=== PATIENT | male | born 1955 | race Hispanic/Latino ===

== ENCOUNTER 2020-08-14 19:02 | Inpatient (IN) | payer OTHER ==
[~2020-08-14] VITALS: Ht 177.8 cm; Wt 81.6 kg
[2020-08-14] MEDS ORDERED: CEFEPIME 1GM/NS 0.9% 50 ML 50 ML IV SCH (19:19)
[2020-08-14] MEDS ORDERED: VANCOMYCIN 1GM/NS 250 ML 250 ML IV STA (19:19)
[2020-08-14 19:58] LABS: BASOPHILS % 0.4 % (0.0-1.0); EOSINOPHILS # (AUTO) 0.3 (0.0-0.4); EOSINOPHILS % 3.7 % (0.0-6.0); HEMATOCRIT 32.1 % (38.2-49.6); HEMOGLOBIN 10.5 g/dL (14.0-18.0); LYMPHOCYTES # (AUTO) 2.1 (1.0-3.2); LYMPHOCYTES % 27.9 % (18.0-39.1); MEAN CORPUSCULAR HEMOGLOBIN 25.7 pg (28-32); MEAN CORPUSCULAR HGB CONC 32.7 g/dL (31-35); MEAN CORPUSCULAR VOLUME 78.7 fL (81-99); MONOCYTES # (AUTO) 0.5 (0.2-0.8); MONOCYTES % 6.4 % (4.4-11.3); NEUTROPHILS # (AUTO) 4.5 (2.1-6.9); NEUTROPHILS % 60.9 % (38.7-80.0); PLATELET COUNT 286 x10e3/uL (140-360); RED BLOOD COUNT 4.08 x10e6/uL (4.3-5.7); RED CELL DISTRIBUTION WIDTH 13.2 % (11.7-14.4)
[2020-08-14 20:12] LABS: ALANINE AMINOTRANSFERASE 12 IU/L (0-55); ALBUMIN 3.6 g/dL (3.5-5.0); ALKALINE PHOSPHATASE 124 IU/L (40-150); ANION GAP 13.4 mmol/L (8-16); BLOOD UREA NITROGEN 21 mg/dL (7-26); BUN/CREATININE RATIO 19 (6-25); CALCIUM 9.5 mg/dL (8.4-10.2); CARBON DIOXIDE 27 mmol/L (22-29); CHLORIDE 105 mmol/L (98-107); CREATINE KINASE 53 IU/L (30-200); EST GLOMERULAR FILTRATION RATE > 60 ML/MIN (60-); GLUCOSE 326 mg/dL (74-118); POTASSIUM 4.4 mmol/L (3.5-5.1); SODIUM 141 mmol/L (136-145)
--- OUTSIDE RECORDS SUMMARY | 2020-08-14 20:53 | XMS REPORT | Clinical Summary ---
Author Author [employer] Address Unknown Phone Unavailable Care Team Providers Care Phlebotomy Support Tech Name Role Phone Ronald Seay MD PCP Allergies No Known Active Allergies Medications End Date Status Medication Sig Dispensed Refills Start Date Active tamsulosin (FLOMAX) 0.4 Take 0.4 mg 0 mg capsule by mouth every morning. Active hydroCHLOROthiazide Take 25 mg by 0 (HYDRODIURIL) 25 MG mouth every tablet morning. Active insulin 70/30 NPH and Inject 30 0 regular human (HumuLIN Units under 70/30) 100 unit/mL the skin 2 (70-30) injection (two) times a day. Breakfast and at night Active lisinopriL (PRINIVIL) 40 Take 1 tablet 30 tablet 0 mg tablet (40 mg total) 0 by mouth daily. 04/27/2020 Discontinued (Stop Taking at Discharge) lisinopriL (PRINIVIL) 10 Take 10 mg by 0 mg tablet mouth every morning. Active Problems Problem Noted Date Prostatocystitis 04/19/2020 Encounters Care Team Description Date Type Specialty Herman Dobbs MD CYSTOSCOPY W/ SALINE BIPOLAR TRANSURETHR AL RESECTION OF PROSTATE, TRANSURETHRAL DRAINAGE OF PROSTATIC ABCESS, URINE AND PROSTATE ABCESS CULTURES 04/24/2020 Surgery Urology Niranjan, DO Skyler Fonseca Amybeth, APRN 04/24/2020 Anesthesia Urology Event Farshad Escalante MD Arriaga, Michael, MD Nguyen, Thuyen T., MD Lock, Coni Bui MD Prostatocystitis (Primary Dx); Hypotension, unspecified hypotension type; Tachycardia; Lactic acidosis; Shortness of breath; Hyperkalemia; Hyponatremia; Benign prostatic hyperplasia with lower urinary tract symptoms 04/19/2020 [facility] General Surgery - Encounter 04/27/2020 Herman Dobbs MD Preoperative testing (Primary Dx); Preop testing 04/19/2020 Pre-Admit Pre-Admission Testi ng Testing Appointment 04/19/2020 Travel 04/16/2020 Travel after 08/14/2019 Surgical History Surgery Date Site/Laterality Comments CYSTO, SALINE TURP 04/24/2020 N/A Procedure: CYSTOSCOPY W/ SALINE BIPOLAR (BIPOLAR) TRANSURETHRAL RESECTION OF PROSTATE, TRANSURETHRAL DRAINAGE OF PROSTATIC ABCESS, URINE AND PROSTATE ABCESS CULTURES; Surgeon: Marilyn Dobbs MD; Location: [facility]; Service: Urolog y; Laterality: N/A; Medical History Medical History Date Comments Hypertension 2015 Benign prostatic hyperplasia BPH (benign prostatic hyperplasia) Diabetes mellitus type I (HCC) 1999 ABS 120 -280 SOB (shortness of breath) on exertion Social History Date Tobacco Use Types Packs/Day Years Used Never Smoker 0 0 Smokeless Tobacco: Never Used Drinks/Week oz/Week Comments Alcohol Use 0 Glasses of wine 0 Cans of beer 0 Shots of liquor 0 Standard drinks or equivalent 0.0 Not Currently Sex Assigned at Date Recorded Not on file Last Filed Vital Signs Reading Time Taken Comments Vital Sign 180/89 04/27/2020 11:22 AM CDT Blood Pressure 76 04/27/2020 11:22 AM CDT Pulse 36.8 C (98.2 F) 04/27/2020 11:22 AM CDT Temperature 18 04/27/2020 11:22 AM CDT Respiratory Rate 95% 04/27/2020 11:22 AM CDT Oxygen Saturation - - Inhaled Oxygen Concentration 77.6 kg (171 lb) 04/25/2020 8:23 AM CDT Weight 177.8 cm (5' 10") 04/24/2020 6:46 AM CDT Height 24.54 04/24/2020 6:46 AM CDT Body Mass Index Plan of Treatment Health Maintenance Due Date Last Done Comments COLONOSCOPY SCREENING 2007 SHINGLES VACCINES (#1) 2007 INFLUENZA VACCINE 05/04/2020 Procedures Comments Procedure Name Priority Date/Time Associated Diag nosis POC GLUCOSE Routine 04/27/2020 11:22 AM CDT POC GLUCOSE Routine 04/27/2020 7:40 AM CDT HC COMPLETE BLD COUNT Routine 04/27/2020 W/AUTO DIFF 4:36 AM CDT ESTIMATED GFR Routine 04/27/2020 4:00 AM CDT BASIC METABOLIC PANEL Routine 04/27/2020 4:00 AM CDT POC GLUCOSE Routine 04/26/2020 8:59 PM CDT POC GLUCOSE Routine 04/26/2020 5:09 PM CDT POC GLUCOSE Routine 04/26/2020 11:05 AM CDT POC GLUCOSE Routine 04/26/2020 7:23 AM CDT ESTIMATED GFR Routine 04/26/2020 3:20 AM CDT HC COMPLETE BLD COUNT Routine 04/26/2020 W/AUTO DIFF 3:20 AM CDT BASIC METABOLIC PANEL Routine 04/26/2020 3:20 AM CDT POC GLUCOSE Routine 04/25/2020 9:26 PM CDT VANCOMYCIN LEVEL, TROUGH Timed 04/25/2020 5:30 PM CDT POC GLUCOSE Routine 04/25/2020 4:23 PM CDT POC GLUCOSE Routine 04/25/2020 11:20 AM CDT POC GLUCOSE Routine 04/25/2020 7:33 AM CDT POC GLUCOSE Routine 04/25/2020 5:40 AM CDT ESTIMATED GFR Routine 04/25/2020 4:35 AM CDT BASIC METABOLIC PANEL Routine 04/25/2020 4:35 AM CDT CBC WITH PLATELET AND Routine 04/25/2020 DIFFERENTIAL 4:15 AM CDT POC GLUCOSE Routine 04/25/2020 2:09 AM CDT POC GLUCOSE Routine 04/24/2020 9:04 PM CDT POC GLUCOSE Routine 04/24/2020 4:16 PM CDT POC GLUCOSE Routine 04/24/2020 11:14 AM CDT URINE CULTURE Timed 04/24/2020 11:05 AM CDT POC GLUCOSE Routine 04/24/2020 9:48 AM CDT AFB STAIN Timed 04/24/2020 9:13 AM CDT GRAM STAIN Timed 04/24/2020 9:13 AM CDT FUNGUS SMEAR Timed 04/24/2020 9:13 AM CDT AFB CULTURE Timed 04/24/2020 Benign prostati c 9:13 AM CDT hyperplasia with lower urinary tract symptoms AEROBIC CULTURE Timed 04/24/2020 Benign prostat ic 9:13 AM CDT hyperplasia with lower urinary tract symptoms FUNGUS CULTURE Timed 04/24/2020 Benign prostati c 9:13 AM CDT hyperplasia with lower urinary tract symptoms ANAEROBIC CULTURE Timed 04/24/2020 Benign prost atic 9:13 AM CDT hyperplasia with lower urinary tract symptoms ANAEROBIC CULTURE Timed 04/24/2020 Benign prost atic 9:00 AM CDT hyperplasia with lower urinary tract symptoms ANESTHESIA INTUBATION Routine 04/24/2020 8:16 AM CDT CYSTO, SALINE TURP 04/24/2020 Benign prostatic (BIPOLAR) 7:57 AM CDT hyperplasia with lo wer urinary tract symptoms Case Notes EST 75 MIN, POSSIBLE EXTENDED STAY Special Needs EST 75 MIN, POSSIBLE EXTENDED STAY ESTIMATED GFR Routine 04/24/2020 3:55 AM CDT HC COMPLETE BLD COUNT Routine 04/24/2020 W/AUTO DIFF 3:55 AM CDT BASIC METABOLIC PANEL Routine 04/24/2020 3:55 AM CDT POC GLUCOSE Routine 04/23/2020 9:01 PM CDT POC GLUCOSE Routine 04/23/2020 5:13 PM CDT POC GLUCOSE Routine 04/23/2020 12:17 PM CDT POC GLUCOSE Routine 04/23/2020 8:07 AM CDT ESTIMATED GFR Routine 04/23/2020 4:00 AM CDT BASIC METABOLIC PANEL Routine 04/23/2020 4:00 AM CDT HC COMPLETE BLD COUNT Routine 04/23/2020 W/AUTO DIFF 3:30 AM CDT POC GLUCOSE Routine 04/22/2020 9:29 PM CDT POC GLUCOSE Routine 04/22/2020 5:20 PM CDT POC GLUCOSE Routine 04/22/2020 12:49 PM CDT POC GLUCOSE Routine 04/22/2020 8:42 AM CDT ESTIMATED GFR Routine 04/22/2020 4:30 AM CDT VANCOMYCIN LEVEL, TROUGH Routine 04/22/2020 4:30 AM CDT HC COMPLETE BLD COUNT Routine 04/22/2020 W/AUTO DIFF 4:30 AM CDT BASIC METABOLIC PANEL Routine 04/22/2020 4:30 AM CDT POC GLUCOSE Routine 04/21/2020 8:56 PM CDT POC GLUCOSE Routine 04/21/2020 5:29 PM CDT POC GLUCOSE Routine 04/21/2020 12:36 PM CDT POC GLUCOSE Routine 04/21/2020 7:11 AM CDT ESTIMATED GFR Routine 04/21/2020 4:00 AM CDT HC COMPLETE BLD COUNT Routine 04/21/2020 W/AUTO DIFF 4:00 AM CDT BASIC METABOLIC PANEL Routine 04/21/2020 4:00 AM CDT POC GLUCOSE Routine 04/20/2020 8:56 PM CDT POC GLUCOSE Routine 04/20/2020 5:27 PM CDT POC GLUCOSE Routine 04/20/2020 12:55 PM CDT US RENAL Routine 04/20/2020 9:40 AM CDT POC GLUCOSE Routine 04/20/2020 7:45 AM CDT ESTIMATED GFR Routine 04/20/2020 5:15 AM CDT HIV AG/AB COMBINATION Routine 04/20/2020 5:15 AM CDT LACTIC ACID LEVEL Routine 04/20/2020 5:15 AM CDT MAGNESIUM LEVEL Routine 04/20/2020 5:15 AM CDT BASIC METABOLIC PANEL Routine 04/20/2020 5:15 AM CDT HC COMPLETE BLD COUNT Routine 04/20/2020 W/AUTO DIFF 5:15 AM CDT OSMOLALITY, URINE Routine 04/20/2020 5:15 AM CDT CREATININE LEVEL, URINE, Routine 04/20/2020 RANDOM 5:15 AM CDT SODIUM LEVEL, URINE, Routine 04/20/2020 RANDOM 5:15 AM CDT POC GLUCOSE Routine 04/20/2020 5:12 AM CDT LACTIC ACID LEVEL, SEPSIS Timed 04/19/2020 - NOW AND REPEAT 2X EVERY 11:40 PM CDT 3 HOURS TROPONIN Timed 04/19/2020 11:40 PM CDT COVID-19 QUALITATIVE PCR STAT 04/19/2020 9:35 PM CDT LACTIC ACID LEVEL, SEPSIS Timed 04/19/2020 - NOW AND REPEAT 2X EVERY 9:26 PM CDT 3 HOURS TROPONIN Timed 04/19/2020 9:26 PM CDT URINE CULTURE Routine 04/19/2020 7:34 PM CDT URINALYSIS SCREEN AND Routine 04/19/2020 MICROSCOPY, WITH REFLEX 7:[address] ANGIOGRAM PE CHEST STAT 04/19/2020 7:[address] ABDOMEN PELVIS W STAT 04/19/2020 CONTRAST 7:16 PM CDT VENOUS BLOOD GAS Routine 04/19/2020 6:35 PM CDT BETA HYDROXYBUTYRATE STAT 04/19/2020 6:30 PM CDT LACTIC ACID LEVEL STAT 04/19/2020 5:30 PM CDT ESTIMATED GFR STAT 04/19/2020 5:30 PM CDT B NATRIURETIC PEPTIDE STAT 04/19/2020 5:30 PM CDT TROPONIN STAT 04/19/2020 5:30 PM CDT CREATINE KINASE, TOTAL STAT 04/19/2020 (CPK) 5:30 PM CDT COMPREHENSIVE METABOLIC STAT 04/19/2020 PANEL 5:30 PM CDT PARTIAL THROMBOPLASTIN STAT 04/19/2020 TIME (PTT) 5:30 PM CDT PROTHROMBIN TIME WITH INR STAT 04/19/2020 5:30 PM CDT HC COMPLETE BLD COUNT STAT 04/19/2020 W/AUTO DIFF 5:30 PM CDT BLOOD CULTURE, AEROBIC & Routine 04/19/2020 ANAEROBIC 5:30 PM CDT BLOOD CULTURE, AEROBIC & Routine 04/19/2020 ANAEROBIC 5:25 PM CDT ECG ED PRELIMINARY Routine 04/19/2020 INTERPRETATION 5:13 PM CDT HI CRITICAL CARE, E/M Routine 04/19/2020 30-74 MINUTES 5:13 PM CDT ECG 12-LEAD STAT 04/19/2020 5:07 PM CDT COVID-19 QUALITATIVE PCR Routine 04/19/2020 Preop erative testing 4:31 PM CDT ECG PRE/POST OP Routine 04/19/2020 Preop testing 4:17 PM CDT ESTIMATED GFR Routine 04/19/2020 3:18 PM CDT HC COMPLETE BLD COUNT Routine 04/19/2020 Preop te sting W/AUTO DIFF 3:18 PM CDT COMPREHENSIVE METABOLIC Routine 04/19/2020 Preop testing PANEL 3:18 PM CDT HEMOGLOBIN A1C Routine 04/19/2020 Preop testing 3:18 PM CDT after 08/14/2019 Results * POC glucose (04/27/2020 11:22 AM CDT) Only the most recent of 33 results within the time period is included. POC glucose 204 (H) 65 - 99 mg/dL [facility] Comment: CONFUCIANISM Paper Deliverer Name: [facility] Device ID: [id number] Chartable: PENDING SALE TO [facility] Notified RN Specimen Blood Performing Organization Address City/State/ZIP Code P kelly Number [facility] DEPARTMENT OF [address] [place] [address] PATHOLOGY AND GENOMIC MEDICINE [place] [facility] [address] [place] [address] * CBC with platelet and differential (04/27/2020 4:36 AM CDT) Only the most recent of 10 results within the time period is included. [facility] WBC 9.93 4.50 - 11.00 k/uL [facility] RBC 3.43 (L) 4.40 - 6.00 m/uL [facility] HGB 8.4 (L) 14.0 - 18.0 g/dL [facility] HCT 27.4 (L) 41.0 - 51.0 % [facility] MCV 79.9 (L) 82.0 - 100.0 fL [facility] MCH 24.5 (L) 27.0 - 34.0 pg [facility] MCHC 30.7 (L) 31.0 - 37.0 g/dL [facility] RDW - SD 39.2 37.0 - 55.0 fL [facility] MPV 8.9 8.8 - 13.2 fL [facility] Platelet count 238 150 - 400 k/uL [facility] Nucleated RBC 0.00 /100 WBC [facility] Neutrophils 65.5 39.0 - 69.0 % [facility] Lymphocytes 19.4 (L) 25.0 - 45.0 % [facility] Monocytes 10.1 (H) 0.0 - 10.0 % [facility] Eosinophils 3.1 0.0 - 5.0 % [facility] Basophils 0.4 0.0 - 1.0 % [facility] Immature 1.5 (H)Comment: "Immature 0.0 - 1.0 % [facility] granulocytes granulocytes" (promyelocytes, METHOD IST myelocytes, metamyelocytes) HOSPITAL Specimen Blood Performing Organization Address City/State/ZIP Code P kelly Number [facility] DEPARTMENT OF [address] [place] [address] PATHOLOGY AND GENOMIC MEDICINE [address] * Estimated GFR (04/27/2020 4:00 AM CDT) Only the most recent of 10 results within the time period is included. [facility] Estimated GFR 69 mL/min/1.73 m2 [place] Comment: [facility] Interpretation G1 >=90 Normal or high G2 60-89 Mildly decreased G3a 45-59 Mildly to moderately decreased G3b 30-44 Moderately to severely decreased G4 15-29 Severely decreased G5 <15 Kidney failure The eGFR was calculated using the Chronic Kidney Disease Epidemiology Collaboration (CKD-EPI) equation. Interpretation is based on recommendations of the National Kidney Foundation-Kidney Disease Outcomes Quality Initiative (NKF-KDOQI) published in 2014. Specimen Performing Organization Address City/[facility] P kelly Number [facility] DEPARTMENT OF [address] [place] [address] PATHOLOGY AND GENOMIC MEDICINE [address] * Basic metabolic panel (04/27/2020 4:00 AM CDT) Only the most recent of 8 results within the time period is included. Pathologist [facility] Sodium 145 135 - 148 mEq/L [facility] Potassium 3.6 3.5 - 5.0 mEq/L [facility] Chloride 107 98 - 112 mEq/L [facility] CO2 27 24 - 31 mEq/L [facility] Anion gap 11@ANIO 7 - 15 mEq/L [facility] BUN 12 8 - 23 mg/dL [facility] Creatinine 1.13 0.70 - 1.20 mg/dL [facility] Glucose 117 (H) 65 - 99 mg/dL [facility] Calcium 9.1 8.8 - 10.2 mg/dL [facility] Specimen Blood Performing Organization Address City/[facility] P kelly Number [facility] [place] [address] PATHOLOGY AND [facility] [address] * Vancomycin level, trough (04/25/2020 5:30 PM CDT) Only the most recent of 2 results within the time period is included. Pathologist [facility] Vancomycin, 14.1 10.0 - 20.0 ug/mL [facility] trough Comment: CONFUCIANISM Therapeutic Ranges: HOSPITAL Peak 30.0 - 40.0 ug/mL Trough 10.0 - 20.0 ug/mL Specimen Serum Performing Organization Address City/[facility] P kelly Number [facility] [place] [address] PATHOLOGY AND GENOMIC MEDICINE [address] * Urine culture (04/24/2020 11:05 AM CDT) Only the most recent of 2 results within the time period is included. Pathologist [facility] Urine culture Staphylococcus aureus [facility] isolate 10-5 cfu/ml CONFUCIANISM susceptibility to [facility] This organism is Methicillin Resistant. (A) Comment: Specimen Information Specimen Source: Urine Specimen Site: Urinary bladder:Urine for culture/ Specimen Urine Antibiotic Method Susceptibility Organism Ampicillin MARIVEL mcg/mL: Resistant Staphylococcus aureus Cefazolin MARIVEL mcg/mL: Resistant Staphylococcus aureus Clindamycin MARIVEL <=0.5 mcg/mL: Susceptible Staphylococcus aureus Doxycycline MARIVEL <=0.5 mcg/mL: Susceptible Staphylococcus aureus Erythromycin MARIVEL >4 mcg/mL: Resistant Staphylococcus aureus Linezolid MARIVEL 2 mcg/mL: Susceptible Staphylococcus aureus Nitrofurantoin MARIVEL <=16 mcg/mL: Susceptible Staphylococcus aureus Oxacillin MARIVEL >4 mcg/mL: Resistant Staphylococcus aureus Penicillin G MARIVEL >1 mcg/mL: Resistant Staphylococcus aureus Rifampin MARIVEL <=0.25 mcg/mL: Susceptible Staphylococcus aureus Tetracycline MARIVEL <=0.5 mcg/mL: Susceptible Staphylococcus aureus Trimethoprim/Sulfamethoxazole MARIVEL <=0.5/9.5 mcg/mL: Susceptible Staphylococcus aureus Vancomycin MARIVEL 1 mcg/mL: Susceptible Staphylococcus aureus Performing Organization Address City/[facility]/ZIP Code P kelly Number [facility] [place] [address] PATHOLOGY AND [facility] [address] * Fungus smear (04/24/2020 9:13 AM CDT) Fungus smear No fungi observed. [facility] Comment: CONFUCIANISM Specimen Information HOSPITAL Specimen Source: Abscess Specimen Site: Prostate: drainage Specimen Abscess Performing Organization Address City/[facility] P kelly Number [facility] [place] [address] PATHOLOGY AND [facility] [address] * AFB culture (04/24/2020 9:13 AM CDT) AFB culture No growth after 6 weeks of [facility] isolate incubation. CONFUCIANISM Comment: HOSPITAL Specimen Information Specimen Source: Abscess Specimen Site: Prostate: drainage Specimen Drainage - Prostate Performing Organization Address City/[facility]/ZIP Code P kelly Number [facility] [place] [address] PATHOLOGY AND [facility] [address] * Aerobic culture (04/24/2020 9:13 AM CDT) Aerobic culture Staphylococcus aureus NADINE isolate Occasional CONFUCIANISM susceptibility to follow HOSPITAL This organism is Methicillin Resistant. (A) Comment: Specimen Information Specimen Source: Abscess Specimen Site: Prostate: drainage Specimen Drainage - Prostate Antibiotic Method Susceptibility Organism Ampicillin MARIVEL mcg/mL: Resistant Staphylococcus aureus Cefazolin MARIVEL mcg/mL: Resistant Staphylococcus aureus Chloramphenicol MARIVEL mcg/mL: Susceptible Staphylococcus aureus Clindamycin MARIVEL <=0.5 mcg/mL: Susceptible Staphylococcus aureus Doxycycline MARIVEL <=0.5 mcg/mL: Susceptible Staphylococcus aureus Erythromycin MARIVEL >4 mcg/mL: Resistant Staphylococcus aureus Linezolid MARIVEL 2 mcg/mL: Susceptible Staphylococcus aureus Minocycline MARIVEL <=1 mcg/mL: Susceptible Staphylococcus aureus Oxacillin MARIVEL >4 mcg/mL: Resistant Staphylococcus aureus Penicillin G MARIVEL >1 mcg/mL: Resistant Staphylococcus aureus Rifampin MARIVEL <=0.25 mcg/mL: Susceptible Staphylococcus aureus Tetracycline MARIVEL <=0.5 mcg/mL: Susceptible Staphylococcus aureus Trimethoprim/Sulfamethoxazole MARIVEL <=0.5/9.5 mcg/mL: Susceptible Staphylococcus aureus Vancomycin MARIVEL 1 mcg/mL: Susceptible Staphylococcus aureus Performing Organization Address [facility]/ZIP Code P kelly Number [facility] [place] [address] PATHOLOGY AND GENOMIC MEDICINE [place] CONFUCIANISM [address] [place] [address] * Gram stain (04/24/2020 9:13 AM CDT) Gram stain Occasional WBC's MCCOY isolate Moderate Gram positive cocci [facility] T in [facility] HOSPITAL Moderate Gram positive cocci in clusters Comment: Specimen Information Specimen Source: Abscess Specimen Site: Prostate: drainage Specimen Abscess Performing Organization Address [facility] P kelly Number [facility] [place] [address] PATHOLOGY AND GENOMIC MEDICINE [place] [facility]CIANISM [address] [place] [address] * AFB stain (04/24/2020 9:13 AM CDT) AFB stain No acid fast bacilli (AFB) MCCOY seen. CONFUCIANISM Comment: HOSPITAL Specimen Information Specimen Source: Abscess Specimen Site: Prostate: drainage Specimen Abscess Performing Organization Address City/[facility]/ZIP [facility] P kelly Number [facility] [place] [address] PATHOLOGY AND GENOMIC MEDICINE [place] CONFUCIANISM [address] [place] [address] * Fungus culture (04/24/2020 9:13 AM CDT) Fungus culture No growth after 4 weeks of MCCOY isolate incubation. CONFUCIANISM Comment: HOSPITAL Specimen Information Specimen Source: Abscess Specimen Site: Prostate: drainage Specimen Drainage - Prostate Performing Organization Address City/[facility]/ZIP Code P kelly Number [facility] DEPARTMENT OF [address] [place] [address] PATHOLOGY AND GENOMIC MEDICINE [place] CONFUCIANISM [address] [place] [address] * Anaerobic culture (04/24/2020 9:13 AM CDT) Only the most recent of 2 results within the time period is included. Anaerobic No anaerobic organisms [facility] culture isolate isolated. CONFUCIANISM Comment: HOSPITAL Specimen Information Specimen Source: Abscess Specimen Site: Prostate: drainage Specimen Drainage - Prostate Performing Organization Address City/[facility] Code P kelly Number [facility] [place] [address] PATHOLOGY AND GENOMIC MEDICINE [place] CONFUCIANISM [address] [place] [address] * Airway (04/24/2020 8:16 AM CDT) Narrative Performed At Macy Dejesus CRNA 0 8:17 AM Airway Performed by: Macy Dejesus CRNA Authorized by: Raymundo Ureña DO Location: OR Resident/CRANE HOIST OR LIFT OPERATOR/AA: Macy Dejesus CRNA Preoxygenated with 100% O2: Yes C-spine Precautions Maintained Througho ut: Yes Mask Ventilation: Not attempted Final Airway Type: Endotracheal airwa y Final Endotracheal Airway: ETT Technique Used: Direct laryngoscopy Blade Type: [place] Laryngoscope Blade/Videolaryngoscope Bl jhnony Size: 2 ETT Size (mm): 8.0 Measured from: Lips ETT to Lips (cm): 23 Placement Verified by: CO2 detection, d irect visualization and equal breath sounds Laryngoscopic view: Grade I - full vi ew of glottis Number of Attempts at Approach: 1 ANterior- EZ OETT, no problems, teeth a nd mouth protected and unchanged. * US Renal (04/20/2020 9:40 AM CDT) Specimen Narrative Performed At EXAMINATION: US RENAL RADIANT CLINICAL HISTORY: acute renal failure COMPARISON: CT abdomen and pelvis perfo rmed April 19, 2020. IMPRESSION: 1.No hydronephrosis. 2.Normal renal size and echogenicity. 3.Diffuse bladder wall thickening may b e due detrussor muscle hypertrophy from chronic outlet obstruction or secondary to inflammatory or infectious cystitis. FINDINGS: RIGHT KIDNEY: *Position and Orientation: Normal. *Renal Cortical Echogenicity: Normal. *Size: 10.5 x 6.2 x 4.7 cm. *Cyst: 3.6 cm cyst of the anterior lowe r pole. *Mass: None. *Calculus: None. *Hydronephrosis: None. LEFT KIDNEY: *Position and Orientation: Normal. *Renal Cortical Echogenicity: Normal. *Size: 10.2 x 6.8 x 5.8 cm. *Cyst: None. *Mass: None. *Calculus: None. *Hydronephrosis: None. BLADDER: Urinary bladder wall is diffus marie thickened, and the lumen is decompressed by a Plummer. [id number] Procedure Note Hm Interface, Radiology Results Incoming - 04/20/2020 11:34 AM CDT EXAMINATION: US RENAL CLINICAL HISTORY: acute renal failure COMPARISON: CT abdomen and pelvis performed April 19, 2020. IMPRESSION: 1.No hydronephrosis. 2.Normal renal size and echogenicity. 3.Diffuse bladder wall thickening may be due detrussor muscle hypertrophy from chronic outlet obstruction or secondary to inflammatory or infectious cystitis. FINDINGS: RIGHT KIDNEY: *Position and Orientation: Normal. *Renal Cortical Echogenicity: Normal. *Size: 10.5 x 6.2 x 4.7 cm. *Cyst: 3.6 cm cyst of the anterior lower pole. *Mass: None. *Calculus: None. *Hydronephrosis: None. LEFT KIDNEY: *Position and Orientation: Normal. *Renal Cortical Echogenicity: Normal. *Size: 10.2 x 6.8 x 5.8 cm. *Cyst: None. *Mass: None. *Calculus: None. *Hydronephrosis: None. BLADDER: Urinary bladder wall is diffusely thickened, and the lumen is decompressed by a Plummer. [id number] Performing Organization Address City/State/ZIP Code P kelly Number [facility] [address] [place] [address] * HIV Ag/Ab combination (04/20/2020 5:15 AM CDT) HIV Ag/Ab Non-reactive Non-reactive [facility] Specimen Blood Performing Organization Address City/State/ZIP Code P kelly Number [facility] DEPARTMENT OF [address] [place] [address] PATHOLOGY AND GENOMIC MEDICINE [address] * Sodium level, urine, random (04/20/2020 5:15 AM CDT) Sodium, urine, 99 mEq/L [facility] random [facility] Specimen Urine Performing Organization Address City/[facility]/ZIP Code P kelly Number [facility] [place] [address] PATHOLOGY AND GENOMIC MEDICINE [address] * Osmolality, urine (04/20/2020 5:15 AM CDT) Osmolality, 408 50 - 1,400 mOsm/kg [facility] urine [facility] Specimen Urine Performing Organization Address City/[facility] P kelly Number [facility] [place] [address] PATHOLOGY AND [facility] [address] * Creatinine level, urine, random (04/20/2020 5:15 AM CDT) Creatinine, 52 mg/dL [place] urine, random [facility] Specimen Urine Performing Organization Address City/[facility] [facility] [facility] [place]elly Number [facility] [place] [address] PATHOLOGY AND GENOMIC MEDICINE [address] * Magnesium level (04/20/2020 5:15 AM CDT) Magnesium 1.9 1.6 - 2.4 mg/dL [facility] Specimen Blood Performing Organization Address City/[facility]/ZIP Code P kelly Number [facility] OF [address] [place] [address] PATHOLOGY AND GENOMIC MEDICINE [address] * Lactic acid level (04/20/2020 5:15 AM CDT) Only the most recent of 2 results within the time period is included. Lactic acid 1.6 0.5 - 2.2 mmol/L [facility] Specimen Blood Performing Organization Address City/[facility]/ZIP Code P kelly Number [facility] [address] [place] [address] PATHOLOGY AND GENOMIC MEDICINE [address] * Lactic acid level, SEPSIS - Now and repeat 2x every 3 hours (04/19/2020 11:40 PM CDT) Only the most recent of 2 results within the time period is included. Lactic acid 1.6 0.5 - 2.2 mmol/L [facility] Specimen Blood Performing Organization Address [facility] P kelly Number [facility] [place] [address] PATHOLOGY AND GENOMIC MEDICINE [address] * Troponin (04/19/2020 11:40 PM CDT) Only the most recent of 3 results within the time period is included. Troponin <0.006 0.000 - 0.040 ng/mL [facility] Comment: CONFUCIANISM In patients suspected of HOSPITAL having a myocardial infarction, along with all other appropriate clinical measures and actions including ECG and other diagnostics as appropriate, measure Ultra TnI at 0 hrs and at 3 hrs. Myocardial infarction VERY LIKELY The 0 hr TnI level is > 0.10 ng/mL Myocardial infarction LIKELY The 0 hr TnI level is > 0.04 ng/mL and 3 hr level is increased or decreased by at least 0.020 ng/mL Myocardial infarction VERY UNLIKELY Both the 0 hr and 3 hr TnI levels <= 0.04 ng/mL(within normal limits) OR 0 hr is > 0.04 ng/mL and 3 hr is increased OR decreased by less than 0.020 ng/mL Specimen Blood Performing Organization Address City/[facility]/ZIP Code P kelly Number [place] [id number] PATHOLOGY AND GENOMIC MEDICINE [place] [id number] [facility]ITAL * COVID-19 qualitative PCR (04/19/2020 9:35 PM CDT) Only the most recent of 2 results within the time period is included. Interpretation Negative results do not MCC[place] preclude 2019-nCoV infection CONFUCIANISM and should not be used as the HOSPITAL sole basis for treatment or other patient management decisions. Negative results must be combined with clinical observations, patient history, and epidemiological information. COVID-19 Not-Detected Not-Detected [facility] qualitative PCR CONFUCIANISM result HOSPITAL COVID-19 See link below for PDF Lab [facility] qualitative PCR ReportComment: Case Number: CONFUCIANISM [id number] HOSPITAL Specimen Nasopharyngeal swab Performing Organization Address [facility] P kelly Number [facility] [place] [address] PATHOLOGY AND GENOMIC MEDICINE [address] * Urinalysis screen and microscopy, with reflex to culture (04/19/2020 7:20 PM CDT) Specimen site Clean catch [facility] Color, UA Yellow [facility] Appearance, UA Hazy [facility] Specific 1.026 1.001 - 1.035 [facility] pH, UA 6.0 5.0 - 8.5 [facility] Protein, UA 2+ (A) Negative [facility] Glucose, UA 3+ (A) Negative [facility] Ketones, UA Negative Negative [facility] Bilirubin, UA Negative Negative [facility] Blood, UA Negative Negative [facility] Nitrite, UA Negative Negative [facility] Urobilinogen, <2.0 <2.0 [facility] Leukocyte Trace (A) Negative [facility] WBC, UA 9 (H) 0 - 1 /HPF [facility] RBC, UA 3 0 - 5 /HPF [facility] Bacteria, UA Few None seen [facility] WBC clumps, UA Few (A) [facility] Yeast, UA None seen [facility] Yeast with None seen [facility] Hyaline casts, 11 /LPF [facility] Specimen Urine Performing Organization Address [facility] P kelly Number [facility] [place] [address] PATHOLOGY AND GENOMIC MEDICINE [facility] CONFUCIANISM [address] [place] [address] H[address]ITAL * CT Angiogram Pe Chest (04/19/2020 7:16 PM CDT) Specimen Narrative Performed At EXAMINATION: CT ANGIOGRAM PE CHEST [facility] CLINICAL HISTORY: 64 years Male sob h ypotenstion tachycardia TECHNIQUE: Contrast enhanced multidet soumya-row chest computed tomography protocol. Computed tomographic angiogra phic images of the chest and upper abdomen were obtained during the uncomp licated intravenous administration of iodinated contrast utilizing a bolus-tracking technique centered on the main pulmonary artery and iterative reconstruction techniques and/or automa liu exposure control to reduce radiation dose. Computerized reformatted images a nd 3-D Coronal MIP images were created by a dedicated wood technologist at the scanner and archive d in PACS. COMPARISON: None available. FINDINGS: Study Quality: The examination for the diagnosis of pulmonary embolism is adequate. Pulmonary arteries: *Normal without acute pulmonary embolis m. *Normal main pulmonary trunk. Pulmonary Parenchyma and airways: *Patent central airways. *Faint tree-in-bud opacities with mild bronchial thickening is noted within the right upper lung, nonspecific. *No suspicious pulmonary nodule. Pleural spaces: No pleural effusion or pneumothorax. Cardiovascular: *The cardiac chambers are normal in siz e. *No pericardial abnormality is present. *Multifocal mild atherosclerotic diseas e. Mediastinum and Mary: No mediastinal ma ss or enlarged lymph node. Osseous structures and Chest Wall: No a cute or pathologic osseous or soft-tissue process is present. Lower Neck: No actionable thyroid nodul e. Upper Abdomen: Please refer to the conc urrently obtained but separately dictated CT of the abdomen and pelvis for furthe r evaluation of the upper abdominal structures. Additional Findings: None. IMPRESSION: 1.No acute pulmonary embolism. 2.Nonspecific findings within the right upper lung which could represent mild chronic bronchitis/small vessel disease , clinical correlation recommended. No lobar consolidation. 3.Please refer to the concurrently obta ined but separately dictated CT the abdomen and pelvis for further evaluati on. [facility]-[id number] Procedure Note Interface, Radiology Results Incoming - 04/19/2020 7:25 PM CDT EXAMINATION: CT ANGIOGRAM PE CHEST CLINICAL HISTORY: 64 years Male sob hypotenstion tachycardia TECHNIQUE: Contrast enhanced multidetector-row chest computed tomography protocol. Computed tomographic angiographic images of the chest and upper abdomen were obtained during the uncomplicated intravenous administration of iodinated contrast utilizing a bolus-tracking technique centered on the main pulmonary artery and iterative reconstruction techniques and/or automated exposure control to reduce radiation dose. Computerized reformatted images and 3-D Coronal MIP images were created by a dedicated wood technologist at the scanner and archived in PACS. COMPARISON: None available. FINDINGS: Study Quality: The examination for the diagnosis of pulmonary embolism is adequate. Pulmonary arteries: *Normal without acute pulmonary embolism. *Normal main pulmonary trunk. Pulmonary Parenchyma and airways: *Patent central airways. *Faint tree-in-bud opacities with mild bronchial thickening is noted within the right upper lung, nonspecific. *No suspicious pulmonary nodule. Pleural spaces: No pleural effusion or pneumothorax. Cardiovascular: *The cardiac chambers are normal in size. *No pericardial abnormality is present. *Multifocal mild atherosclerotic disease. Mediastinum and Mary: No mediastinal mass or enlarged lymph node. Osseous structures and Chest Wall: No acute or pathologic osseous or soft-tissue process is present. Lower Neck: No actionable thyroid nodule. Upper Abdomen: Please refer to the concurrently obtained but separately dictated CT of the abdomen and pelvis for further evaluation of the upper abdominal structures. Additional Findings: None. IMPRESSION: 1.No acute pulmonary embolism. 2.Nonspecific findings within the right upper lung which could represent mild chronic bronchitis/small vessel disease, clinical correlation recommended. No lobar consolidation. 3.Please refer to the concurrently obtai teddy but separately dictated CT the abdomen and pelvis for further evaluation. [facility]-[id number] Performing Organization Address City/State/ZIP Code P kelly Number [facility] [address] [place] [address] * CT Abdomen Pelvis W Contrast (04/19/2020 7:16 PM CDT) Specimen Narrative Performed At EXAMINATION: CT ABDOMEN PELVIS W CONTRAST SHANICE NT CLINICAL HISTORY: lower abd pain TECHNIQUE: Multiple axial images of the abdomen and pelvis were obtained following intravenous administration of iodinated contrast. Sagittal and coronal computerized reformatted images were al so obtained.. All CT images were acquired using radiation dose lowering technique with automated exposure control and / or iterative reconstruction. COMPARISON: No IMPRESSION: ABDOMEN: 1. Volume loss and scarring in the late ral segment of the middle lobe. Minimal bibasilar scarring elsewhere. Lung base s otherwise clear. 2.The appendix is thickened, measuring 10 mm transverse, though there is no adjacent inflammation to indicate acute appendicitis. No discrete appendiceal mass is identified. A six-month follow- up is advised to exclude the possibility of an early appendiceal neoplasm. 3.Bowel loops show no evidence of obstr uction or acute inflammation, otherwise grossly unremarkable without enteric co ntrast. 4.Phrygian cap or tiny focus of adenomy omatosis at the gallbladder fundus which otherwise unremarkable. 5.Liver, bile ducts, pancreas unremarka ble. Spleen is borderline enlarged without focal lesion. 6.Adrenals, abdominal aorta and left ki dney unremarkable. An exophytic 3 cm cyst in the lower pole right kidney. No hydr onephrosis PELVIS: 1. Trace presacral stranding and free f luid. Upper normal external iliac lymph nodes and common iliac lymph nodes are likely reactive. 2.The prostate is nearly entirely repla oanh by multifocal rim-enhancing fluid collections, measuring up to 4.1 x 2.1 cm. The fluid collections extend caudally with broad abutment of the right levato r ani, and infra-levator extension, to involve the anterior margin of the external anal sp hincter, and the right obturator internus 3.The urinary bladder collapsed Plummer c atheter demonstrates wall thickening and stranding, indicative of cystitis. Semi nal vesicles are edematous. SUMMARY: Cystoprostatitis, with multifocal absce ss collections replacing the prostate diffusely, as well as involvement of th e pelvic floor on the right, and infra-levator extension on the right, w ith abutment of the right obturator internus. Thickened appendix without evidence of acute appendicitis or discrete mass. A six-month follow-up is advised to ensur e stability. Other incidental findings as above [id number] Procedure Note Hm Interface, Radiology Results Incoming - 04/19/2020 7:32 PM CDT EXAMINATION: CT ABDOMEN PELVIS W CONTRAST CLINICAL HISTORY: lower abd pain TECHNIQUE: Multiple axial images of the abdomen and pelvis were obtained following intravenous administration of iodinated contrast. Sagittal and coronal computerized reformatted images were also obtained.. All CT images were acquired using radiation dose lowering technique with automated exposure control and / or iterative reconstruction. COMPARISON: No IMPRESSION: ABDOMEN: 1. Volume loss and scarring in the later al segment of the middle lobe. Minimal bibasilar scarring elsewhere. Lung bases otherwise clear. 2.The appendix is thickened, measuring 1 0 mm transverse, though there is no adjacent inflammation to indicate acute appendicitis. No discrete appendiceal mass is identified. A six-month follow-up is advised to exclude the possibility of an early appendiceal neoplasm. 3.Bowel loops show no evidence of obstru ction or acute inflammation, otherwise grossly unremarkable without enteric contrast. 4.Phrygian cap or tiny focus of adenomyo matosis at the gallbladder fundus which otherwise unremarkable. 5.Liver, bile ducts, pancreas unremarkab le. Spleen is borderline enlarged without focal lesion. 6.Adrenals, abdominal aorta and left kid mildred unremarkable. An exophytic 3 cm cyst in the lower pole right kidney. No hydronephrosis PELVIS: 1. Trace presacral stranding and free fl uid. Upper normal external iliac lymph nodes and common iliac lymph nodes are likely reactive. 2.The prostate is nearly entirely replac ed by multifocal rim-enhancing fluid collections, measuring up to 4.1 x 2.1 cm. The fluid collections extend caudally with broad abutment of the right levator ani, and infra-levator extension, to involve the anterior margin of the external anal sphincter, and the right obturator internus 3.The urinary bladder collapsed Plummer ca theter demonstrates wall thickening and stranding, indicative of cystitis. Seminal vesicles are edematous. SUMMARY: Cystoprostatitis, with multifocal abscess collections replacing the prostate diffusely, as well as involvement of the pelvic floor on the right, and infra- levator extension on the right, with abutment of the right obturator internus. Thickened appendix without evidence of acute appendicitis or discrete mass. A six-month follow-up is advised to ensure stability. Other incidental findings as above [id number] Performing Organization Address City/State/ZIP Code P kelly Number [facility] [address] [place] [address] * Venous blood gas (04/19/2020 6:35 PM CDT) pH, venous 7.35 7.32 - 7.42 [facility] pCO2, venous 48 45 - 51 mmHg [facility] pO2, venous 28 25 - 40 mmHg [facility] Base excess, 1 -2 - 2 meq/L [facility] O2 saturation, 54 40 - 70 % [facility] Bicarbonate, 26.0 21.0 - 28.0 mmol/L [facility] Specimen Blood Performing Organization Address City/[facility] P kelly Number [facility] [place] [address] [address] * Beta hydroxybutyrate (04/19/2020 6:30 PM CDT) [facility] Beta 0.07 0.02 - 0.27 mmol/L [facility] hydroxybutyrate [facility] Specimen Serum Performing Organization Address [facility] P kelly Number [facility] [place] [address] * Blood culture, aerobic & anaerobic (04/19/2020 5:30 PM CDT) Only the most recent of 2 results within the time period is included. [facility] Blood culture No growth after 5 days of [facility] isolate incubation. CONFUCIANISM Comment: HOSPITAL Specimen Information Specimen Source: Blood Specimen Site: Forearm, right Specimen Blood - Forearm, right Performing Organization Address [facility] P kelly Number [facility] [address] * Partial thromboplastin time, activated (04/19/2020 5:30 PM CDT) [facility] PTT 42.3 (H) 23.0 - 36.0 sec [facility] Comment: CONFUCIANISM PTT therapeutic range for HOSPITAL unfractionated heparin is 61.0-112.0 seconds which corresponds to Anti-Xa 0.3-0.7 U/ml. Specimen Blood Performing Organization Address [facility] P kelly Number [facility] [place] [address] * Prothrombin time with INR (04/19/2020 5:30 PM CDT) [facility] Prothrombin 14.9 (H) 11.5 - 14.5 sec [facility] time [facility] INR 1.2 [facility] Comment: CONFUCIANISM The International Normalized HOSPITAL Ratio (INR) is a therapeutic monitoring tool for patients who are stable on oral anticoagulant therapy. An INR of 2.0-3.0 is suggested for deep vein thrombosis/pulmonary embolism. Specimen Blood Performing Organization Address [facility]/State/ZIP Code P kelly Number [facility] OF [address] [place] [address] PATHOLOGY AND GENOMIC MEDICINE [address] * B natriuretic peptide (04/19/2020 5:30 PM CDT) BNP 11 0 - 100 pg/mL [facility] Specimen Blood Performing Organization Address City/State[place] [facility] [place] Number [facility] [address] [place] [address] PATHOLOGY AND GENOMIC MEDICINE [address] * Creatine kinase, total (CPK) (04/19/2020 5:30 PM CDT) Creatine kinase 25 (L) 39 - 308 U/L [facility] Specimen Blood Performing Organization Address City/[facility] P kelly Number [facility] [address] [place] [address] PATHOLOGY AND GENOMIC MEDICINE [address] * Comprehensive metabolic panel (04/19/2020 5:30 PM CDT) Only the most recent of 2 results within the time period is included. Sodium 130 (L) 135 - 148 mEq/L [facility] Potassium 5.1 (H) 3.5 - 5.0 mEq/L [facility] Chloride 90 (L) 98 - 112 mEq/L [facility] CO2 23 (L) 24 - 31 mEq/L [facility] Anion gap 17@ANIO (H) 7 - 15 mEq/L [facility] BUN 26 (H) 8 - 23 mg/dL [facility] Creatinine 1.41 (H) 0.70 - 1.20 mg/dL [facility] Glucose 380 (H) 65 - 99 mg/dL [facility] Calcium 10.5 (H) 8.8 - 10.2 mg/dL [facility] Protein 8.6 (H) 6.3 - 8.3 g/dL [facility] Comment: [facility] 4.6-7.0 g/dL 1 week 4.4-7.6 g/dL 7 months-1year 5.1-7.3 g/dL 1-2 years 5.6-7.5 g/dL >3 years 6.0-8.0 g/dL 18-150 6.3-8.3 g/dL Albumin 3.4 (L) 3.5 - 5.0 g/dL [facility] A/G ratio 0.7 0.7 - 3.8 [facility] Alkaline 225 (H) 40 - 129 U/L [facility] phosphatase [facility] AST 18 10 - 50 U/L [facility] ALT 14 5 - 50 U/L [facility] Total bilirubin 0.4 0.0 - 1.2 mg/dL [facility] Specimen Blood Performing Organization Address City/State/ZIP Code P kelly Number [facility] [address] [place] [address] PATHOLOGY AND GENOMIC MEDICINE [address] * ECG ED Preliminary Interpretation - Not an Order (04/19/2020 5:13 PM CDT) Narrative Performed At Farshad Escalante MD 0 9:18 AM ECG ED Preliminary Interpretation - Not an Order Performed by: Farshad Escalante MD Authorized by: Farshad Escalante MD ECG reviewed by ED Physician in the abs ence of a telecommunications professional: yes Interpretation: Interpretation: abnormal Rate: ECG rate: 104 ECG rate assessment: tachycardic Rhythm: Rhythm: sinus tachycardia Ectopy: Ectopy: none QRS: QRS axis: Normal QRS intervals: Normal Conduction: Conduction: abnormal Abnormal conduction: LAFB ST segments: ST segments: Normal T waves: T waves: normal * CRITICAL CARE (04/19/2020 5:13 PM CDT) Narrative Performed At Farshad Escalante MD 0 9:18 AM Critical Care Performed by: Ofe Lemus P A Authorized by: Farshad Escalante MD Critical care provider statement: Critical care time (minutes): 35 Critical care time was exclusive of: Separately billable procedures and treating other patients Critical care was necessary to treat or prevent imminent or life-threatening deterioration of the f ollowing conditions: Sepsis Critical care was time spent personal ly by me on the following activities: Blood draw for specimens, development of treatment plan with patient or surrogate, discussions with primary provider, evaluation of patient's response to treatment, discus sions with consultants, examination of patient, review of old charts, pulse oximetry, re-evaluation of patient's condition, ordering and revie w of laboratory studies, ordering and review of radiographic studies and ordering and performing treatments and interventions Gurvinder 'yes' if you are taking over cri tical care for this patient from another provider.: no * ECG 12 lead (04/19/2020 5:07 PM CDT) Ventricular 104 [facility] rate Atrial rate 104 [facility] HI interval 166 [facility] QRSD interval 106 [facility] QT interval 334 [facility] QTC interval 439 [facility] P axis 1 47 [facility] QRS axis 1 -62 [facility] T wave axis 65 [facility] EKG impression Sinus tachycardia-Left [facility] anterior fascicular block-Abnormal ECG-In automated comparison with ECG of 19-APR-2020 16:17,-Left anterior fascicular block is now present- Specimen Narrative Performed At This result has an attachment that is n ot available. Performing Organization Address City/State/ZIP Code P kelly Number [facility] [address] [place] [address] * ECG Pre/Post Op (04/19/2020 4:17 PM CDT) Ventricular 93 [facility] rate Atrial rate 93 [facility] HI interval 164 [facility] QRSD interval 108 [facility] QT interval 350 [facility] QTC interval 435 [facility] P axis 1 66 [facility] QRS axis 1 -6 [facility] T wave axis 62 [facility] EKG impression Normal sinus rhythm-Incomplete [facility] MU SE left bundle branch block-Borderline ECG-No previous ECGs available- Specimen Narrative Performed At This result has an attachment that is n ot available. Performing Organization Address City/State/ZIP Code P kelly Number [facility] [address] [place] [address] * Hemoglobin A1c (04/19/2020 3:18 PM CDT) Hemoglobin A1C 11.1 (H) 4.0 - 5.6 % [facility] Comment: CONFUCIANISM HbA1c cutoffs for diagnosing HOSPITAL diabetes: 4.0% - 5.6% = normal 5.7% - 6.4% = increased risk for diabetes (prediabetes)9 >=6.5% = diabetes9 Goals for glycemic control (ADA 2016) < 7.0% Target for non adults with diabetes. More or less stringent targets may be appropriate for individual patients. <7.5% Target for Children and adolescents with type 1 diabetes. Specimen Blood Performing Organization Address City/State/ZIP Code P kelly Number [facility] [address] [place] [address] PATHOLOGY AND GENOMIC MEDICINE [facility] CONFUCIANISM [address] [place] [address] HOSPITAL after 08/14/2019 Insurance Type Payer Benefit Subscriber ID Effective Phone Address Plan / Dates Group HMO/PPO [facility] [id number] 2019-P THCARE resent CHOICE/CHO ICE + Advance Directives For more information, please contact: [phone] Patient Dye Weigher Explanation Type Date Recorded VERBAL Advance Directives, 04/19/2020 8:57 PM Living Will and Medical Power of Chef French
--- OUTSIDE RECORDS SUMMARY | 2020-08-14 20:53 | XMS REPORT | Continuity of Care Document ---
Author Author [facility] t Organization Formerly [facility] Address [address] [place] [address] Phone Unavailable Care Team Providers Care Relish Maker Name Role Phone Dawood EDMONDSON, Fabio Cardenas PCP [phone] Ava EDMONDSON, [facility] Attphys Catrachita EDMONDSON, Edgardo Attphys Ava EDMONDSON, Sveta Cain Attphys Austin EDMONDSON, [facility] Att[facility] Raymundo Ureña DO Attphys Vinnie Holland APRN Attphys Dilia EDMONDSON, oJi Sutton Attphys EDGARDO MORALES Admphys Unavailable Payers Payer Name Policy Type Policy Number Effective Date Expiration Date S kaiden [facility] CHOICE/CHOICE [id number] 2018-PresentHMO/ PPO [id number] 2019 00:00:00 Pk Cain Problems Condition Name Condition Details Condition Category Status Onset Date Resolution Date Last Treatment Date Treating Clinician Comments Source Prostatocystitis Prostatocystitis Disease Active 2020-04-19 00:00:00 Pk Cain Allergies, Adverse Reactions, Alerts Allergy Name Allergy Type Status Severity Reaction(s) Onset Date Inacti ve Date Treating Clinician Comments Source No Known Allergies DA Active U 2019-09-11 00:00:00 [facility] Social History Social Habit Start Date Stop Date Quantity Comments Source Sex Assigned At Sujatha shaikh Islam Tobacco use and exposure 2020-04-26 00:00:00 2020-04-26 00:00:00 Ida appiah used Pk Cain Alcohol intake 2020-04-26 00:00:00 2020-04-26 00:00:00 Ex-drinker (fi nding) Pk Cain Smoking Status Start Date Stop Date Source Never smoker Pk Vinson t Medications Ordered Medication Name Filled Medication Name Start Date Stop Da te Current Medication? Ordering Clinician Indication Dosage Frequency Signature (SIG) Comments Components Source lisinopriL (PRINIVIL) 40 mg tablet 2020-04-28 00:00:00 Yes 40mg QD Take 1 tablet (40 mg total) by mouth daily. Gabriela Cain lisinopriL (PRINIVIL) 10 mg tablet 2020-04-27 13:31:23 202 00:00:00 No 10mg QD Take 10 mg by mouth every morning. Pk Cain tamsulosin (FLOMAX) 0.4 mg capsule 2020-04-27 13:31:18 Yes .4mg QD Take 0.4 mg by mouth every morning. Pk Nice ethodi hydroCHLOROthiazide (HYDRODIURIL) 25 MG tablet 2020-04-27 13:31: 18 Yes 25mg QD Take 25 mg by mouth every morning. Pk Cain insulin 70/30 NPH and regular human (Hum uLIN 70/30) 100 unit/mL (70-30) injection 2020-04-27 13:31:18 Yes 30U Q. 5D Inject 30 Units under the skin 2 (two) times a day. Breakfast and at night Pk Cain Vital Signs Vital Name Observation Time Observation Value Comments Source Systolic blood pressure 2020-04-27 11:22:06 180 mm[Hg] Pk Cain Diastolic blood pressure 2020-04-27 11:22:06 89 mm[Hg] Pk Cain Heart rate 2020-04-27 11:22:06 76 /min Pk Cain Body temperature 2020-04-27 11:22:06 36.78 Becka Hous ton Islam Respiratory rate 2020-04-27 11:22:06 18 /min Mili murphy Islam Oxygen saturation in Arterial blood by Pulse oximetry 04-27 11:22:06 95 /min Pk Islam Body weight 2020-04-25 08:23:00 77.565 kg Pk Cain BMI 2020-04-25 08:23:00 24.54 kg/m2 Pk Cain Body height 2020-04-24 06:46:00 177.8 cm Pk Cain Procedures Procedure Date / Time Performed Performing Clinician Sourc e POC GLUCOSE 2020-04-27 11:22:00 Coni Avilaist POC GLUCOSE 2020-04-27 07:40:00 Coni Avila HC COMPLETE BLD COUNT W/AUTO DIFF 2020-04-27 04:36:00 Franchesca Escalante BASIC METABOLIC PANEL 2020-04-27 04:00:00 Su Escalante Islam ESTIMATED GFR 2020-04-27 04:00:00 Su Escalante Meth odist POC GLUCOSE 2020-04-26 20:59:00 Coni Avilaist POC GLUCOSE 2020-04-26 17:09:00 Coni Avila Islam POC GLUCOSE 2020-04-26 11:05:00 Coni Avila Islam POC GLUCOSE 2020-04-26 07:23:00 Coni Avila Islam BASIC METABOLIC PANEL 2020-04-26 03:20:00 Coni Avila Islam HC COMPLETE BLD COUNT W/AUTO DIFF 2020-04-26 03:20:00 Zehra Avila ESTIMATED GFR 2020-04-26 03:20:00 Coni Avila POC GLUCOSE 2020-04-25 21:26:00 Coni Avila VANCOMYCIN LEVEL, TROUGH 2020-04-25 17:30:00 Herb Roldan Islam POC GLUCOSE 2020-04-25 16:23:00 Coni Avila POC GLUCOSE 2020-04-25 11:20:00 Lock, Coni Cain POC GLUCOSE 2020-04-25 07:33:00 Lock, Coni HuRenataChetan Pk Cain POC GLUCOSE 2020-04-25 05:40:00 Lock, Coni HuRenataChetan Pk Cain BASIC METABOLIC PANEL 2020-04-25 04:35:00 Lock, Coni montemayor Islam ESTIMATED GFR 2020-04-25 04:35:00 Lock, Coni SparkleChetan Pk Cain CBC WITH PLATELET AND DIFFERENTIAL 2020-04-25 04:15:00 Lock, Lazaro fish Ramya Cain POC GLUCOSE 2020-04-25 02:09:00 Lock, Coni Ramya Cain POC GLUCOSE 2020-04-24 21:04:00 Lock, Coni SparkleChetan Pk Cain POC GLUCOSE 2020-04-24 16:16:00 Lock, Coni HuRenataChetan Pk Cain POC GLUCOSE 2020-04-24 11:14:00 Coni Avila URINE CULTURE 2020-04-24 11:05:00 Herman Cortez Mi thodist POC GLUCOSE 2020-04-24 09:48:00 Coni Avila ANAEROBIC CULTURE 2020-04-24 09:13:00 Herman Cortez FUNGUS CULTURE 2020-04-24 09:13:00 Herman Cortez Mi thodist AEROBIC CULTURE 2020-04-24 09:13:00 Herman Cortez Mi thodist AFB CULTURE 2020-04-24 09:13:00 Herman Cortez Me thodist GRAM STAIN 2020-04-24 09:13:00 Herman Cortez Me thodist AFB STAIN 2020-04-24 09:13:00 Herman Cortez Mi thodist ANAEROBIC CULTURE 2020-04-24 09:00:00 Herman Cortez ANESTHESIA INTUBATION 2020-04-24 08:16:47 Macy Dejesus CYSTO, SALINE TURP (BIPOLAR) 2020-04-24 07:57:00 Herman Cortez BASIC METABOLIC PANEL 2020-04-24 03:55:00 LockConi sim Islam HC COMPLETE BLD COUNT W/AUTO DIFF 2020-04-24 03:55:00 Zehra Avila Islam ESTIMATED GFR 2020-04-24 03:55:00 LockConi [place] Islam POC GLUCOSE 2020-04-23 21:01:00 LockConi [place] Islam POC GLUCOSE 2020-04-23 17:13:00 LockConi [place] Islam POC GLUCOSE 2020-04-23 12:17:00 LockConi [place] Islam POC GLUCOSE 2020-04-23 08:07:00 LockConi Islam BASIC METABOLIC PANEL 2020-04-23 04:00:00 LockConi sim Islam ESTIMATED GFR 2020-04-23 04:00:00 AustinConi Pk Gonzalezist HC COMPLETE BLD COUNT W/AUTO DIFF 2020-04-23 03:30:00 Zehra Avila Islam POC GLUCOSE 2020-04-22 21:29:00 LockConi [place] Islam POC GLUCOSE 2020-04-22 17:20:00 LockConi [place] Islam POC GLUCOSE 2020-04-22 12:49:00 LockConi [place] Islam POC GLUCOSE 2020-04-22 08:42:00 LockConi Pk Cain BASIC METABOLIC PANEL 2020-04-22 04:30:00 LockConi sim Islam HC COMPLETE BLD COUNT W/AUTO DIFF 2020-04-22 04:30:00 LockZehra [place] Islam VANCOMYCIN LEVEL, TROUGH 2020-04-22 04:30:00 Edgardo Morales Islam ESTIMATED GFR 2020-04-22 04:30:00 Edgardo Moralesist POC GLUCOSE 2020-04-21 20:56:00 Lock Coni VillagranChetan Pk Islam POC GLUCOSE 2020-04-21 17:29:00 Lock, Coni [place] Islam POC GLUCOSE 2020-04-21 12:36:00 Coni Avila Islam POC GLUCOSE 2020-04-21 07:11:00 Coni Avila Islam BASIC METABOLIC PANEL 2020-04-21 04:00:00 Coni Avila Islam HC COMPLETE BLD COUNT W/AUTO DIFF 2020-04-21 04:00:00 AustinZehra Islam ESTIMATED GFR 2020-04-21 04:00:00 Coni Avila Islam POC GLUCOSE 2020-04-20 20:56:00 LockConi Islam POC GLUCOSE 2020-04-20 17:27:00 Coni Avila Islam POC GLUCOSE 2020-04-20 12:55:00 Coni Avila Islam US RENAL 2020-04-20 09:40:00 Erasmo Gutiérrez [facility] Islam POC GLUCOSE 2020-04-20 07:45:00 Coni Avila Islam SODIUM LEVEL, URINE, RANDOM 2020-04-20 05:15:00 Erasmo Gutiérrez Islam CREATININE LEVEL, URINE, RANDOM 2020-04-20 05:15:00 Magnus Gutiérrez Islam OSMOLALITY, URINE 2020-04-20 05:15:00 Erasmo Gutiérrez Islam HC COMPLETE BLD COUNT W/AUTO DIFF 2020-04-20 05:15:00 Tex Morales Islam BASIC METABOLIC PANEL 2020-04-20 05:15:00 Edgardo Morales Islam MAGNESIUM LEVEL 2020-04-20 05:15:00 Edgardo Morales Met hodist LACTIC ACID LEVEL 2020-04-20 05:15:00 Edgardo Morales ethodist HIV AG/AB COMBINATION 2020-04-20 05:15:00 Edgardo Morales Islam ESTIMATED GFR 2020-04-20 05:15:00 Edgardo Morales Met hodist POC GLUCOSE 2020-04-20 05:12:00 Edgardo Morales hodist TROPONIN 2020-04-19 23:40:00 Ofe Lemus on Islam LACTIC ACID LEVEL, SEPSIS - NOW AND REPEAT 2X EVERY 3 HOURS 2020-04-19 23:40:00 Ofe Lemus COVID-19 QUALITATIVE PCR 2020-04-19 21:35:00 Ofe Lemus TROPONIN 2020-04-19 21:26:00 Ofe Lemus on Islam LACTIC ACID LEVEL, SEPSIS - NOW AND REPEAT 2X EVERY 3 HOURS 2020-04-19 21:26:00 Ofe Lemus URINE CULTURE 2020-04-19 19:34:00 Ofe Lemus on Islam URINALYSIS SCREEN AND MICROSCOPY, WITH REFLEX TO CULTURE 202 19:20:[address] ANGIOGRAM PE CHEST 2020-04-19 19:16:[address] ABDOMEN PELVIS W CONTRAST 2020-04-19 19:16:07 Ofe Lemus VENOUS BLOOD GAS 2020-04-19 18:35:00 Ofe Lemus Islam BETA HYDROXYBUTYRATE 2020-04-19 18:30:00 Ofe Lemus BLOOD CULTURE, AEROBIC & ANAEROBIC 2020-04-19 17:30:00 Jonathan Lemus HC COMPLETE BLD COUNT W/AUTO DIFF 2020-04-19 17:30:00 Eren Lemus PROTHROMBIN TIME WITH INR 2020-04-19 17:30:00 Ofe Lemus PARTIAL THROMBOPLASTIN TIME (PTT) 2020-04-19 17:30:00 Eren Lemus COMPREHENSIVE METABOLIC PANEL 2020-04-19 17:30:00 Desmond Lemus CREATINE KINASE, TOTAL (CPK) 2020-04-19 17:30:00 Ofe Lemusist TROPONIN 2020-04-19 17:30:00 Ofe Lemus on Islam B NATRIURETIC PEPTIDE 2020-04-19 17:30:00 Ofe Lemusist ESTIMATED GFR 2020-04-19 17:30:00 Ofe Lemus on Islam LACTIC ACID LEVEL 2020-04-19 17:30:00 Ofe Lemus stotiffany Islam BLOOD CULTURE, AEROBIC & ANAEROBIC 2020-04-19 17:25:00 Jonathan Lemus Islam [place] CRITICAL CARE, E/M 30-74 MINUTES 2020-04-19 17:13:36 Ofe Lemus ECG ED PRELIMINARY INTERPRETATION 2020-04-19 17:13:36 Christopher Escalante oc-Svetlana Svetlana Pk Islam ECG 12-LEAD 2020-04-19 17:07:37 Ofe Lemus on Islam COVID-19 QUALITATIVE PCR 2020-04-19 16:31:00 Herman Cortez Islam ECG PRE/POST OP 2020-04-19 16:17:37 Vinnie Holland Met hodangelia HEMOGLOBIN A1C 2020-04-19 15:18:00 Vinnie Holland Met hodist COMPREHENSIVE METABOLIC PANEL 2020-04-19 15:18:00 Roxy Holland HC COMPLETE BLD COUNT W/AUTO DIFF 2020-04-19 15:18:00 Vero Hollandist ESTIMATED GFR 2020-04-19 15:18:00 Vinnie Holland Met hodangelia Plan of Care Planned Activity Planned Date Details Comments Source Future Scheduled Test 2020-05-04 00:00:00 INFLUENZA VACCINE [code = INFLUENZA VACCINE] Pk Cain Future Scheduled Test 2007 00:00:00 COLONOSCOPY SCREEN ING [code = COLONOSCOPY SCREENING] Pk Cain Future Scheduled Test 2007 00:00:00 SHINGLES VACCINES (#1) [code = SHINGLES VACCINES (#1)] Pk Cain Encounters Start Date/Time End Date/Time Encounter Type Admission Type [facility] Care Department Encounter ID Source 2020-04-19 00:00:00 2020-04-27 00:00:00 Inpatient CONI AVILA [facility] [id number] Pk Cain 2020-04-19 00:00:00 2020-04-19 00:00:00 Outpatient HARSHAD CORTEZ [facility] [id number] Pk Cain Results Test Description Test Time Test Comments Results Result Comments Source AFB culture 2020-06-05 12:13:10 Test Item AFB culture isolate (test code = 543-9) No growth after 6 we eks of incubation. Specimen InformationSpecimen Source: AbscessSpecimen Site: Prostate: drainage Pk GonzalezistFungus [id number] 12:15:08* Test Item Value Reference Range Interpretation Comments Fungus culture isolate (test code = 1441) No growth af ter 4 weeks of incubation. Specimen Information Specimen Source: AbscessSpecimen Site: Prostate: drainage [place] MethodistAnaerobic [id number] 07:51:29* Test Item Value Reference Range Interpretation Comments Anaerobic culture isolate (test code = 552) No anaerobic organis ms isolated. Specimen InformationSpecimen Source: Abs cessSpecimen Site: Prostate: drainage [place] [facility] [id number] 11:23:25* Test Item Value Reference Range Interpretation Comments POC glucose (test code = 20172-4) 204 mg/dL 65-99 H Operations Superintendent Name: Morteza May ID: [id number]: [facility] Notified lead engineer Interpretation (test code = 31074-0) Abnormal [place] [facility] [id number] 05:21:38* Test Item Value Reference Range Interpretation Comments Sodium (test code = 2951-2) 145 135- 148 mEq/L Potassium (test code = 2823-3) 3.6 3.5- 5.0 mEq/L Chloride (test code = 2075-0) 107 98- 112 mEq/L CO2 (test code = 8-9) 27 24- 31 mEq/L Anion gap (test code = 84700-3) 11@ANIO 7- 15 mEq/L BUN (test code = 3094-0) 12 mg/dL 8-23 Creatinine (test code = 2160-0) 1.13 mg/dL 0.7-1.2 Glucose (test code = 2345-7) 117 mg/dL 65-99 H Calcium (test code = 91053-3) 9.1 mg/dL 8.8-10.2 Lab Interpretation (test code = 77580-8) Abnormal [place] MethodistEstimated [id number] 05:21:38* Test Item Value Reference Range Interpretation Comments Estimated GFR (test code = 5488) 69 mL/min/1.73 m2 Catergory Units InterpretationG1 >=90 Normal or highG2 60-89 Mildly kblghrhzsU5s 45-59 Mildly to moderately lywknfwkmR9a 30-44 Moderately to severely decreasedG4 15-29 Severely decreasedG5 <15 Kidney failureThe eGFR was calculated using the Chronic Kidney Disease Epidemiology Collaboration (CKD-EPI) equation. Interpretation is based on recommendations of the National Kidney Foundation-Kidney Disease Outcomes Quality Initiative (NKF-KDOQI) published in 2014. [place] MethodistCBC with platelet and [id number] 04:52:25* Test Item Value Reference Range Interpretation Comments WBC (test code = 81164-5) 9.93 4.50- 11.00 k/uL RBC (test code = 06172-4) 3.43 m/uL 4.4-6 L HGB (test code = 718-7) 8.4 g/dL 14-18 L HCT (test code = 4544-3) 27.4 % 41-51 L MCV (test code = 787-2) 79.9 fL 82-100 L MCH (test code = 785-6) 24.5 pg 27-34 L MCHC (test code = 786-4) 30.7 g/dL 31-37 L RDW - SD (test code = 34894-5) 39.2 fL 37-55 MPV (test code = 02282-8) 8.9 fL 8.8-13.2 Platelet count (test code = 26976-3) 238 150- 400 k/uL Nucleated RBC (test code = 35759-6) 0.00 /100 WBC Neutrophils (test code = 60917-4) 65.5 % 39-69 Lymphocytes (test code = 12739-9) 19.4 % 25-45 L Monocytes (test code = 60791-7) 10.1 % 0-10 H Eosinophils (test code = 81759-1) 3.1 % 0-5 Basophils (test code = 56347-0) 0.4 % 0-1 Immature granulocytes (test code = 71564-4) 1.5 % 0-1 H "Immature granulocytes" (promyelocytes, myelocytes, metamyelocytes) Lab Interpretation (test code = 72734-2) Abnormal [place] MethodistAFB [id number] 12:13:32* Test Item Value Reference Range Interpretation Comments AFB stain (test code = 676-7) No acid fast bacilli (AFB) seen. Specimen InformationSpecimen Source: AbscessSpecimen Site: Prostate: drainage [place] MethodistFungus [id number] 12:13:32* Test Item Value Reference Range Interpretation Comments Fungus smear (test code = 1443) No fungi observed. Specimen InformationSpecimen Source: AbscessSpecimen Site: Prostate: drainage [place] MethodistGram [id number] 12:13:32Gram stain isolateOccasional WBC'sModerate Gram positive cocci in pairsModerate Gram positive cocci in clusters Comment: Specimen InformationSpecimen Source: AbscessSpecimen Site: Prostate: [facility] MethodistVancomycin level, [id number] 19:05:29* Test Item Value Reference Range Interpretation Comments Vancomycin, trough (test code = 14733-1) 14.1 ug/mL 10-20 Therapeutic Ranges: Peak 30.0 - 40.0 ug/mL Trough 10.0 - 20.0 ug/mL [facility], aerobic & [id number] 20:33:05* Test Item Value Reference Range Interpretation Comments Blood culture isolate (test code = 600-7) No growth after 5 days of incubation. Specimen InformationSpecimen Source: BloodSpecimen Site: Forearm, right [place] [id number] 08:16:47Macy Dejesus CRNA 04/24/2020 8:17 AMAirwayPerformed by: Macy Dejesus CRNAAuthorized by: Raymundo Ureña, Location: ORResident/ROSHNI/AA: Macy Dejesus CRNAPreoxygenated with 100% O2: Yes C-spine Precautions Maintained Throughout: Yes Mask Ventilation: Not attemptedFinal Airway Type: Endotracheal airwayFinal Endotracheal Airway: ETTTechnique Used: Direct laryngoscopyBlade Type: MillerLaryngoscope Blade/Videolaryngoscope Blade Size: 2ETT Size (mm): 8.0Measured from: LipsETT to Lips (cm): 23Placement Verified by: CO2 detection, direct visualization and equal breath sounds Laryngoscopic view: Grade I - full view of glottisNumber of Attempts at Approach: 1 ANterior- EZ OETT, no problems, teeth and mouth protected and unchanged.Pk Norman 12 [id number] 17:46:30* Test Item Value Reference Range Interpretation Comments Ventricular rate (test code = 253) 104 Atrial rate (test code = 255) 104 TX interval (test code = 266) 166 QRSD interval (test code = 260) 106 QT interval (test code = 264) 334 QTC interval (test code = 265) 439 P axis 1 (test code = 267) 47 QRS axis 1 (test code = 268) -62 T wave axis (test code = 270) 65 EKG impression (test code = 273) Sinus tachycardia-Lef t anterior fascicular block-Abnormal ECG-In automated comparison with ECG of 19-APR-2020 16:17,-Left anterior fascicular block is now present- Pk Norman Pre/Post [id number] 17:45:54* Test Item Value Reference Range Interpretation Comments Ventricular rate (test code = 253) 93 Atrial rate (test code = 255) 93 TX interval (test code = 266) 164 QRSD interval (test code = 260) 108 QT interval (test code = 264) 350 QTC interval (test code = 265) 435 P axis 1 (test code = 267) 66 QRS axis 1 (test code = 268) -6 T wave axis (test code = 270) 62 EKG impression (test code = 273) Normal sinus rhythm-I ncomplete left bundle branch block-Borderline ECG-No previous ECGs available- Pk Olson [id number] 11:31:38 Interface, Radiology Results 04/20/2020 11:34 AM CDTEXAMINATION: US RENALCLINICAL HISTORY: acute renal failureCOMPARISON: CT abdomen and pelvis performed April 19, 2020.IMPRESSION:1.No hydronephrosis.2.Normal renal size and e chogenicity.3.Diffuse bladder wall thickening may be due detrussor muscle hypert rophy from chronic outlet obstruction or secondary to inflammatory or infectious cystitis.FINDINGS:RIGHT KIDNEY:*Position and Orientation: Normal.*Renal Cortical Echogenicity: Normal.*Size: 10.5 x 6.2 x 4.7 cm.*Cyst: 3.6 cm cyst of the ant erior lower pole.*Mass: None.*Calculus: None.*Hydronephrosis: None.LEFT KIDNEY:* Position and Orientation: Normal.*Renal Cortical Echogenicity: Normal.*Size: 10 .2 x 6.8 x 5.8 cm.*Cyst: None.*Mass: None.*Calculus: None.*Hydronephrosis: None. BLADDER: Urinary bladder wall is diffusely thickened, and the lumen is decompres sed by a Plummer.[id number] MethodistCOVID-19 qualitative [id number] 11:27:08* Test Item Value Reference Range Interpretation Comments Interpretation (test code = 7469326) Negative results do not preclude 2019-nCoV infection and should not be used as the sole basis for treatment or other patient management decisions. Negative results must be combined with clinical observations, patient history, and epidemiological information. COVID-19 qualitative PCR result (test code = 18709-9) Not-Detect ed Not-Detected COVID-19 qualitative PCR (test code = 7070) See link below for P DF Lab Report [place] MethodistOsmolality, [id number] 10:17:36* Test Item Value Reference Range Interpretation Comments Osmolality, urine (test code = 2695-5) 408 50- 1,400 mOsm/ kg [place] MethodistCreatinine level, urine, [id number] 10:04:56* Test Item Value Reference Range Interpretation Comments Creatinine, urine, random (test code = 96569-0) 52 mg/dL [place] MethodistSodium level, urine, [id number] 10:04:56* Test Item Value Reference Range Interpretation Comments Sodium, urine, random (test code = 88182-5) 99 mEq/L [place] MethodistHIV Ag/Ab [id number] 07:41:46* Test Item Value Reference Range Interpretation Comments HIV Ag/Ab combination (test code = 5299) Non-reactive Non-reactive [place] MethodistMagnesium [id number] 07:08:33* Test Item Value Reference Range Interpretation Comments Magnesium (test code = 10573-2) 1.9 mg/dL 1.6-2.4 [place] MethodistLactic acid [id number] 06:49:00* Test Item Value Reference Range Interpretation Comments Lactic acid (test code = 15497-4) 1.6 mmol/L 0.5-2.2 [place] MethodistUrinalysis screen and microscopy, with reflex to culture 2020-04-20 04:19:41* Test Item Value Reference Range Interpretation Comments Specimen site (test code = 8857919) Clean catch Color, UA (test code = 5778-6) Yellow Appearance, UA (test code = 5767-9) Hazy Specific gravity, UA (test code = 5811-5) 1.026 1.001-1.035 pH, UA (test code = 5803-2) 6.0 5.0-8.5 Protein, UA (test code = 88143-0) 2+ Negative A Glucose, UA (test code = 32043-9) 3+ Negative A Ketones, UA (test code = 2514-8) Negative Negative Bilirubin, UA (test code = 5770-3) Negative Negative Blood, UA (test code = 5794-3) Negative Negative Nitrite, UA (test code = 5802-4) Negative Negative Urobilinogen, UA (test code = 02811-5) <2.0 <2.0 Leukocyte esterase, UA (test code = 5799-2) Trace Negative A WBC, UA (test code = 5821-4) 9 0- 1 /HPF H RBC, UA (test code = 58378-8) 3 0- 5 /HPF Bacteria, UA (test code = 66390-9) Few None seen WBC clumps, UA (test code = 22029-2) Few A Yeast, UA (test code = 49425-0) None seen Yeast with pseudohyphae, UA (test code = 22210-2) None seen Hyaline casts, UA (test code = 5796-8) /[facility] Lab Interpretation (test code = 06832-3) Abnormal [place] [id number] 00:42:04* Test Item Value Reference Range Interpretation Comments Troponin (test code = 44099-7) <0.006 0-0.04 In patients suspected of having a myocardial infarction, along with all other appropriate clinical measures and actions including ECG and other diagnostics as appropriate, measure Ultra TnI at 0 hrs and at 3 hrs.Myocardial infarction VERY LIKELYThe 0 hr TnI level is > 0.10 ng/mL Parag cardial infarction LIKELYThe 0 hr TnI level is > 0.04 ng/mL and 3 hr level is increased or decreased by at least 0.020 ng/mL Myocardi al infarction VERY UNLIKELYBoth the 0 hr and 3 hr TnI levels <= 0.04 ng/mL(within normal limits) OR 0 hr is > 0.04 ng/mL and 3 hr is increased OR decreased by less than 0.020 ng/mL [place] MethodistLactic acid level, SEPSIS - Now and repeat 2x every 3 hours 2020-04-20 00:28:15* Test Item Value Reference Range Interpretation Comments Lactic acid (test code = 37553-4) 1.6 mmol/L 0.5-2.2 [place] MethodistHemoglobin [id number] 20:23:36* Test Item Value Reference Range Interpretation Comments Hemoglobin A1C (test code = 63777-3) 11.1 % 4-5.6 H HbA1c cutoffs for diagnosing diabetes:4.0% - 5.6% = normal5.7% - 6.4% = increased risk for diabetes (prediabetes)9>=6.5% = [id number] for glycemic control (ADA 2016)< 7.0% Target for non adults with diabetes. More or less stringent targets may be appropriate for individual patients. <7.5% Target for Children and adolescents with type 1 diabetes. Lab Interpretation (test code = 11840-9) Abnormal [place] MethodistCT Abdomen Pelvis W [id number] 19:29:36Hm Interface, Radiology Results 04/19/2020 7:32 PM CDTEXAMINATION: CT ABDOMEN PELVIS W CONTRASTCLINICAL HISTORY: lower abd painTECHNIQUE: Multiple axial images of the abdomen and pelvis were obtained following intravenous admi nistration of iodinated contrast. Sagittal and coronal computerized reformatted images were also obtained.. All CT images were acquired using radiation dose lo wering technique with automated exposure control and / or iterative reconstructi on.COMPARISON: NoIMPRESSION:ABDOMEN:1. Volume loss and scarring in the lateral segment of the middle lobe. Minimal bibasilar scarring elsewhere. Lung bases oth erwise clear.2.The appendix is thickened, measuring 10 mm transverse, though the re is no adjacent inflammation to indicate acute appendicitis. No discrete appen diceal mass is identified. A six-month follow-up is advised to exclude the possi bility of an early appendiceal neoplasm.3.Bowel loops show no evidence of obstru ction or acute inflammation, otherwise grossly unremarkable without enteric cont rast.4.Phrygian cap or tiny focus of adenomyomatosis at the gallbladder fundus w hich otherwise unremarkable.5.Liver, bile ducts, pancreas unremarkable. Spleen i s borderline enlarged without focal lesion.6.Adrenals, abdominal aorta and left kidney unremarkable. An exophytic 3 cm cyst in the lower pole right kidney. No h ydronephrosisPELVIS:1. Trace presacral stranding and free fluid. Upper normal ex ternal iliac lymph nodes and common iliac lymph nodes are likely reactive.2.The prostate is nearly entirely replaced by multifocal rim-enhancing fluid collectio ns, measuring up to 4.1 x 2.1 cm. The fluid collections extend caudally with bro ad abutment of the right levator ani, and infra-levator extension, to involve t he anterior margin of the external anal sphincter, and the right obturator inter nus3.The urinary bladder collapsed Plummer catheter demonstrates wall thickening a nd stranding, indicative of cystitis. Seminal vesicles are edematous.SUMMARY:Cys toprostatitis, with multifocal abscess collections replacing the prostate diffus marie, as well as involvement of the pelvic floor on the right, and infra-levator extension on the right, with abutment of the right obturator internus.Thickened appendix without evidence of acute appendicitis or discrete mass. A six-month fo llow-up is advised to ensure stability.Other incidental findings as [id number] _PS01[facility] Angiogram Pe [id number] 19:22:32Hm Interface, Radiology Results 04/19/2020 7:25 PM CDTEXAMINATION: CT ANGIOGRAM PE CHESTCLINICAL HISTORY: 64 years Male sob hypotenstion tachycardiaTECHNIQUE: Contrast enhanced multidetector-row chest computed tomography protocol. Computed tomographic angiographic images of the chest and upper abdomen were obtained during the uncomplicated intravenous administration of iodinated contrast utilizing a bolus-tracking technique centered on the main pulmonary artery and iterative reconstruction techniques and/or automated exposure control to reduce radiation dose. Computerized reformatted images and 3-D Coronal MIP images were created by a dedicated generation engineering technologist at the scanner and archived in PACS. COMPARISON: None available.FINDINGS:Study Quality: The examination for the d iagnosis of pulmonary embolism is adequate. Pulmonary arteries: *Normal without acute pulmonary embolism. *Normal main pulmonary trunk. Pulmonary Parenchyma and airways: *Patent central airways.*Faint tree-in-bud opacities with mild bronchi al thickening is noted within the right upper lung, nonspecific.*No suspicious p ulmonary nodule. Pleural spaces: No pleural effusion or pneumothorax.Cardiovascu lar: *The cardiac chambers are normal in size. *No pericardial abnormality is pr esent. *Multifocal mild atherosclerotic disease.Mediastinum and Mary: No mediast inal mass or enlarged lymph node. Osseous structures and Chest Wall: No acute or pathologic osseous or soft-tissue process is present. Lower Neck: No actionable thyroid nodule. Upper Abdomen: Please refer to the concurrently obtained but se parately dictated CT of the abdomen and pelvis for further evaluation of the upp er abdominal structures. Additional Findings: None.IMPRESSION:1.No acute pulmona ry embolism. 2.Nonspecific findings within the right upper lung which could repr esent mild chronic bronchitis/small vessel disease, clinical correlation recomme nded. No lobar consolidation.3.Please refer to the concurrently obtained but sep arately dictated CT the abdomen and pelvis for further evaluation.[id number] [facility] MethodistBeta [id number] 19:17:00* Test Item Value Reference Range Interpretation Comments Beta hydroxybutyrate (test code = 6873-4) 0.07 mmol/L 0.02-0.27 [facility] MethodistVenous blood [id number] 18:48:44* Test Item Value Reference Range Interpretation Comments pH, venous (test code = 2746-6) 7.35 7.32-7.42 pCO2, venous (test code = 2020-4) 48 45- 51 mmHg pO2, venous (test code = 2705-2) 28 25- 40 mmHg Base excess, venous (test code = 1927-3) 1 meq/L -2-2 O2 saturation, venous (test code = 2711-0) 54 % 40-70 Bicarbonate, venous (test code = 50108-1) 26.0 mmol/L 21-28 [facility] natriuretic [id number] 18:12:49* Test Item Value Reference Range Interpretation Comments BNP (test code = 37991-5) 11 pg/mL 0-100 [facility]Comprehensive metabolic [id number] 18:09:40* Test Item Value Reference Range Interpretation Comments Sodium (test code = 2951-2) 130 135- 148 mEq/L L Potassium (test code = 2823-3) 5.1 3.5- 5.0 mEq/L H Chloride (test code = 2075-0) 90 98- 112 mEq/L L CO2 (test code = 8-9) 23 24- 31 mEq/L L Anion gap (test code = 52324-1) 17@ANIO 7- 15 mEq/L H BUN (test code = 3094-0) 26 mg/dL 8-23 H Creatinine (test code = 2160-0) 1.41 mg/dL 0.7-1.2 H Glucose (test code = 2345-7) 380 mg/dL 65-99 H Calcium (test code = 51029-2) 10.5 mg/dL 8.8-10.2 H Protein (test code = 2885-2) 8.6 g/dL 6.3-8.3 H -Tensed 4.6- 7.0 g/dL1 week 4.4-7.6 g/dL7 months-1year 5.1-7.3 g/dL1-2 years 5.6-7.5 g/dL>3 years 6.0-8.0 g/rC86-238 6.3-8.3 g/dL Albumin (test code = 1751-7) 3.4 g/dL 3.5-5 L A/G ratio (test code = 1759-0) 0.7 0.7-3.8 Alkaline phosphatase (test code = 6768-6) 225 U/L 40-129 H AST (test code = 1920-8) 18 U/L 10-50 ALT (test code = 1742-6) 14 U/L 5-50 Total bilirubin (test code = 1975-2) 0.4 mg/dL 0-1.2 Lab Interpretation (test code = 74853-5) Abnormal [facility]Creatine kinase, total (CPK)2020-04-19 18:09:39* Test Item Value Reference Range Interpretation Comments Creatine kinase (test code = 2157-6) 25 U/L 39-308 L Lab Interpretation (test code = 58613-9) Abnormal [facility] MethodistPartial thromboplastin time, [id number] 17:55:45* Test Item Value Reference Range Interpretation Comments PTT (test code = 02760-7) 42.3 23.0- 36.0 sec H PTT therapeutic range for unfractionated heparin is61.0-112.0 seconds which corresponds to Anti-Xa0.3-0.7 U/ml. Lab Interpretation (test code = 42727-7) Abnormal [facility] MethodistProthrombin time with [id number] 17:54:54* Test Item Value Reference Range Interpretation Comments Prothrombin time (test code = 5902-2) 14.9 11.5- 14.5 sec H INR (test code = 71380-8) 1.2 Th e International Normalized Ratio (INR) is a therapeutic monitoring tool for patients who are stable on oral anticoagulant therapy. An INR of 2.0-3.0 is suggested for deep vein thrombosis/pulmonary embolism. Lab Interpretation (test code = 47302-4) Abnormal [facility] ED Preliminary Interpretation - Not an [id number] 17:13:36* Test Item Value Reference Range Interpretation Comments RIMA (test code = RIMA) Farshad Escalante MD 04/30/2020 9:18 [facility] [place] [facility] Interpretation - Not an OrderPerformed by: Farshad Escalante MDAuthorized by: Farshad Escalante MD ECG reviewed by ED Physician in the absence of a relief worker: yes Interpretation: Interpretation: abnormal Rate: ECG rate: 104 ECG rate assessment: tachycardic Rhythm: Rhythm: sinus tachycardia Ectopy: Ectopy: none QRS: QRS axis: Normal QRS intervals: NormalConduction: Conduction: abnormal Abnormal conduction: LAFB ST segments: ST segments: NormalT waves: T waves: normal Lab Interpretation (test code = 84776-6) Abnormal [facility] [id number] 17:13:36Farshad Escalante MD 04/30/2020 9:18 AMCritical CarePerformed by: Ofe Lemus PAAuthorized by: Farshad Escalante MD Critical care provider statement: Critical care time (minutes): 35 Critical care time was exclusive of: Separately billable procedures and treating other patients Critical care was necessary to treat or prevent imminent or life-threatening deterioration of the following conditions: Sepsis Critical care was time spent personally by me on the following activities: Blood draw for specimens, development of treatment plan with patient or surrogate, discussions with primary provider, evaluation of patient's response to treatment, discussions with consultants, examination of patient, review of old charts, pulse oximetry, re-evaluation of patient's c ondition, ordering and review of laboratory studies, ordering and review of radi ographic studies and ordering and performing treatments and interventions Gurvinder 'yes' if you are taking over critical care for this patient from another provide r.: no [place] MethodistURINALYSIS [id number] 02:00:00* Test Item Value Reference Range Interpretation Comments UA COLOR (test code = COLU) YELLOW YEL/STRAW UA APPEARANCE (test code = APPU) SL CLOUDY CLEAR UA GLUCOSE DIPSTICK (test code = DGLUU) 3+ NEGATIVE A UA BILIRUBIN DIPSTICK (test code = BILU) NEGATIVE NEGATIVE UA KETONE DIPSTICK (test code = KETU) TRACE NEGATIVE A UA SPECIFIC GRAVITY (test code = SGU) 1.022 1.005-1.030 N UA BLOOD DIPSTICK (test code = BRIANA) NEGATIVE NEGATIVE UA PH DIPSTICK (test code = WILLIAN) 6.0 5.0-7.0 N UA PROTEIN DIPSTICK (test code = PROU) NEGATIVE NEGATIVE UA UROBILINIOGEN DIPSTICK (test code = URO) 0.2 mg/dL 0.2-1.0 UA NITRITE DIPSTICK (test code = HUGH) NEGATIVE NEGATIVE UA LEUKOCYTE ESTERASE DIPSTICK (test code = LEUU) NEGATIVE NEGA TIVE UA RBC (test code = RBCU) 0-3 RBC/HPF 0-3 UA WBC NO REFLEX (test code = WBCUCL) 0-3 WBC/HPF 0-3 UA BACTERIA (test code = BACU) NONE SEEN /HPF NONE SEEN UA SQUAMOUS CELLS (test code = SQU) NONE SEEN /HPF NONE SEEN CBC W/AUTO [id number] 08:49:00* Test Item Value Reference Range Interpretation Comments WHITE BLOOD CELL (test code = WBC) 8.23 x10 3/uL 4.5-11.0 N RED BLOOD CELL (test code = RBC) 4.33 x10 6/uL 4.00-5.60 N HEMOGLOBIN (test code = HGB) 11.5 g/dL 12.5-16.9 L HEMATOCRIT (test code = HCT) 33.9 % 37.5-50.7 L MEAN CELL VOLUME (test code = MCV) 78.3 fL 81.0-99.0 L MEAN CELL HGB (test code = MCH) 26.6 pg 27.0-33.0 L MEAN CELL HGB CONCETRATION (test code = MCHC) 33.9 g/dL 33.0-37. 0 N RED CELL DISTRIBUTION WIDTH CV (test code = RDW) 12.9 % 11.5- 14.5 N RED CELL DISTRIBUTION WIDTH SD (test code = RDW-SD) 36.7 fL 37 .0-54.0 L PLATELET COUNT (test code = PLT) 220 x10 3/uL 150-400 N MEAN PLATELET VOLUME (test code = MPV) 10.5 fL 7.0-9.0 H NEUTROPHIL % (test code = NT%) 64.7 % 56.0-77.0 N IMMATURE GRANULOCYTE % (test code = IG%) 0.7 % 0.0-2.0 N LYMPHOCYTE % (test code = LY%) 19.2 % 14.0-32.0 N MONOCYTE % (test code = MO%) 10.4 % 4.8-9.0 H EOSINOPHIL % (test code = EO%) 4.3 % 0.3-3.7 H BASOPHIL % (test code = BA%) 0.7 % 0.0-2.0 N NUCLEATED RBC % (test code = NRBC%) 0.0 % 0-0 N NEUTROPHIL # (test code = NT#) 5.32 x10 3/uL 2.0-7.6 N IMMATURE GRANULOCYTE # (test code = IG#) 0.06 x10 3/uL 0.00-0.03 H LYMPHOCYTE # (test code = LY#) 1.58 x10 3/uL 1.0-3.8 N MONOCYTE # (test code = MO#) 0.86 x10 3/uL 0.1-0.8 H EOSINOPHIL # (test code = EO#) 0.35 x10 3/uL 0.0-0.2 H BASOPHIL # (test code = BA#) 0.06 x10 3/uL 0.0-0.2 N NUCLEATED RBC # (test code = NRBC#) 0.00 x10 3/uL 0.0-0.1 N MANUAL DIFF REQUIRED (test code = MDIFF) NO BASIC METABOLIC [id number] 08:04:00* Test Item Value Reference Range Interpretation Comments SODIUM (test code = NA) 137 mEq/L 134-147 N POTASSIUM (test code = K) 4.3 mEq/L 3.4-5.0 N CHLORIDE (test code = CL) 106 mEq/L 100-108 N CARBON DIOXIDE (test code = CO2) 23 mEq/L 21-33 N ANION GAP (test code = GAP) 12 0-20 N GLUCOSE (test code = GLU) 144 mg/dL 70-110 H BLOOD UREA NITROGEN (test code = BUN) 9 mg/dL 7-18 GLOMERULAR FILTRATION RATE (test code = GFR) 137.0 80-90 H Units of measure = ml/min/1.73 m2 CREATININE (test code = CREAT) 0.6 mg/dL 0.6-1.3 CALCIUM (test code = CA) 8.7 mg/dL 8.0-10.5 N [id number] 08:02:00* Test Item Value Reference Range Interpretation Comments GLUBED (test code = GLUBED) 142 MG/DL 70-110 H Performed by certified catalyst operator chief at [facility] [id number] 21:22:00* Test Item Value Reference Range Interpretation Comments GLUBED (test code = GLUBED) 185 MG/DL 70-110 H Performed by certified catalyst operator chief at [facility] [id number] 18:01:00* Test Item Value Reference Range Interpretation Comments GLUBED (test code = GLUBED) 160 MG/DL 70-110 H Performed by certified catalyst operator chief at [facility] - MRI UP EX W WO CONT [id number] 16:54:00 FAX: Cecil Gramajo MD [phone] [place]: St: ADM Name: SILVER DAVENPORT [facility] : [birth year] 60 Age/S: 63/M [address] [place] [address] Blvd Unit #: [id number] Loc: G.M127 [place] [address] Phys: Cecil Deleon MD Acct: [id number] Dis Date: Status: ADM IN PHONE #: [phone] Exam Date: 09/12/2019 1244 FAX #: [phone] Reason: LEFT HAND ULCER, CELLULITIIS, DM EXAMS: CPT CODE: [id number] [place] [address] MRI left hand with and without con trast. INDICATION: Left hand ulcer, cellulitis, diabetes. Sepsis. Dorsal left hand wound with pain and swelling. COMPARISON: None. TECHNIQUE: MRI of the hand is performed with triplanar T1 a nd fluid sensitive sequences. 17 mL gadolinium injected intravenously for the exam. FINDINGS: Motion artifact degrades image quality. Bones/joints: Small T1 hypointense T2 hyperintense degenerative c ysts and/or erosions in the lunate and triquetral bones is seen. Otherwis e normal T1 hyperintense marrow signal in the wrist and hand. No co ntusion, osteomyelitis, or acute fracture. No joint effusions or dislocat ions. Tendons: Small amount of tendon sheath fluid seen in the pro ximal extensor tendon sheaths appearing more prominent distally. No acute tendon tears are seen Muscles: Normal signal without edema or tears. Soft tissues: T1 hypointense T2 hyperintense heterogeneo us soft tissue changes of the subcutaneous fat are most notable in the leonel clarita hand. More focal heterogeneous soft tissue area is seen at the area o f the dorsal open wound at the proximal third metacarpal region which is n ot well-organized or demonstrate rim enhancement. No rim-enhancing drainable fluid collection is seen. Contrast: There is contrast en hancement of the dorsal hand edematous subcutaneous fatty tissues at the a latoya of the wound extending both proximally and distally from this area. IMPRESSION: 1. Dorsal hand soft tissue wound with underly ing changes of cellulitis without osteomyelitis or definite abscess. 2. Extensor tendon sheath fluid likely reactive in nature from inf ection. SL: SG-H PAGE 1 Signed Report (CONTINUED) FAX: Cecil Gramajo MD [phone] [place]: St: ADM Name: SILVER MONTOYA [facility] : 1955 Age/S: 63/M [address] [facility] Unit #: [id number] Loc: G.M127 [place] [address] Phys: Cecil Deleon MD Acct: [id number] Dis Date: Status: ADM IN PHONE #: [phone] Exam Date: 09/12/2019 1 244 FAX #: [phone] Reason: LEFT HAND ULCER, CELLULITI IS, DM EXAMS: CP T CODE: [id number] [place] [address] <Continued> at 5214 Reported and signed by: Alfredo Lindsey M.D. CC: Cecil Deleon MD Technologist: Otis Lemus, RT(R)(CT)(MR) Trnscrd Date/Time/By: 09/12/2019 (1653) : By: TawannaSG9 Orig Print D/T: S: 09/12/2019 (2926) PAGE 2 Signed Report [id number] 13:19:00* Test Item Value Reference Range Interpretation Comments GLUBED (test code = GLUBED) 160 MG/DL 70-110 H Performed by certified catalyst operator chief at [facility] [id number] 08:56:00* Test Item Value Reference Range Interpretation Comments GLUBED (test code = GLUBED) 151 MG/DL 70-110 H Performed by certified catalyst operator chief at [facility] LIPID PROFILE (CORONARY RISK)2019-09-12 08:14:00* Test Item Value Reference Range Interpretation Comments TRIGLYCERIDES (test code = TRIG) 149 mg/dL 40-150 N CHOLESTEROL (test code = CHOL) 155 mg/dL <200 CHOLESTEROL/HDL RATIO (test code = CHOLHDL) 5.00 RATIO 3.43-4.97 H RISK ASSOCIATED WITH CHOL/HDL RATIOS: RISK MALE FEMALE1/2 AVERAGE 3.43 3.27AVERAGE 4.97 4.442X AVERAGE 9.55 7.053X AVERAGE 23.39 11.04 NOTE THAT THE REFERENCE VALUE IS RELATEDTO RISK LEVELS RECOMMENDED BY THE NATL.HEART, LUNG, AND BLOOD INST. HDL CHOLESTEROL (test code = HDL) 31.0 mg/dL 32-72 L LIPOPROTEIN LDL (test code = LDL) 98 mg/dL 0-100 N <100 [id number] NEAR OPTIMAL/ABOVE [id number] HIGH>TA=337 VERY HIGH*Guidelines provided by the National Cholesterol EducationProgram Adult Treatment Panel III CBC W/AUTO [id number] 08:06:00* Test Item Value Reference Range Interpretation Comments WHITE BLOOD CELL (test code = WBC) 8.39 x10 3/uL 4.5-11.0 N RED BLOOD CELL (test code = RBC) 4.30 x10 6/uL 4.00-5.60 N HEMOGLOBIN (test code = HGB) 11.3 g/dL 12.5-16.9 L HEMATOCRIT (test code = HCT) 33.8 % 37.5-50.7 L MEAN CELL VOLUME (test code = MCV) 78.6 fL 81.0-99.0 L MEAN CELL HGB (test code = MCH) 26.3 pg 27.0-33.0 L MEAN CELL HGB CONCETRATION (test code = MCHC) 33.4 g/dL 33.0-37. 0 N RED CELL DISTRIBUTION WIDTH CV (test code = RDW) 13.1 % 11.5- 14.5 N RED CELL DISTRIBUTION WIDTH SD (test code = RDW-SD) 37.4 fL 37 .0-54.0 N PLATELET COUNT (test code = PLT) 197 x10 3/uL 150-400 N MEAN PLATELET VOLUME (test code = MPV) 10.9 fL 7.0-9.0 H NEUTROPHIL % (test code = NT%) 63.4 % 56.0-77.0 N IMMATURE GRANULOCYTE % (test code = IG%) 0.5 % 0.0-2.0 N LYMPHOCYTE % (test code = LY%) 23.1 % 14.0-32.0 N MONOCYTE % (test code = MO%) 8.6 % 4.8-9.0 N EOSINOPHIL % (test code = EO%) 3.9 % 0.3-3.7 H BASOPHIL % (test code = BA%) 0.5 % 0.0-2.0 N NUCLEATED RBC % (test code = NRBC%) 0.0 % 0-0 N NEUTROPHIL # (test code = NT#) 5.32 x10 3/uL 2.0-7.6 N IMMATURE GRANULOCYTE # (test code = IG#) 0.04 x10 3/uL 0.00-0.03 H LYMPHOCYTE # (test code = LY#) 1.94 x10 3/uL 1.0-3.8 N MONOCYTE # (test code = MO#) 0.72 x10 3/uL 0.1-0.8 N EOSINOPHIL # (test code = EO#) 0.33 x10 3/uL 0.0-0.2 H BASOPHIL # (test code = BA#) 0.04 x10 3/uL 0.0-0.2 N NUCLEATED RBC # (test code = NRBC#) 0.00 x10 3/uL 0.0-0.1 N MANUAL DIFF REQUIRED (test code = MDIFF) NO [id number] 22:22:00* Test Item Value Reference Range Interpretation Comments GLUBED (test code = GLUBED) 167 MG/DL 70-110 H Performed by certified catalyst operator chief at [facility] [id number] 17:02:00* Test Item Value Reference Range Interpretation Comments GLUBED (test code = GLUBED) 281 MG/DL 70-110 H Performed by certified catalyst operator chief at [facility] URINALYSIS [id number] 16:54:00* Test Item Value Reference Range Interpretation Comments UA COLOR (test code = COLU) YELLOW YEL/STRAW UA APPEARANCE (test code = APPU) CLEAR CLEAR UA GLUCOSE DIPSTICK (test code = DGLUU) 3+ NEGATIVE A UA BILIRUBIN DIPSTICK (test code = BILU) NEGATIVE NEGATIVE UA KETONE DIPSTICK (test code = KETU) TRACE NEGATIVE A UA SPECIFIC GRAVITY (test code = SGU) 1.031 1.005-1.030 H UA BLOOD DIPSTICK (test code = BRIANA) NEGATIVE NEGATIVE UA PH DIPSTICK (test code = WILLIAN) 5.0 5.0-7.0 N UA PROTEIN DIPSTICK (test code = PROU) NEGATIVE NEGATIVE UA UROBILINIOGEN DIPSTICK (test code = URO) 0.2 mg/dL 0.2-1.0 UA NITRITE DIPSTICK (test code = HUGH) NEGATIVE NEGATIVE UA LEUKOCYTE ESTERASE DIPSTICK (test code = LEUU) TRACE NEGA TIVE A UA RBC (test code = RBCU) 4-10 RBC/HPF 0-3 UA WBC NO REFLEX (test code = WBCUCL) 0-3 WBC/HPF 0-3 UA BACTERIA (test code = BACU) TRACE /HPF NONE SEEN UA SQUAMOUS CELLS (test code = SQU) 0-5 /HPF NONE SEEN UA SPERM (test code = SPERMU) TRACE /HPF NONE SEEN TSH REFLEX TO [id number] 15:50:00* Test Item Value Reference Range Interpretation Comments TSH REFLEX TO FT4 (test code = TSHREFLEX) 1.21 IU/mL 0.42-5.47 N HGBA1C%2019-09-11 15:47:00* Test Item Value Reference Range Interpretation Comments HGBA1C% (test code = HGBA1C%) 10.1 %A1C 4.8-6.0 H PROCALCITONIN (PCT)2019-09-11 09:47:00* Test Item Value Reference Range Interpretation Comments PROCALCITONIN (PCT) (test code = PROCAL) 0.08 ng/mL 0.00-0.05 H PROCALCITONIN (PCT) NORMAL RANGE (ADULT): <0.05 NG/ML. * a concentration <0.5 ng/mL represents a low risk of severe sepsis and/or septic shock.* a concentration >2 ng/mL represents a high risk of severe sepsis and/or septic shock.Nevertheless, concentrations <0.5 ng/mL do not exclude aninfection, on account of localized infections (withoutsystemic signs) which can be associated with such lowconcentrations, or a systemic infection in its initialstages (< 6 hours). Furthermore, increased procalcitonincan occur without infection. PCT concentrations between 0.5and 2.0 ng/mL should be interpreted taking into account thepatient's history. It is recommended to retest PCT within6-24 hours if any concentrations <2 ng/mL are obtained. LACTIC ACID [id number] 08:56:00* Test Item Value Reference Range Interpretation Comments LACTIC ACID POC (test code = LACTP) 1.1 MMOL/L 0.90-1.70 N Performed by certified catalyst operator chief at [facility] C REACTIVE [id number] 08:18:00* Test Item Value Reference Range Interpretation Comments C REACTIVE PROTEIN (test code = CRP) 151.0 MG/L 0.0-2.9 H COMPREHENSIVE METABOLIC [id number] 08:16:00* Test Item Value Reference Range Interpretation Comments SODIUM (test code = NA) mEq/L 134-147 POTASSIUM (test code = K) mEq/L 3.4-5.0 CHLORIDE (test code = CL) mEq/L 100-108 CARBON DIOXIDE (test code = CO2) mEq/L 21-33 ANION GAP (test code = GAP) 0-20 GLUCOSE (test code = GLU) mg/dL 70-110 BLOOD UREA NITROGEN (test code = BUN) mg/dL 7-18 GLOMERULAR FILTRATION RATE (test code = GFR) 80-90 CREATININE (test code = CREAT) mg/dL 0.6-1.3 TOTAL PROTEIN (test code = PROT) g/dL 6.4-8.2 ALBUMIN (test code = ALB) g/dL 3.4-5.0 CALCIUM (test code = CA) mg/dL 8.0-10.5 BILIRUBIN TOTAL (test code = BILT) MG/DL <1.5 SGOT/AST (test code = AST) IUnit/L 15-37 SGPT/ALT (test code = ALT) IUnit/L 15-65 ALKALINE PHOSPHATASE TOTAL (test code = ALKP) IUnit/L 20-125 [id number] 08:16:00* Test Item Value Reference Range Interpretation Comments TROPONIN-I (test code = TROPI) < 0.015 ng/mL 0.000-0.045 N Negative: <= 0.045 Positive: >= 0.046 Correlation with serial results, other cardiac markers andclinical findings is necessary to determine the clinicalsignificance of this result. Results using different methodologies should not be comparedto one another as quantitative results may vary by method. COMPREHENSIVE METABOLIC [id number] 08:16:00* Test Item Value Reference Range Interpretation Comments SODIUM (test code = NA) 136 mEq/L 134-147 N POTASSIUM (test code = K) 4.1 mEq/L 3.4-5.0 N CHLORIDE (test code = CL) 104 mEq/L 100-108 N CARBON DIOXIDE (test code = CO2) 27 mEq/L 21-33 N ANION GAP (test code = GAP) 9 0-20 N GLUCOSE (test code = GLU) 335 mg/dL 70-110 H BLOOD UREA NITROGEN (test code = BUN) 19 mg/dL 7-18 H GLOMERULAR FILTRATION RATE (test code = GFR) 85.8 80-90 N Units of measure = ml/min/1.73 m2 CREATININE (test code = CREAT) 0.9 mg/dL 0.6-1.3 N TOTAL PROTEIN (test code = PROT) 7.2 g/dL 6.4-8.2 N ALBUMIN (test code = ALB) 3.40 g/dL 3.4-5.0 N CALCIUM (test code = CA) 8.8 mg/dL 8.0-10.5 N BILIRUBIN TOTAL (test code = BILT) 0.6 MG/DL <1.5 N SGOT/AST (test code = AST) 7 IUnit/L 15-37 L SGPT/ALT (test code = ALT) 14 IUnit/L 15-65 L ALKALINE PHOSPHATASE TOTAL (test code = ALKP) 156 IUnit/L 20-125 H [id number] 08:16:00* Test Item Value Reference Range Interpretation Comments TROPONIN-I (test code = TROPI) < 0.015 ng/mL 0.000-0.045 N Negative: <= 0.045 Positive: >= 0.046 Correlation with serial results, other cardiac markers andclinical findings is necessary to determine the clinicalsignificance of this result. Results using different methodologies should not be comparedto one another as quantitative results may vary by method. CBC W/AUTO [id number] 08:00:00* Test Item Value Reference Range Interpretation Comments WHITE BLOOD CELL (test code = WBC) 13.43 x10 3/uL 4.5-11.0 H RED BLOOD CELL (test code = RBC) 4.48 x10 6/uL 4.00-5.60 N HEMOGLOBIN (test code = HGB) 11.9 g/dL 12.5-16.9 L HEMATOCRIT (test code = HCT) 35.4 % 37.5-50.7 L MEAN CELL VOLUME (test code = MCV) 79.0 fL 81.0-99.0 L MEAN CELL HGB (test code = MCH) 26.6 pg 27.0-33.0 L MEAN CELL HGB CONCETRATION (test code = MCHC) 33.6 g/dL 33.0-37. 0 N RED CELL DISTRIBUTION WIDTH CV (test code = RDW) 13.4 % 11.5- 14.5 N RED CELL DISTRIBUTION WIDTH SD (test code = RDW-SD) 38.3 fL 37 .0-54.0 N PLATELET COUNT (test code = PLT) 208 x10 3/uL 150-400 N MEAN PLATELET VOLUME (test code = MPV) 10.9 fL 7.0-9.0 H NEUTROPHIL % (test code = NT%) 75.8 % 56.0-77.0 N IMMATURE GRANULOCYTE % (test code = IG%) 0.4 % 0.0-2.0 N LYMPHOCYTE % (test code = LY%) 12.6 % 14.0-32.0 L MONOCYTE % (test code = MO%) 8.4 % 4.8-9.0 N EOSINOPHIL % (test code = EO%) 2.4 % 0.3-3.7 N BASOPHIL % (test code = BA%) 0.4 % 0.0-2.0 N NUCLEATED RBC % (test code = NRBC%) 0.0 % 0-0 N NEUTROPHIL # (test code = NT#) 10.17 x10 3/uL 2.0-7.6 H IMMATURE GRANULOCYTE # (test code = IG#) 0.06 x10 3/uL 0.00-0.03 H LYMPHOCYTE # (test code = LY#) 1.69 x10 3/uL 1.0-3.8 N MONOCYTE # (test code = MO#) 1.13 x10 3/uL 0.1-0.8 H EOSINOPHIL # (test code = EO#) 0.32 x10 3/uL 0.0-0.2 H BASOPHIL # (test code = BA#) 0.06 x10 3/uL 0.0-0.2 N NUCLEATED RBC # (test code = NRBC#) 0.00 x10 3/uL 0.0-0.1 N MANUAL DIFF REQUIRED (test code = MDIFF) NO
--- NOTE | 2020-08-14 20:54 | Diagnostic Imaging Report ---
FOOT RIGHT COMPLETE - 3 views HISTORY: Gangrene of foot. COMPARISON: None available. FINDINGS: Bones: No acute displaced fracture. Small plantar calcaneal enthesophyte. Deformity of the posterior malleolus may be related to prior injury. Joints: Degenerative changes of the first interphalangeal joint. Soft tissues: Diffuse soft tissue swelling of the hallux. No soft tissue gas. IMPRESSION: Diffuse soft tissue swelling of the hallux suggestive of cellulitis. Degenerative changes of the first interphalangeal joint with mild subchondral erosive changes. Concern for also bilaterally is remains, consider further evaluation with MRI without and with contrast. Signed by: Dr. Joi Kumar M.D. on 08/14/2020 8:50 PM
--- NOTE | 2020-08-14 21:21 | Emergency Department Note ---
History of Present Illnes History of Present Illness Chief Complaint: Extremity Trauma/Pain History of Present Illness This is a 64 year old male . Chief Complaint Comment 64 Y/O MALE PT AAOX3 PRESENTS TO THE ER FOR DIRECT ADMISSION BY DR. STEINER FOR OSTEOMYELITIS AND GANGRENE TO RT FOOT; PT HAS GANGRENE TO RT FOOT FOR THE PAST WEEK; PT DENIES FEVER/CHILLS; V/S/S; NAD NOTED AT THIS TIME. Historian: Patient Arrival Mode: Car Onset (how long ago): day(s) Severity: mild Duration (how long): day(s) Chronicity: new Past Medical/Family History Physician Review I have reviewed the patient's past medical and family history. Any updates have been documented here. Past Medical History Recent Fever: No Clinical Suspicion of Infectio: No New/Unexplained Change in Ment: No Past Medical History: Hypertension, Diabetes Past Surgical History: None Social History Smoking Cessation: Never Smoker Counseling Performed: No Alcohol Use: Occasional Any Illegal Drug Use: No Other Any Pre-Existing Lines (PICC,: No Review of Systems Review of Systems Constitutional: Reports no symptoms EENTM: Reports no symptoms Cardiovascular: Reports no symptoms Respiratory: Reports no symptoms Gastrointestinal: Reports no symptoms Genitourinary: Reports no symptoms Musculoskeletal: Reports as per HPI, Reports joint pain, Reports joint swelling Integumentary: Reports no symptoms Neurological: Reports no symptoms Psychological: Reports no symptoms Endocrine: Reports no symptoms Hematological/Lymphatic: Reports no symptoms Physical Exam Related Data Allergies: Coded Allergies: No Known Allergies (Unverified , 08/14/20) Triage Vital Signs Vital Signs Date Time Temp Pulse Resp B/P (MAP) Pulse Ox O2 Delivery O2 Flow Rate FiO2 08/14/20 19:12 98.4 79 20 165/87 100 Room Air Vital signs reviewed: Yes Physical Exam CONSTITUTIONAL Constitutional: Present well-developed, Present well-nourished HENT HENT: Present normocephalic, Present atraumatic, Present oropharynx clear/moist, Present nose normal HENT L/R: Present left ext ear normal, Present right ext ear normal EYES Eyes: Reports PERRL, Reports conjunctivae normal NECK Neck: Present ROM normal PULMONARY Pulmonary: Present effort normal, Present breath sounds normal CARDIOVASCULAR Cardiovascular: Present regular rhythm, Present heart sounds normal, Present capillary refill normal, Present normal rate GASTROINTESTINAL Abdominal: Present soft, Present nontender, Present bowel sounds normal GENITOURINARY Genitourinary: Present exam deferred SKIN Skin: Present warm, Present dry MUSCULOSKELETAL Musculoskeletal: Present ROM normal, Present tenderness, Present swelling NEUROLOGICAL Neurological: Present alert, Present oriented x 3, Present no gross motor or sensory deficits PSYCHOLOGICAL Psychological: Present mood/affect normal, Present judgement normal Results Laboratory Result Diagram: 08/14/20194608/14/201946 Laboratory Laboratory Tests Test 08/14/20 19:47 White Blood Count 7.34 x10e3/uL (4.8-10.8) Red Blood Count 4.08 x10e6/uL (4.3-5.7) Hemoglobin 10.5 g/dL (14.0-18.0) Hematocrit 32.1 % (38.2-49.6) Mean Corpuscular Volume 78.7 fL (81-99) Mean Corpuscular Hemoglobin 25.7 pg (28-32) Mean Corpuscular Hemoglobin Concent 32.7 g/dL (31-35) Red Cell Distribution Width 13.2 % (11.7-14.4) Platelet Count 286 x10e3/uL (140-360) Neutrophils (%) (Auto) 60.9 % (38.7-80.0) Lymphocytes (%) (Auto) 27.9 % (18.0-39.1) Monocytes (%) (Auto) 6.4 % (4.4-11.3) Eosinophils (%) (Auto) 3.7 % (0.0-6.0) Basophils (%) (Auto) 0.4 % (0.0-1.0) Neutrophils # (Auto) 4.5 (2.1-6.9) Lymphocytes # (Auto) 2.1 (1.0-3.2) Monocytes # (Auto) 0.5 (0.2-0.8) Eosinophils # (Auto) 0.3 (0.0-0.4) Basophils # (Auto) 0.0 (0.0-0.1) Absolute Immature Granulocyte (auto 0.05 x10e3/uL (0-0.1) Sodium Level 141 mmol/L (136-145) Potassium Level 4.4 mmol/L (3.5-5.1) Chloride Level 105 mmol/L (98-107) Carbon Dioxide Level 27 mmol/L (22-29) Anion Gap 13.4 mmol/L (8-16) Blood Urea Nitrogen 21 mg/dL (7-26) Creatinine 1.10 mg/dL (0.72-1.25) Estimat Glomerular Filtration Rate > 60 ML/MIN (60-) BUN/Creatinine Ratio 19 (6-25) Glucose Level 326 mg/dL (74-118) Lactic Acid Level 0.6 mmol/L (0.5-2.0) Calcium Level 9.5 mg/dL (8.4-10.2) Total Bilirubin 0.1 mg/dL (0.2-1.2) Aspartate Amino Transf (AST/SGOT) 13 IU/L (5-34) Alanine Aminotransferase (ALT/SGPT) 12 IU/L (0-55) Alkaline Phosphatase 124 IU/L (40-150) Creatine Kinase 53 IU/L (30-200) Creatine Kinase MB 1.60 ng/mL (0-5.0) Troponin I 0.007 ng/mL (0-0.300) Total Protein 7.3 g/dL (6.5-8.1) Albumin 3.6 g/dL (3.5-5.0) Globulin 3.7 g/dL (2.3-3.5) Albumin/Globulin Ratio 1.0 (0.8-2.0) Imaging Imaging results reviewed: Yes Impressions IMPRESSION: Diffuse soft tissue swelling of the hallux suggestive of cellulitis. Degenerative changes of the first interphalangeal joint with mild subchondral erosive changes. Concern for also bilaterally is remains, consider further evaluation with MRI without and with contrast. Signed by: Dr. Joi Kumar M.D. on 08/14/2020 8:50 PM Assessment & Plan Medical Decision Making MDM 64-year-old male arrives to the ED with complaints of right foot pain and concerns osteo-myelitis. Patient's x-ray findings consistent with osteotomy was admitted for IV antibiotics, podiatry evaluation and possible amputation. Concerns of possible impending sepsis noted 1930 and patient was empirically covered with antibiotics, lactic acid and blood cultures obtained. Initial lactic acid unremarkable, no indications for repeat. Assessment & Plan Final Impression: (1) Foot osteomyelitis, right Depart Disposition: ADMITTED Last Vital Signs Date Time Temp Pulse Resp B/P (MAP) Pulse Ox O2 Delivery O2 Flow Rate FiO2 11/11/20 19:12 98.4 79 20 165/87 100 Room Air Home Meds Reported Medications Tamsulosin Hcl* (FLOMAX*) 0.4 Mg Cap, 1 CAP PO DAILY 08/14/20 Lisinopril (LISINOPRIL) 10 Mg Tablet, 10 MG PO DAILY 08/14/20 Levofloxacin (LEVOFLOXACIN) 500 Mg Tablet, 1 TAB PO DAILY for 10 Days 08/14/20 Insulin Glargine (LANTUS 3ML PEN) 100 Units/1 Ml Inj, 24 UNITS SC HS 08/14/20 Medications in the ED Vancomycin HCl 250 ml @ 166.667 mls/hr NOW STAT IV ; Start 08/14/20 at 19:19; Stop 08/14/20 at 20:48; Status DC Cefepime HCl 50 ml @ 100 mls/hr Q24H IV ; Start 08/14/20 at 19:19; Stop 08/21/20 at 19:18 SOLOMON AGRAWAL DO Aug 14, 2020 21:21
--- OUTSIDE RECORDS SUMMARY | 2020-08-14 21:38 | XMS REPORT | Continuity of Care Document ---
Author Author [facility] t Organization [facility] Address [address] [place] [address] Phone Unavailable Care Team Providers Care Investigations Chief Name Role Phone Fabio Seay MD PCP [phone] Bill AGRAWAL Attphys Unavailable Ava EDMONDSON, [facility] Attphys Edgardo Morales MD Attphys Ava EDMONDSON, Sveta Cain Attphys Austin EDMONDSON, [facility] Sariah Attphys Raymundo Ureña DO Attphys Vinnie oHlland APRN Attphys Dilia EDMONDSON, Joi Sutton Attphys SUKHDEEP STEINER Admphys Unavailable EDGARDO MORALES Admphys Unavailable Payers Payer Name Policy Type Policy Number Effective Date Expiration Date Bill richey [facility]CHOICE [id number] 2018-PresentHMO/ PPO [id number] 2019 00:00:00 [place] [facility] Problems Condition Name Condition Details Condition Category Status Onset Date Resolution Date Last Treatment Date Treating Clinician Comments Source Prostatocystitis Prostatocystitis Disease Active 2020-04-19 00:00:00 Pk Cain Allergies, Adverse Reactions, Alerts Allergy Name Allergy Type Status Severity Reaction(s) Onset Date Inacti ve Date Treating Clinician Comments Source No Known Allergies DA Active U 2019-09-11 00:00:00 [facility] Social History Social Habit Start Date Stop Date Quantity Comments Source Sex Assigned At Sujatha shaikh Rastafari Tobacco use and exposure 2020-04-26 00:00:00 2020-04-26 00:00:00 Ida appiah used Pk Cain Alcohol intake 2020-04-26 00:00:00 2020-04-26 00:00:00 Ex-drinker (fi nding) Pk Cain Smoking Status Start Date Stop Date Source Never smoker Pk najera Medications Ordered Medication Name Filled Medication Name [...] mg by mouth every morning. Pk Nice ethodist hydroCHLOROthiazide (HYDRODIURIL) 25 MG tablet 2020-04-27 13:31: [...] Cain Body temperature 2020-04-27 11:22:06 36.78 Becka Mili murphy Rastafari Respiratory rate 2020-04-27 11:22:06 18 /min Mili murphy Rastafari Oxygen saturation in Arterial blood by Pulse oximetry 04-27 11:22:06 95 /min Pk Rastafari Body weight 2020-04-25 08:23:00 77.565 kg Pk Cain BMI 2020-04-25 08:23:00 24.54 kg/m2 Pk Cain Body height 2020-04-24 06:46:00 177.8 cm Pk Cain Procedures Procedure Date / Time Performed Performing Clinician Sourc e POC GLUCOSE 2020-04-27 11:22:00 Sariah Avila POC GLUCOSE 2020-04-27 07:40:00 Sariah Avila HC COMPLETE BLD COUNT W/AUTO DIFF 2020-04-27 04:36:00 Franchesca Escalante Rastafari BASIC METABOLIC PANEL 2020-04-27 04:00:00 Su Escalante Rastafari ESTIMATED GFR 2020-04-27 04:00:00 Su Escalante odangelia POC GLUCOSE 2020-04-26 20:59:00 Sariah Avila Rastafari POC GLUCOSE 2020-04-26 17:09:00 Sariah Avila POC GLUCOSE 2020-04-26 11:05:00 Sariah Avila Rastafari POC GLUCOSE 2020-04-26 07:23:00 Sariah Avila Rastaf[facility] BASIC METABOLIC PANEL 2020-04-26 03:20:00 Sariah Avila HC COMPLETE BLD COUNT W/AUTO DIFF 2020-04-26 03:20:00 Zehra Avila ESTIMATED GFR 2020-04-26 03:20:00 Sariah Avila POC GLUCOSE 2020-04-25 21:26:00 Sariah Avila VANCOMYCIN LEVEL, TROUGH 2020-04-25 17:30:00 Herb Roldan Rastafari POC GLUCOSE 2020-04-25 16:23:00 Sariah Avilaist POC GLUCOSE 2020-04-25 11:20:00 Lock, Sariah [place] [facility] POC GLUCOSE 2020-04-25 07:33:00 Lock, Sariah [place] [facility] POC GLUCOSE 2020-04-25 05:40:00 Lock, Sariah [place] [facility] BASIC METABOLIC PANEL 2020-04-25 04:35:00 Lock, Sariah [facility] ESTIMATED GFR 2020-04-25 04:35:00 Lock, Sariah [place] [facility] CBC WITH PLATELET AND DIFFERENTIAL 2020-04-25 04:15:00 Lock, Lazaro [place] [facility] POC GLUCOSE 2020-04-25 02:09:00 Lock, Sariah [place] [facility] POC GLUCOSE 2020-04-24 21:04:00 Lock, Sariah [place] [facility] POC GLUCOSE 2020-04-24 16:16:00 Lock, Sariah [place] [facility] POC GLUCOSE 2020-04-24 11:14:00 Lock, Sariah [place] [facility] URINE CULTURE 2020-04-24 11:05:00 Herman Cortez Me thodist POC GLUCOSE 2020-04-24 09:48:00 Austin, Sariah [place] [facility] ANAEROBIC CULTURE 2020-04-24 09:13:00 Herman Cortez FUNGUS CULTURE 2020-04-24 09:13:00 Herman Cortez Ak thodist AEROBIC CULTURE 2020-04-24 09:13:00 Herman Cortez Me thodist AFB CULTURE 2020-04-24 09:13:00 Herman Cortez Me thodist GRAM STAIN 2020-04-24 09:13:00 Herman Cortez Me thodist AFB STAIN 2020-04-24 09:13:00 Herman Cortez Me thodist ANAEROBIC CULTURE 2020-04-24 09:00:00 Herman Cortez ANESTHESIA INTUBATION 2020-04-24 08:16:47 Macy Dejesus Rastafari CYSTO, SALINE TURP (BIPOLAR) 2020-04-24 07:57:00 Herman Cortez BASIC METABOLIC PANEL 2020-04-24 03:55:00 LockSariah HC COMPLETE BLD COUNT W/AUTO DIFF 2020-04-24 03:55:00 Zehra Avila Pk Cain ESTIMATED GFR 2020-04-24 03:55:00 LockPedroy Ramya Cain POC GLUCOSE 2020-04-23 21:01:00 LockPedroy Ramya Cain POC GLUCOSE 2020-04-23 17:13:00 LockPedroy Ramya [place] [facility] POC GLUCOSE 2020-04-23 12:17:00 LockPedroy Ramya Cain POC GLUCOSE 2020-04-23 08:07:00 LockPedroy Ramya Cain BASIC METABOLIC PANEL 2020-04-23 04:00:00 Sariah Avila ESTIMATED GFR 2020-04-23 04:00:00 Sariah Avila HC COMPLETE BLD COUNT W/AUTO DIFF 2020-04-23 03:30:00 AustinZehra Ellah Pk Cain POC GLUCOSE 2020-04-22 21:29:00 LockPedroy Ramya Cain POC GLUCOSE 2020-04-22 17:20:00 LockPedroy Ramya Cain POC GLUCOSE 2020-04-22 12:49:00 LockPedroy Ramya Cain POC GLUCOSE 2020-04-22 08:42:00 LockPedroy Ramya Cain BASIC METABOLIC PANEL 2020-04-22 04:30:00 LockSariah HC COMPLETE BLD COUNT W/AUTO DIFF 2020-04-22 04:30:00 AustinZehra Ellah Pk Rastafari VANCOMYCIN LEVEL, TROUGH 2020-04-22 04:30:00 Edgardo Morales Rastafari ESTIMATED GFR 2020-04-22 04:30:00 Edgardo Morales POC GLUCOSE 2020-04-21 20:56:00 Sariah Avila Rastafari POC GLUCOSE 2020-04-21 17:29:00 Lock, Sariah [place] [facility] POC GLUCOSE 2020-04-21 12:36:00 Lock, Sariah [place] [facility] POC GLUCOSE 2020-04-21 07:11:00 Lock, Sariah [place] [facility] BASIC METABOLIC PANEL 2020-04-21 04:00:00 Lock, Sariah Ochoa sim Rastafari HC COMPLETE BLD COUNT W/AUTO DIFF 2020-04-21 04:00:00 Austin, Zehra [place] [facility] ESTIMATED GFR 2020-04-21 04:00:00 Lock, Sariah [place] [facility] POC GLUCOSE 2020-04-20 20:56:00 Lock, Sariah [place] [facility] POC GLUCOSE 2020-04-20 17:27:00 Lock, Sariah [place] POC GLUCOSE 2020-04-20 12:55:00 Lock, Sariah [place] [facility] US RENAL 2020-04-20 09:40:00 Erasmo Gutiérreztbrittaney [facility] Rastafari POC GLUCOSE 2020-04-20 07:45:00 Lock, Sariah [place] Rastaf[facility] SODIUM LEVEL, URINE, RANDOM 2020-04-20 05:15:00 Erasmo Gutiérrez Rastafari CREATININE LEVEL, URINE, RANDOM 2020-04-20 05:15:00 Magnus Gutiérrez Rastafari OSMOLALITY, URINE 2020-04-20 05:15:00 Erasmo Gutiérrez [place] [facility] HC COMPLETE BLD COUNT W/AUTO DIFF 2020-04-20 05:15:00 Tex Morales Rastafari BASIC METABOLIC PANEL 2020-04-20 05:15:00 Edgardo Morales Rastafari MAGNESIUM LEVEL 2020-04-20 05:15:00 Edgardo Morales Met hodist LACTIC ACID LEVEL 2020-04-20 05:15:00 Edgardo Morales ethodist HIV AG/AB COMBINATION 2020-04-20 05:15:00 Edgardo Morales Rastafari ESTIMATED GFR 2020-04-20 05:15:00 Edgardo Morales Met hodangelia POC GLUCOSE 2020-04-20 05:12:00 Edgardo Morales Met hodist TROPONIN 2020-04-19 23:40:00 Ofe Lemus on Rastafari LACTIC ACID LEVEL, SEPSIS - NOW AND REPEAT 2X EVERY 3 HOURS 2020-04-19 23:40:00 Ofe Lemus COVID-19 QUALITATIVE PCR 2020-04-19 21:35:00 Ofe Lemus TROPONIN 2020-04-19 21:26:00 Ofe Lemus on Rast[place] LACTIC ACID LEVEL, SEPSIS - NOW AND REPEAT 2X EVERY 3 HOURS 2020-04-19 21:26:00 Ofe Lemus URINE CULTURE 2020-04-19 19:34:00 Ofe Lemus on Rastafari URINALYSIS SCREEN AND MICROSCOPY, WITH REFLEX TO CULTURE 202 19:20:[address] ANGIOGRAM PE CHEST 2020-04-19 19:16:[address] ABDOMEN PELVIS W CONTRAST 2020-04-19 19:16:07 Ofe Lemus VENOUS BLOOD GAS 2020-04-19 18:35:00 Ofe Lemus Rastafari BETA HYDROXYBUTYRATE 2020-04-19 18:30:00 Ofe Lemus BLOOD CULTURE, AEROBIC & ANAEROBIC 2020-04-19 17:30:00 Jonathan Lemus HC COMPLETE BLD COUNT W/AUTO DIFF 2020-04-19 17:30:00 Eren Lemus PROTHROMBIN TIME WITH INR 2020-04-19 17:30:00 Ofe Lemus PARTIAL THROMBOPLASTIN TIME (PTT) 2020-04-19 17:30:00 Eren Lemus COMPREHENSIVE METABOLIC PANEL 2020-04-19 17:30:00 Desmond Lemus CREATINE KINASE, TOTAL (CPK) 2020-04-19 17:30:00 Ofe Lemus TROPONIN 2020-04-19 17:30:00 Ofe Lemus on Rastafari B NATRIURETIC PEPTIDE 2020-04-19 17:30:00 Ofe Lemus ESTIMATED GFR 2020-04-19 17:30:00 Ofe Lemus on Rastafari LACTIC ACID LEVEL 2020-04-19 17:30:00 Ofe Lemus Rastafari BLOOD CULTURE, AEROBIC & ANAEROBIC 2020-04-19 17:25:00 Jonathan Lemus DE CRITICAL CARE, E/M 30-74 MINUTES 2020-04-19 17:13:36 Ofe Lemus ECG ED PRELIMINARY INTERPRETATION 2020-04-19 17:13:36 [facility] [place] [facility] ECG 12-LEAD 2020-04-19 17:07:37 Ofe Lemus on Rastafari COVID-19 QUALITATIVE PCR 2020-04-19 16:31:00 Herman Cortez Rastafari ECG PRE/POST OP 2020-04-19 16:17:37 Vinnie Holland Met hodist HEMOGLOBIN A1C 2020-04-19 15:18:00 Vinnie Holland Met hodist COMPREHENSIVE METABOLIC PANEL 2020-04-19 15:18:00 Roxy Hollandist HC COMPLETE BLD COUNT W/AUTO DIFF 2020-04-19 15:18:00 Vero Holland ESTIMATED GFR 2020-04-19 15:18:00 Vinnie Holland Met hodist Plan of Care Planned Activity Planned Date Details Comments Source Future Scheduled Test 2020-05-04 00:00:00 INFLUENZA VACCINE [code = INFLUENZA VACCINE] Pk Cain Future Scheduled Test 2007 00:00:00 COLONOSCOPY SCREEN ING [code = COLONOSCOPY SCREENING] [place] [facility] Future Scheduled Test 2007 00:00:00 SHINGLES VACCINES (#1) [code = SHINGLES VACCINES (#1)] [place] [facility] Encounters Start Date/Time End Date/Time Encounter Type Admission Type Attendi [facility] Care Department Encounter ID Source 2020-04-19 00:00:00 2020-04-27 00:00:00 Inpatient SARIAH AVILA [facility] [id number] [place] [facility] 2020-04-19 00:00:00 2020-04-19 00:00:00 Outpatient HARSHAD CORTEZ [facility] [id number] [place] [facility] Results Test Description Test Time Test Comments Results Result Comments Source FOOT RIGHT COMPLETE 2020-08-14 20:45:[address] [facility] [facility] : 1955 Sex: M [place] [address] Patient Name: JOSE MONTOYA I MR #: [id number] : 1955 Age/Sex: 64/M Req #: [id number] Adm Physician: Ordered by: SOLOMON AGRAWAL DO Report #: [id number] Location: ER Room/Bed: Procedure: [id number] DX/FOOT RIGHT COMPLETE Exam Date: 08/14/20 Exam Time: 1954 REPORT STATUS: Signed FOOT RIGHT COMPLETE - 3 views HIST ORY: Gangrene of foot. COMPARISON: None available. FINDINGS: Bones: No acute displaced fracture. Small plantar calcaneal enthesophyte. Deformity of the posterior malleolus may be related to prior injury. Joints: Degenerative changes of the first interphalangeal joint. Soft tissues: Diffuse soft tissue swelling of the hallux. No soft tissue gas. IMPRESSION: Diffuse soft tissue swelling of the hallux suggestive of cellulitis. Degenerative changes of the first interphalangeal joint with mild subchondral erosive changes. Concern for also bilaterally is remains, consider further evaluation with MRI without and with contrast. Signed by: Dr. Joi Dudley M.D. on 08/14/2020 8:50 PM Dictated By: MIKE DUDLEY MD, MD 49 Transcribed By: SHYAM on 08/14/202049 COPY TO: SOLOMON AGRAWAL, DO AFB culture 2020-06-05 12:13:10 Test Item AFB culture isolate (test code = 543-9) No growth after 6 we eks of incubation. Specimen InformationSpecimen Source: AbscessSpecimen Site: Prostate: drainage [place] MethodistFungus [id number] 12:15:08* Test Item Value Reference Range Interpretation Comments Fungus culture isolate (test code = 1441) No growth af ter 4 weeks of incubation. Specimen Information Specimen Source: AbscessSpecimen Site: Prostate: drainage [place] MethodistAnaerobic hadjkjf5937-76-93 07:51:29* Test Item Value Reference Range Interpretation Comments Anaerobic culture isolate (test code = 552) No anaerobic organis ms isolated. Specimen InformationSpecimen Source: Abs cessSpecimen Site: Prostate: drainage [facility]istPOC [id number] 11:23:25* Test Item Value Reference Range Interpretation Comments POC glucose (test code = 42021-8) 204 mg/dL 65-99 H Web Site Specialist Name: Morteza RevelesLandy ID: [id number]: [facility] Notified lab support tech Interpretation (test code = 68184-7) Abnormal [facility] metabolic [id number] 05:21:38* Test Item Value Reference Range Interpretation Comments Sodium (test code = 2951-2) 145 135- 148 mEq/L Potassium (test code = 2823-3) 3.6 3.5- 5.0 mEq/L Chloride (test code = 2075-0) 107 98- 112 mEq/L CO2 (test code = 8-9) 27 24- 31 mEq/L Anion gap (test code = 76233-4) 11@ANIO 7- 15 mEq/L BUN (test code = 3094-0) 12 mg/dL 8-23 Creatinine (test code = 2160-0) 1.13 mg/dL 0.7-1.2 Glucose (test code = 2345-7) 117 mg/dL 65-99 H Calcium (test code = 12408-6) 9.1 mg/dL 8.8-10.2 Lab Interpretation (test code = 68169-7) Abnormal [place] MethodistEstimated [id number] 05:21:38* Test Item Value Reference Range Interpretation Comments Estimated GFR (test code = 5488) 69 mL/min/1.73 m2 Catergory Units InterpretationG1 >=90 Normal or highG2 60-89 Mildly xrjjazxwqL7m 45-59 Mildly to moderately invigxpkjX9p 30-44 Moderately to severely decreasedG4 15-29 Severely decreasedG5 <15 Kidney failureThe eGFR was calculated using the Chronic Kidney Disease Epidemiology Collaboration (CKD-EPI) equation. Interpretation is based on recommendations of the National Kidney Foundation-Kidney Disease Outcomes Quality Initiative (NKF-KDOQI) published in 2014. [place] MethodistCBC with platelet and uvrarlnotfjz8592-13-80 04:52:25* Test Item Value Reference Range Interpretation Comments WBC (test code = 75325-5) 9.93 4.50- 11.00 k/uL RBC (test code = 15395-2) 3.43 m/uL 4.4-6 L HGB (test code = 718-7) 8.4 g/dL 14-18 L HCT (test code = 4544-3) 27.4 % 41-51 L MCV (test code = 787-2) 79.9 fL 82-100 L MCH (test code = 785-6) 24.5 pg 27-34 L MCHC (test code = 786-4) 30.7 g/dL 31-37 L RDW - SD (test code = 58401-9) 39.2 fL 37-55 MPV (test code = 68183-3) 8.9 fL 8.8-13.2 Platelet count (test code = 25909-6) 238 150- 400 k/uL Nucleated RBC (test code = 90664-1) 0.00 /100 WBC Neutrophils (test code = 63242-5) 65.5 % 39-69 Lymphocytes (test code = 42282-9) 19.4 % 25-45 L Monocytes (test code = 72846-6) 10.1 % 0-10 H Eosinophils (test code = 74723-5) 3.1 % 0-5 Basophils (test code = 78140-9) 0.4 % 0-1 Immature granulocytes (test code = 65543-2) 1.5 % 0-1 H "Immature granulocytes" (promyelocytes, myelocytes, metamyelocytes) Lab Interpretation (test code = 58628-6) Abnormal [place] MethodistAFB [id number] 12:13:32* Test Item Value Reference Range Interpretation Comments AFB stain (test code = 676-7) No acid fast bacilli (AFB) seen. Specimen InformationSpecimen Source: AbscessSpecimen Site: Prostate: drainage [place] MethodistFungus [id number] 12:13:32* Test Item Value Reference Range Interpretation Comments Fungus smear (test code = 1443) No fungi observed. Specimen InformationSpecimen Source: AbscessSpecimen Site: Prostate: drainage [place] MethodistGram iusev8193-85-61 12:13:32Gram stain isolateOccasional WBC'sModerate Gram positive cocci in pairsModerate Gram positive cocci in clusters Comment: Specimen InformationSpecimen Source: AbscessSpecimen Site: Prostate: drainage [facility] MethodistVancomycin level, [id number] 19:05:29* Test Item Value Reference Range Interpretation Comments Vancomycin, trough (test code = 48062-9) 14.1 ug/mL 10-20 Therapeutic Ranges: Peak 30.0 - 40.0 ug/mL Trough 10.0 - 20.0 ug/mL [facility] culture, aerobic & ugademfze0149-02-53 20:33:05* Test Item Value Reference Range Interpretation Comments Blood culture isolate (test code = 600-7) No growth after 5 days of incubation. Specimen InformationSpecimen Source: BloodSpecimen Site: Forearm, right [place] VevxrccydDuvqgb7000-16-13 08:16:47Macy Dejesus CRNA 04/24/2020 8:17 AMAirwayPerformed by: Macy Dejesus CRNAAuthorized by: Raymundo Ureña DO Location: ORResident/ROSHNI/AA: Macy Dejesus CRNAPreoxygenated with 100% [...] no problems, teeth and mouth protected and unchanged.[place] MethodistEC 12 [id number] 17:46:30* Test Item Value Reference Range Interpretation Comments Ventricular rate (test code = 253) 104 Atrial rate (test code = 255) 104 DE interval (test code = 266) 166 QRSD [...] 16:17,-Left anterior fascicular block is now present- [place] MethodistEC Pre/Post [id number] 17:45:54* Test Item Value Reference Range Interpretation Comments Ventricular rate (test code = 253) 93 Atrial rate (test code = 255) 93 DE interval (test code = 266) 164 QRSD [...] bundle branch block-Borderline ECG-No previous ECGs available- [place] MethodangeliaUS [id number] 11:31:38Hm Interface, Radiology Results [facility] - 04/20/2020 11:34 AM CDTEXAMINATION: US RENALCLINICAL HISTORY: [...] the lumen is decompres sed by a Plummer.[id number] MethodistCOVID-19 qualitative [id number] 11:27:08* Test Item Value Reference Range Interpretation Comments Interpretation (test code = 9211529) Negative results do not preclude 2019-nCoV infection and should not be used as the sole basis for treatment or other patient management decisions. Negative results must be combined with clinical observations, patient history, and epidemiological information. COVID-19 qualitative PCR result (test code = 57359-6) Not-Detect ed Not-Detected COVID-19 qualitative PCR (test code = 7070) See link below for P DF Lab Report Pk MethodistOsmolality, [id number] 10:17:36* Test Item Value Reference Range Interpretation Comments Osmolality, urine (test code = 2695-5) 408 50- 1,400 mOsm/ kg [place] MethodistCreatinine level, urine, mpfbpa9811-71-69 10:04:56* Test Item Value Reference Range Interpretation Comments Creatinine, urine, random (test code = 96804-1) 52 mg/dL [place] MethodistSodium level, urine, vltnfm8679-18-47 10:04:56* Test Item Value Reference Range Interpretation Comments Sodium, urine, random (test code = 15200-5) 99 mEq/L [place] MethodistHIV Ag/Ab oftgenutgwy6731-16-96 07:41:46* Test Item Value Reference Range Interpretation Comments HIV Ag/Ab combination (test code = 5299) Non-reactive Non-reactive [place] MethodistMagnesium dfaci8811-38-46 07:08:33* Test Item Value Reference Range Interpretation Comments Magnesium (test code = 72363-5) 1.9 mg/dL 1.6-2.4 [place] MethodistLactic acid rzynf3097-93-33 06:49:00* Test Item Value Reference Range Interpretation Comments Lactic acid (test code = 05964-5) 1.6 mmol/L 0.5-2.2 [place] MethodistUrinalysis screen and microscopy, with reflex to culture 2020-04-20 04:19:41* Test Item Value Reference Range Interpretation Comments Specimen site (test code = 2307694) Clean catch Color, UA (test code = 5778-6) Yellow Appearance, UA (test code = 5767-9) Hazy Specific gravity, UA (test code = 5811-5) 1.026 1.001-1.035 pH, UA (test code = 5803-2) 6.0 5.0-8.5 Protein, UA (test code = 42300-6) 2+ Negative A Glucose, UA (test code = 03148-4) 3+ Negative A Ketones, UA (test code = 2514-8) Negative Negative Bilirubin, UA (test code = 5770-3) Negative Negative Blood, UA (test code = 5794-3) Negative Negative Nitrite, UA (test code = 5802-4) Negative Negative Urobilinogen, UA (test code = 31620-1) <2.0 <2.0 Leukocyte esterase, UA (test code = 5799-2) Trace Negative A WBC, UA (test code = 5821-4) 9 0- 1 /HPF H RBC, UA (test code = 23971-8) 3 0- 5 /HPF Bacteria, UA (test code = 79771-4) Few None seen WBC clumps, UA (test code = 54353-5) Few A Yeast, UA (test code = 28656-0) None seen Yeast with pseudohyphae, UA (test code = 95729-1) None seen Hyaline casts, UA (test code = 5796-8) 11 /LPF Lab Interpretation (test code = 18827-0) Abnormal Pk JosueCycjgnpilGntynuvs3745-53-24 00:42:04* Test Item Value Reference Range Interpretation Comments Troponin (test code = 25894-0) <0.006 0-0.04 In patients suspected of having [...] OR decreased by less than 0.020 ng/mL [place] MethodistLactic acid level, SEPSIS - Now and repeat 2x every 3 hours 2020-04-20 00:28:15* Test Item Value Reference Range Interpretation Comments Lactic acid (test code = 80055-7) 1.6 mmol/L 0.5-2.2 [place] MethodistHemoglobin [id number] 20:23:36* Test Item Value Reference Range Interpretation Comments Hemoglobin A1C (test code = 71771-8) 11.1 % 4-5.6 H HbA1c cutoffs for diagnosing diabetes:4.0% - 5.6% = normal5.7% - 6.4% = increased risk for diabetes (prediabetes)9>=6.5% = lbimgpdv6Vmrfd for glycemic control (ADA 2016)< 7.0% Target for non adults with diabetes. More or less stringent targets may be appropriate for individual patients. <7.5% Target for Children and adolescents with type 1 diabetes. Lab Interpretation (test code = 93406-8) Abnormal [place] MethodistCT Abdomen Pelvis W Drgmhwks4010-76-42 19:29:36Hm Interface, Radiology Results 04/19/2020 7:32 PM [...] advised to ensure stability.Other incidental findings as [id number] _PS01[place] MethodistCT Angiogram Pe [id number] 19:22:32Hm Interface, Radiology Results - 04/19/2020 7:25 PM CDTEXAMINATION: CT ANGIOGRAM PE [...] MIP images were created by a dedicated microbiology technologist at the scanner and archived in [...] CT the abdomen and pelvis for further evaluation.[facility]-[id number] [place] MethodistBeta kjmivsmperzqkkj6156-92-01 19:17:00* Test Item Value Reference Range Interpretation Comments Beta hydroxybutyrate (test code = 6873-4) 0.07 mmol/L 0.02-0.27 [place] MethodistVenous blood [id number] 18:48:44* Test Item Value Reference Range Interpretation Comments pH, venous (test code = 2746-6) 7.35 7.32-7.42 pCO2, venous (test code = 2021-4) 48 45- 51 mmHg pO2, venous (test code = 2705-2) 28 25- 40 mmHg Base excess, venous (test code = 1927-3) 1 meq/L -2-2 O2 saturation, venous (test code = 2711-0) 54 % 40-70 Bicarbonate, venous (test code = 16143-3) 26.0 mmol/L 21-28 [place] MethodistB natriuretic dojrkft1745-46-21 18:12:49* Test Item Value Reference Range Interpretation Comments BNP (test code = 09342-4) 11 pg/mL 0-100 [place] MethodistComprehensive metabolic dvjfq9508-48-44 18:09:40* Test Item Value Reference Range Interpretation Comments Sodium (test code = 2951-2) 130 135- 148 mEq/L L Potassium (test code = 2823-3) 5.1 3.5- 5.0 mEq/L H Chloride (test code = 5-0) 90 98- 112 mEq/L L CO2 (test code = 2027-9) 23 24- 31 mEq/L L Anion gap (test code = 85436-5) 17@ANIO 7- 15 mEq/L H BUN (test code = 3094-0) 26 mg/dL 8-23 H Creatinine (test code = 2160-0) 1.41 mg/dL 0.7-1.2 H Glucose (test code = 2345-7) 380 mg/dL 65-99 H Calcium (test code = 18526-9) 10.5 mg/dL 8.8-10.2 H Protein (test code = 2885-2) 8.6 g/dL 6.3-8.3 H -Calh[place] 4.6- 7.0 g/dL1 week 4.4-7.6 g/dL7 months-1year 5.1-7.3 g/dL1-2 years 5.6-7.5 g/dL>3 years 6.0-8.0 g/uE11-692 6.3-8.3 g/dL Albumin (test code = 1751-7) 3.4 g/dL 3.5-5 L A/G ratio (test code = 1759-0) 0.7 0.7-3.8 Alkaline phosphatase (test code = 6768-6) 225 U/L 40-129 H AST (test code = 1920-8) 18 U/L 10-50 ALT (test code = 1742-6) 14 U/L 5-50 Total bilirubin (test code = 1974-2) 0.4 mg/dL 0-1.2 Lab Interpretation (test code = 32801-1) Abnormal [place] MethodistCreatine kinase, total (CPK)2020-04-19 18:09:39* Test Item Value Reference Range Interpretation Comments Creatine kinase (test code = 2157-6) 25 U/L 39-308 L Lab Interpretation (test code = 03725-5) Abnormal [place] [facility], [id number] 17:55:45* Test Item Value Reference Range Interpretation Comments PTT (test code = 29202-1) 42.3 23.0- 36.0 sec H PTT therapeutic range for unfractionated heparin is61.0-112.0 seconds which corresponds to Anti-Xa0.3-0.7 U/ml. Lab Interpretation (test code = 74526-8) Abnormal [place] [facility] with [id number] 17:54:54* Test Item Value Reference Range Interpretation Comments Prothrombin time (test code = 5902-2) 14.9 11.5- 14.5 sec H INR (test code = 69327-2) 1.2 Th e International Normalized Ratio (INR) is a therapeutic monitoring tool for patients who are stable on oral anticoagulant therapy. An INR of 2.0-3.0 is suggested for deep vein thrombosis/pulmonary embolism. Lab Interpretation (test code = 56927-7) [facility]normal [facility] Preliminary Interpretation - Not an [id number] 17:13:36* Test Item Value Reference Range Interpretation Comments RIMA (test code = RIMA) Farshad Escalante MD 04/30/2020 9:18 [facility] ED Preliminary Interpretation - Not an OrderPerformed by: Farshad Escalante MDAuthorized by: Farshad Escalante MD ECG reviewed by ED Physician in the absence of a shoe lay out planner: yes Interpretation: Interpretation: abnormal Rate: ECG rate: 104 ECG rate assessment: tachycardic Rhythm: Rhythm: sinus tachycardia Ectopy: Ectopy: none QRS: QRS axis: Normal QRS intervals: NormalConduction: Conduction: abnormal Abnormal conduction: LAFB ST segments: ST segments: NormalT waves: T waves: normal Lab Interpretation (test code = 35856-2) Abnormal [place] [facility] [id number] 17:13:36Farshad Escalante MD 04/30/2020 9:18 AMCritical CarePerformed by: Ofe Lemus, PAAuthorized by: Farshad Escalante MD Critical care [...] for this patient from another provide r.: [facility] [place] [facility] [id number] 02:00:00* Test Item Value Reference Range Interpretation [...] NONE SEEN /HPF NONE SEEN CBC W/AUTO [id number] 08:49:00* Test Item Value Reference Range Interpretation [...] (test code = MDIFF) NO BASIC METABOLIC [id number] 08:04:00* Test Item Value Reference Range Interpretation [...] code = CA) 8.7 mg/dL 8.0-10.5 N [id number] 08:02:00* Test Item Value Reference Range Interpretation Comments GLUBED (test code = GLUBED) 142 MG/DL 70-110 H Performed by certified shot peen operator at [facility] [id number] 21:22:00* Test Item Value Reference Range Interpretation Comments GLUBED (test code = GLUBED) 185 MG/DL 70-110 H Performed by certified shot peen operator at [facility] [id number] 18:01:00* Test Item Value Reference Range Interpretation Comments GLUBED (test code = GLUBED) 160 MG/DL 70-110 H Performed by certified shot peen operator at [facility] - MRI UP EX W WO CONT [id number] 16:54:00 FAX: Cecil Gramajo MD [phone] [place]: [address]: ADM Name: SILVER DAVENPORT [facility] : [birth year] Age/S: 63/M [address] [place] [address] Unit #: [id number] Loc: [address] [place] [address] Phys: Cecil Deleon MD Acct: [id number] Dis Date: Status: ADM IN PHONE #: [phone] Exam Date: 09/12/2019 1244 FAX #: [phone] Reason: LEFT HAND ULCER, CELLULITIIS, DM EXAMS: CPT CODE: [id number] [place] [address] MRI left hand with and without con [...] SG-H PAGE 1 Signed Report (CONTINUED) FAX: N Cecil Deleon MD [phone] [place]: St: ADM Name: SILVER MONTOYA [facility] : 1955 Age/S: 63/M [address] Unit #: [id number] Loc: G.M127 [place], [place] [address] Phys: Cecil Deleon MD Acct: [id number] Dis Date: Status: ADM IN PHONE #: [phone] Exam Date: 09/12/2019 FAX #: [phone] Reason: LEFT HAND ULCER, CELLULITI IS, DM EXAMS: CP T CODE: [id number] [place] [address] <Continued> at 3976 Reported and signed by: Alfredo Lindsey M.D. CC: Cecil Deleon MD Technologist: Otis Lemus, RT(R)(CT)(MR) Trnscrd Date/Time/By: 09/12/2019 (834) : By: [email or web address] Orig Print D/T: S: 09/12/2019 (7483) PAGE 2 Signed Report [id number] 13:19:00* Test Item Value Reference Range Interpretation Comments GLUBED (test code = GLUBED) 160 MG/DL 70-110 H Performed by certified shot peen operator at [facility] [id number] 08:56:00* Test Item Value Reference Range Interpretation Comments GLUBED (test code = GLUBED) 151 MG/DL 70-110 H Performed by certified shot peen operator at [facility] LIPID PROFILE (CORONARY RISK)2019-09-12 08:14:00* [...] = LDL) 98 mg/dL 0-100 N <100 [id number] NEAR OPTIMAL/ABOVE [id number] HIGH>WN=883 VERY HIGH*Guidelines provided by the National Cholesterol EducationProgram Adult Treatment Panel III CBC W/AUTO [id number] 08:06:00* Test Item Value Reference Range Interpretation [...] DIFF REQUIRED (test code = MDIFF) NO [id number] 22:22:00* Test Item Value Reference Range Interpretation Comments GLUBED (test code = GLUBED) 167 MG/DL 70-110 H Performed by certified shot peen operator at [facility] [id number] 17:02:00* Test Item Value Reference Range Interpretation Comments GLUBED (test code = GLUBED) 281 MG/DL 70-110 H Performed by certified shot peen operator at [facility] URINALYSIS [id number] 16:54:00* Test Item Value Reference Range Interpretation [...] TRACE /HPF NONE SEEN TSH REFLEX TO [id number] 15:50:00* Test Item Value Reference Range Interpretation [...] concentrations <2 ng/mL are obtained. LACTIC ACID [id number] 08:56:00* Test Item Value Reference Range Interpretation Comments LACTIC ACID POC (test code = LACTP) 1.1 MMOL/L 0.90-1.70 N Performed by certified shot peen operator at [facility] C REACTIVE [id number] 08:18:00* Test Item Value Reference Range Interpretation Comments C REACTIVE PROTEIN (test code = CRP) 151.0 MG/L 0.0-2.9 H COMPREHENSIVE METABOLIC [id number] 08:16:00* Test Item Value Reference Range Interpretation [...] TOTAL (test code = ALKP) IUnit/L 20-125 [id number] 08:16:00* Test Item Value Reference Range Interpretation Comments TROPONIN-I (test code = TROPI) < 0.015 ng/mL 0.000-0.045 N Negative: <= 0.045 Positive: >= 0.046 Correlation with serial results, other cardiac markers andclinical findings is necessary to determine the clinicalsignificance of this result. Results using different methodologies should not be comparedto one another as quantitative results may vary by method. COMPREHENSIVE METABOLIC [id number] 08:16:00* Test Item Value Reference Range Interpretation [...] code = ALKP) 156 IUnit/L 20-125 H [id number] 08:16:00* Test Item Value Reference Range Interpretation Comments TROPONIN-I (test code = TROPI) < 0.015 ng/mL 0.000-0.045 N Negative: <= 0.045 Positive: >= 0.046 Correlation with serial results, other cardiac markers andclinical findings is necessary to determine the clinicalsignificance of this result. Results using different methodologies should not be comparedto one another as quantitative results may vary by method. CBC W/AUTO [id number] 08:00:00* Test Item Value Reference Range Interpretation [...]
--- OUTSIDE RECORDS SUMMARY | 2020-08-14 21:38 | XMS REPORT | Clinical Summary ---
Author Author [facility] Address Unknown Phone Unavailable Care Team Providers Care Log Check Scaler Name Role Phone Ronald Seay MD PCP [phone] Allergies No Known Active Allergies Medications End [...] hyperplasia with lower urinary tract symptoms 04/19/2020 [facility] General Surgery - Encounter 04/27/2020 [...] ABCESS CULTURES; Surgeon: Marilyn Dobbs MD; Location: [facility] MAIN OR; Service: Urolog y; Laterality: N/A; [...] PRELIMINARY Routine 04/19/2020 INTERPRETATION 5:13 PM CDT [place] CRITICAL CARE, E/M Routine 04/19/2020 30-74 MINUTES [...] glucose 204 (H) 65 - 99 mg/dL [facility]ICK Comment: SPIRITISM Construction Safety Consultant Name: [facility] Device ID: [id number] Chartable: [facility] Notified RN Specimen Blood Performing Organization Address City/State/ZIP Code P kelly Number [facility] DEPARTMENT OF [address] [place] [address] PATHOLOGY AND GENOMIC MEDICINE [facility] SPIRITISM [address] [place] [address] * CBC with platelet and differential (04/27/2020 4:36 AM CDT) Only the most recent of 10 results within the time period is included. [facility] WBC 9.93 4.50 - 11.00 k/uL [facility] RBC 3.43 (L) 4.40 - 6.00 m/uL [facility] HGB 8.4 (L) 14.0 - 18.0 g/dL [facility] HCT 27.4 (L) 41.0 - 51.0 % [facility] MCV 79.9 (L) 82.0 - 100.0 fL [facility] MCH 24.5 (L) 27.0 - 34.0 pg [facility] MCHC 30.7 (L) 31.0 - 37.0 g/dL [facility] RDW - SD 39.2 37.0 - 55.0 fL [facility] MPV 8.9 8.8 - 13.2 fL [facility] Platelet count 238 150 - 400 k/uL [facility] Nucleated RBC 0.00 /100 WBC [facility] Neutrophils 65.5 39.0 - 69.0 % [facility] Lymphocytes 19.4 (L) 25.0 - 45.0 % [facility] Monocytes 10.1 (H) 0.0 - 10.0 % [facility] Eosinophils 3.1 0.0 - 5.0 % [facility] Basophils 0.4 0.0 - 1.0 % [facility] Immature 1.5 (H)Comment: "Immature 0.0 - 1.0 % [facility] granulocytes granulocytes" (promyelocytes, METHOD IST myelocytes, metamyelocytes) HOSPITAL Specimen Blood Performing Organization Address City/State/ZIP Code P kelly Number [facility] DEPARTMENT OF [address] [place] [address] PATHOLOGY AND GENOMIC MEDICINE [address] * Estimated GFR (04/27/2020 4:00 AM CDT) Only the most recent of 10 results within the time period is included. [facility] Estimated GFR 69 mL/min/1.73 m2 [facility]ICK Comment: [facility] HOSPITAL Interpretation G1 >=90 Normal or high [...] published in 2014. Specimen Performing Organization Address City/[facility] P kelly Number [facility] DEPARTMENT OF [address] [place] [address] PATHOLOGY AND GENOMIC MEDICINE [address] * Basic metabolic panel (04/27/2020 4:00 AM CDT) Only the most recent of 8 results within the time period is included. Pathologist [facility] Sodium 145 135 - 148 mEq/L [facility] Potassium 3.6 3.5 - 5.0 mEq/L [facility] Chloride 107 98 - 112 mEq/L [facility] CO2 27 24 - 31 mEq/L [facility] Anion gap 11@ANIO 7 - 15 mEq/L [facility] BUN 12 8 - 23 mg/dL [facility] Creatinine 1.13 0.70 - 1.20 mg/dL [facility] Glucose 117 (H) 65 - 99 mg/dL [facility] Calcium 9.1 8.8 - 10.2 mg/dL [facility] Specimen Blood Performing Organization Address City/[facility] P kelly Number [facility] [place] [address] PATHOLOGY AND [facility] MEDICINE [address] * Vancomycin level, trough (04/25/2020 5:30 PM CDT) Only the most recent of 2 results within the time period is included. Pathologist [facility] Vancomycin, 14.1 10.0 - 20.0 ug/mL [facility] trough Comment: SPIRITISM Therapeutic Ranges: HOSPITAL Peak 30.0 - 40.0 ug/mL Trough 10.0 - 20.0 ug/mL Specimen Serum Performing Organization Address City/[facility] P kelly Number [facility] [place] [address] PATHOLOGY AND GENOMIC MEDICINE [address] * Urine culture (04/24/2020 11:05 AM CDT) Only the most recent of 2 results within the time period is included. Pathologist [facility] Urine culture Staphylococcus aureus [facility] isolate 10-5 cfu/ml SPIRITISM susceptibility to [facility] This organism is Methicillin Resistant. (A) Comment: [...] mcg/mL: Susceptible Staphylococcus aureus Performing Organization Address City/[facility]/ZIP Code P kelly Number [facility] [place] [address] PATHOLOGY AND [facility] MEDICINE [address] * Fungus smear (04/24/2020 9:13 AM CDT) Fungus smear No fungi observed. [facility]ICK Comment: SPIRITISM Specimen Information HOSPITAL Specimen Source: Abscess Specimen Site: Prostate: drainage Specimen Abscess Performing Organization Address City/[facility] P kelly Number [facility] [place] [address] PATHOLOGY AND [facility] MEDICINE [address] * AFB culture (04/24/2020 9:13 AM CDT) AFB culture No growth after 6 weeks of [facility] isolate incubation. SPIRITISM Comment: HOSPITAL Specimen Information Specimen Source: Abscess Specimen Site: Prostate: drainage Specimen Drainage - Prostate Performing Organization Address City/[facility]/ZIP Code P kelly Number [facility] [place] [address] PATHOLOGY AND [facility] MEDICINE [address] * Aerobic culture (04/24/2020 9:13 AM CDT) Aerobic culture Staphylococcus aureus NADINE isolate Occasional SPIRITISM susceptibility to follow HOSPITAL This organism is [...] mcg/mL: Susceptible Staphylococcus aureus Performing Organization Address [facility]/ZIP Code P kelly Number [facility] [place] [address] PATHOLOGY AND GENOMIC MEDICINE [place] SPIRITISM [address] [place] [address] * Gram stain (04/24/2020 9:13 AM CDT) Gram stain Occasional WBC's MCCOY isolate Moderate Gram positive cocci METHOD[facility] T in [facility] HOSPITAL Moderate Gram positive cocci in clusters Comment: Specimen Information Specimen Source: Abscess Specimen Site: Prostate: drainage Specimen Abscess Performing Organization Address [facility] P kelly Number [facility] [place] [address] PATHOLOGY AND GENOMIC MEDICINE [place] SPIRITISM [address] [place] [address] * AFB stain (04/24/2020 9:13 AM CDT) AFB stain No acid fast bacilli (AFB) MCCOY seen. SPIRITISM Comment: HOSPITAL Specimen Information Specimen Source: Abscess Specimen Site: Prostate: drainage Specimen Abscess Performing Organization Address City/[facility]/ZIP [facility] P kelly Number [facility] [place] [address] PATHOLOGY AND GENOMIC MEDICINE [place] SPIRITISM [address] [place] [address] * Fungus culture (04/24/2020 9:13 AM CDT) Fungus culture No growth after 4 weeks of MCCOY isolate incubation. SPIRITISM Comment: HOSPITAL Specimen Information Specimen Source: Abscess Specimen Site: Prostate: drainage Specimen Drainage - Prostate Performing Organization Address City/[facility]/ZIP Code P kelly Number [facility] DEPARTMENT OF [address] [place] [address] PATHOLOGY AND GENOMIC MEDICINE [place] SPIRITISM [address] [place] [address] * Anaerobic culture (04/24/2020 9:13 AM CDT) Only the most recent of 2 results within the time period is included. Anaerobic No anaerobic organisms [facility] culture isolate isolated. SPIRITISM Comment: HOSPITAL Specimen Information Specimen Source: Abscess Specimen Site: Prostate: drainage Specimen Drainage - Prostate Performing Organization Address City/[facility] Code P kelly Number [facility] [place] [address] PATHOLOGY AND GENOMIC MEDICINE [place] SPIRITISM [address] [place] [address] * Airway (04/24/2020 8:16 AM CDT) Narrative Performed At Macy Dejesus CRNA 0 8:17 AM Airway Performed by: Macy Dejesus CRNA Authorized by: Raymundo Ureña DO Location: OR Resident/CLERICAL TRANSCRIBER/AA: Macy Dejesus CRNA Preoxygenated with 100% O2: Yes C-spine Precautions Maintained Througho ut: Yes Mask Ventilation: Not attempted Final Airway Type: Endotracheal airwa y Final Endotracheal Airway: ETT Technique Used: Direct laryngoscopy Blade Type: [place] Laryngoscope Blade/Videolaryngoscope Bl jhonny Size: 2 ETT Size (mm): 8.0 Measured [...] the lumen is decompressed by a Plummer. [id number] Procedure Note Hm Interface, Radiology Results Incoming [...] the lumen is decompressed by a Plummer. [id number] Performing Organization Address City/State/ZIP Code P kelly Number [facility] [address] [place] [address] * HIV Ag/Ab combination (04/20/2020 5:15 AM CDT) HIV Ag/Ab Non-reactive Non-reactive [facility] Specimen Blood Performing Organization Address City/State/ZIP Code P kelly Number [facility] DEPARTMENT OF [address] [place] [address] PATHOLOGY AND GENOMIC MEDICINE [address] * Sodium level, urine, random (04/20/2020 5:15 AM CDT) Sodium, urine, 99 mEq/L [facility] random [facility] Specimen Urine Performing Organization Address City/[facility]/ZIP Code P kelly Number [facility] [place] [address] PATHOLOGY AND GENOMIC MEDICINE [address] * Osmolality, urine (04/20/2020 5:15 AM CDT) Osmolality, 408 50 - 1,400 mOsm/kg [facility] urine [facility] Specimen Urine Performing Organization Address City/[facility] P kelly Number [facility] [place] [address] PATHOLOGY AND [facility] MEDICINE [address] * Creatinine level, urine, random (04/20/2020 5:15 AM CDT) Creatinine, 52 mg/dL [facility] urine, random [facility] Specimen Urine Performing Organization Address City/[facility]/ZIP [facility] P kelly Number [facility] [place] [address] PATHOLOGY AND GENOMIC MEDICINE [address] * Magnesium level (04/20/2020 5:15 AM CDT) Magnesium 1.9 1.6 - 2.4 mg/dL [facility] Specimen Blood Performing Organization Address City/[facility]/ZIP Code P kelly Number [facility] DEPARTMENT OF [address] [place] [address] PATHOLOGY AND GENOMIC MEDICINE [address] * Lactic acid level (04/20/2020 5:15 AM CDT) Only the most recent of 2 results within the time period is included. Lactic acid 1.6 0.5 - 2.2 mmol/L [facility] Specimen Blood Performing Organization Address City/[facility]/ZIP Code P kelly Number [facility] DEPARTMENT OF [address] [place] [address] PATHOLOGY AND GENOMIC MEDICINE [address] * Lactic acid level, SEPSIS - Now and repeat 2x every 3 hours (04/19/2020 11:40 PM CDT) Only the most recent of 2 results within the time period is included. Lactic acid 1.6 0.5 - 2.2 mmol/L [facility] Specimen Blood Performing Organization Address [facility] P kelly Number [facility] [place] [address] PATHOLOGY AND GENOMIC MEDICINE [address] * Troponin (04/19/2020 11:40 PM CDT) Only the most recent of 3 results within the time period is included. Troponin <0.006 0.000 - 0.040 ng/mL [facility] Comment: SPIRITISM In patients suspected of HOSPITAL having a [...] 0.020 ng/mL Specimen Blood Performing Organization Address City/[facility]/ZIP Code P kelly Number [place] [id number] PATHOLOGY AND GENOMIC MEDICINE [place] [id number] HOSPITAL * COVID-19 qualitative PCR (04/19/2020 9:35 PM CDT) Only the most recent of 2 results within the time period is included. Interpretation Negative results do not MCCOY preclude 2019-nCoV infection SPIRITISM and should not be used as the HOSPITAL sole basis for treatment or other patient management decisions. Negative results must be combined with clinical observations, patient history, and epidemiological information. COVID-19 Not-Detected Not-Detected [facility] qualitative PCR SPIRITISM result HOSPITAL COVID-19 See link below for PDF Lab [facility] qualitative PCR ReportComment: Case Number: SPIRITISM [id number] HOSPITAL Specimen Nasopharyngeal swab Performing Organization Address [facility] P kelly Number [facility] [place] [address] PATHOLOGY AND GENOMIC MEDICINE [address] * Urinalysis screen and microscopy, with reflex to culture (04/19/2020 7:20 PM CDT) Specimen site Clean catch [facility] Color, UA Yellow [facility] Appearance, UA Hazy [facility] Specific 1.026 1.001 - 1.035 [facility] pH, UA 6.0 5.0 - 8.5 [facility] Protein, UA 2+ (A) Negative [facility] Glucose, UA 3+ (A) Negative [facility] Ketones, UA Negative Negative [facility] Bilirubin, UA Negative Negative [facility] Blood, UA Negative Negative [facility] Nitrite, UA Negative Negative [facility] Urobilinogen, <2.0 <2.0 [facility] Leukocyte Trace (A) Negative [facility] WBC, UA 9 (H) 0 - 1 /HPF [facility] RBC, UA 3 0 - 5 /HPF [facility] Bacteria, UA Few None seen [facility] WBC clumps, UA Few (A) [facility] Yeast, UA None seen [facility] Yeast with None seen [facility] Hyaline casts, 11 /LPF [facility] Specimen Urine Performing Organization Address [facility] P kelly Number [facility] [place] [address] PATHOLOGY AND GENOMIC MEDICINE [place]ERR[place] SPIRITISM [address] [place] [address] HOS[address]ITAL * CT Angiogram Pe Chest (04/19/2020 [...] MIP images were created by a dedicated technologist development at the scanner and archive d in [...] abdomen and pelvis for further evaluati on. [facility]-[id number] Procedure Note Interface, Radiology Results Incoming - [...] MIP images were created by a dedicated technologist development at the scanner and archived in PACS. [...] the abdomen and pelvis for further evaluation. [facility]-[id number] Performing Organization Address City/State/ZIP Code P kelly Number [facility] [address] [place] [address] * CT Abdomen Pelvis W Contrast (04/19/2020 [...] Organization Address City/State/ZIP Code P kelly Number [facility] [address] [place] [address] * Venous blood gas (04/19/2020 6:35 PM CDT) pH, venous 7.35 7.32 - 7.42 [facility] pCO2, venous 48 45 - 51 mmHg [facility] pO2, venous 28 25 - 40 mmHg [facility] Base excess, 1 -2 - 2 meq/L [facility] O2 saturation, 54 40 - 70 % [facility] Bicarbonate, 26.0 21.0 - 28.0 mmol/L [facility] Specimen Blood Performing Organization Address City/[facility] P kelly Number [facility] [place] [address] PATHOLOGY [address] * Beta hydroxybutyrate (04/19/2020 6:30 PM CDT) [facility] Beta 0.07 0.02 - 0.27 mmol/L [facility] hydroxybutyrate [facility] Specimen Serum Performing Organization Address [facility] P kelly Number [facility] [place] [address] * Blood culture, aerobic & anaerobic (04/19/2020 5:30 PM CDT) Only the most recent of 2 results within the time period is included. [facility] Blood culture No growth after 5 days of [facility]ERRICK isolate incubation. SPIRITISM Comment: HOSPITAL Specimen Information Specimen Source: Blood Specimen Site: Forearm, right Specimen Blood - Forearm, right Performing Organization Address [facility] P kelly Number [facility] DEPARTMENT [address] * Partial thromboplastin time, activated (04/19/2020 5:30 PM CDT) [facility] PTT 42.3 (H) 23.0 - 36.0 sec [facility]ICK Comment: SPIRITISM PTT therapeutic range for HOSPITAL unfractionated heparin is 61.0-112.0 seconds which corresponds to Anti-Xa 0.3-0.7 U/ml. Specimen Blood Performing Organization Address [facility] P kelly Number [facility] [place] [address] * Prothrombin time with INR (04/19/2020 5:30 PM CDT) [facility] Prothrombin 14.9 (H) 11.5 - 14.5 sec [facility] time [facility] INR 1.2 [facility]ICK Comment: SPIRITISM The International Normalized HOSPITAL Ratio (INR) is a therapeutic monitoring tool for patients who are stable on oral anticoagulant therapy. An INR of 2.0-3.0 is suggested for deep vein thrombosis/pulmonary embolism. Specimen Blood Performing Organization Address [facility]/State/ZIP Code P kelly Number [facility] DEPARTMENT OF [address] [place] [address] PATHOLOGY AND GENOMIC MEDICINE [address] * B natriuretic peptide (04/19/2020 5:30 PM CDT) BNP 11 0 - 100 pg/mL [facility] Specimen Blood Performing Organization Address City/State/ZIP [facility] P kelly Number [facility] DEPARTMENT OF [address] [place] [address] PATHOLOGY AND GENOMIC MEDICINE [address] * Creatine kinase, total (CPK) (04/19/2020 5:30 PM CDT) Creatine kinase 25 (L) 39 - 308 U/L [facility] Specimen Blood Performing Organization Address City/[facility] P kelly Number [facility] DEPARTMENT OF [address] [place] [address] PATHOLOGY AND GENOMIC MEDICINE [address] * Comprehensive metabolic panel (04/19/2020 5:30 PM CDT) Only the most recent of 2 results within the time period is included. Sodium 130 (L) 135 - 148 mEq/L [facility] Potassium 5.1 (H) 3.5 - 5.0 mEq/L [facility] Chloride 90 (L) 98 - 112 mEq/L [facility] CO2 23 (L) 24 - 31 mEq/L [facility] Anion gap 17@ANIO (H) 7 - 15 mEq/L [facility] BUN 26 (H) 8 - 23 mg/dL [facility] Creatinine 1.41 (H) 0.70 - 1.20 mg/dL [facility] Glucose 380 (H) 65 - 99 mg/dL [facility] Calcium 10.5 (H) 8.8 - 10.2 mg/dL [facility] Protein 8.6 (H) 6.3 - 8.3 g/dL [facility] Comment: [facility] 4.6-7.0 g/dL 1 week 4.4-7.6 g/dL 7 months-1year 5.1-7.3 g/dL 1-2 years 5.6-7.5 g/dL >3 years 6.0-8.0 g/dL 18-150 6.3-8.3 g/dL Albumin 3.4 (L) 3.5 - 5.0 g/dL [facility] A/G ratio 0.7 0.7 - 3.8 [facility] Alkaline 225 (H) 40 - 129 U/L [facility] phosphatase [facility] AST 18 10 - 50 U/L [facility] ALT 14 5 - 50 U/L [facility] Total bilirubin 0.4 0.0 - 1.2 mg/dL [facility] Specimen Blood Performing Organization Address City/State/ZIP Code P kelly Number [facility] DEPARTMENT OF [address] [place] [address] PATHOLOGY AND GENOMIC MEDICINE [address] * ECG ED Preliminary Interpretation - Not an Order (04/19/2020 5:13 PM CDT) Narrative Performed At Farshad Escalante MD 0 9:18 AM ECG ED Preliminary Interpretation - Not an Order Performed by: Farshad Escalante MD Authorized by: Farshad Escalante MD ECG reviewed by ED Physician in the abs ence of a seconds grader: yes Interpretation: Interpretation: abnormal Rate: ECG rate: [...] MUSE rate Atrial rate 104 [facility]USE [place] interval 166 [facility]USE QRSD interval 106 [...] Organization Address City/State/ZIP Code P kelly Number [facility] MUSE [address] [place] [address] * ECG Pre/Post Op (04/19/2020 4:17 PM CDT) Ventricular 93 [facility] MUSE rate Atrial rate 93 [facility] [place] interval 164 [facility] MUSE QRSD interval 108 [...] Code P kelly Number H MUSE [address] [place] [address] * Hemoglobin A1c (04/19/2020 3:18 PM CDT) Hemoglobin A1C 11.1 (H) 4.0 - 5.6 % [facility]ICK Comment: SPIRITISM HbA1c cutoffs for diagnosing HOSPITAL diabetes: 4.0% [...] Organization Address City/State/ZIP Code P kelly Number [facility] DEPARTMENT OF [address] [place] [address] PATHOLOGY AND GENOMIC MEDICINE [facility] SPIRITISM [address] [place] [address] HOSPITAL after 08/14/2019 Insurance Type Payer Benefit Subscriber ID Effective Phone Address Plan / Dates Group HMO/PPO [facility] [id number] 2019-P THCARE resent CHOICE/CHO ICE + Advance Directives For more information, please contact: [phone] Patient Compensation Administrator Explanation Type Date Recorded VERBAL Advance Directives, 04/19/2020 8:57 PM Living Will and Medical Power of Field C[employer] Farm[employer]
[2020-08-14] MEDS ORDERED: LEVOFLOXACIN500 MG PO (22:04)
[2020-08-14] MEDS ORDERED: LANTUS 3ML100 UNITS/ SC (22:04)
[2020-08-14] MEDS ORDERED: FLOMAX0.4 MG PO (22:04)
[2020-08-14] MEDS ORDERED: LISINOPRIL10 MG PO (22:04)
[2020-08-14] MEDS ORDERED: HYDRALAZINE HCL 20 MG/ML VIAL IV STA (22:31)
[2020-08-14] MEDS ORDERED: HYDRALAZINE HCL 20 MG/ML VIAL ONE (22:42)
--- NOTE | 2020-08-14 23:18 | NUR ---
Received report from ER nurse.
--- NOTE | 2020-08-14 23:35 | NUR ---
Patient arrived to the floor via w/c.
[2020-08-15] VITALS (10 sets, daily range): BP systolic 120–180; BP diastolic 68–83
[2020-08-15] MEDS ORDERED: DOXYCYCLINE HY100 MG PO
[2020-08-15 06:27] LABS: BASOPHILS % 0.4 % (0.0-1.0); EOSINOPHILS # (AUTO) 0.3 (0.0-0.4); HEMATOCRIT 30.7 % (38.2-49.6); HEMOGLOBIN 10.1 g/dL (14.0-18.0); LYMPHOCYTES # (AUTO) 1.5 (1.0-3.2); LYMPHOCYTES % 16.6 % (18.0-39.1); MEAN CORPUSCULAR HEMOGLOBIN 25.6 pg (28-32); MEAN CORPUSCULAR HGB CONC 32.9 g/dL (31-35); MEAN CORPUSCULAR VOLUME 77.7 fL (81-99); MONOCYTES # (AUTO) 0.9 (0.2-0.8); MONOCYTES % 9.9 % (4.4-11.3); NEUTROPHILS # (AUTO) 6.4 (2.1-6.9); NEUTROPHILS % 69.3 % (38.7-80.0); PLATELET COUNT 247 x10e3/uL (140-360); RED BLOOD COUNT 3.95 x10e6/uL (4.3-5.7); RED CELL DISTRIBUTION WIDTH 13.2 % (11.7-14.4)
--- NOTE | 2020-08-15 06:36 | NUR ---
Patient admit and physical asst completed. and patient resting quitly at this time. z
--- NOTE | 2020-08-15 07:08 | NUR ---
bedside shift report received from PM nurse. pt awake, alert, no s/s distress. Dr. Das at bedside evaluating patient; states he may do surgery on patient sometime next week.
--- NOTE | 2020-08-15 08:16 | Consultation ---
DATE OF CONSULTATION: 08/15/2020 Consultation Report REASON FOR CONSULTATION: Gangrene with osteo and a grade 4 ulcer, 4th toe right foot with the patient being an insulin-dependent diabetic. HISTORY OF PRESENT ILLNESS: This is a pleasant 64-year-old male was seen at the office, who relates his toe started turning somewhat discolored. A week before he was seen, he was referred by Dr. Fernandez. The patient was put on oral antibiotics, did not respond and his toe started becoming gangrenous. He is currently denying any history of fever, chills, nausea, or vomiting. PAST MEDICAL HISTORY: Remarkable for insulin-dependent diabetes, hypertension. PAST SURGICAL HISTORY: The patient denies. ALLERGIES: THE PATIENT DENIES. SOCIAL HISTORY: Denies any smoking, drinking, or recreational drug use, has three kids. Lives alone. FAMILY HISTORY: Noncontributory. CURRENT MEDICATIONS: Note listed in chart including IV Cefotan. REVIEW OF SYSTEMS: CARDIAC: Denies any palpitations or arrhythmias. RESPIRATORY: Denies any shortness of breath or productive cough. GASTROINTESTINAL: Denies any diarrhea or constipation. GENITOURINARY: Denies hematuria or problems voiding. VITAL SIGNS: Afebrile. Pulse rate 95, respirations 17, blood pressure 123/69, O2 saturation 100%. LABORATORY DATA: Noted. White blood cell 9.2, hemoglobin 10.1 with a platelet count of 247. Has a blood glucose of 283, dropping from 326. PODIATRIC PHYSICAL EXAMINATION: Reveals the following, VASCULATURE: Pedal pulses of both the DP and PT are palpable. NEUROLOGIC: Reveals loss of protective sensation to both lower extremities. Muscle mass is symmetrical. Muscle strength is 5/5 to all muscle groups. Has edema to the right lower extremity. DERMATOLOGIC: Reveals a gangrenous 4th toe right foot with cellulitis up to the mid foot, grade 4 ulcer proximal to the gangrenous changes at the proximal to the proximal interphalangeal joint with some drainage. ASSESSMENT: Gangrene, grade 3/4 ulceration, cellulitis with possible osteo. PLAN: We will still continue IV antibiotics. We will start local wound care. X-rays were ordered three views right foot. We will let the foot demarcate before any surgical intervention is performed. Surgery will be done sometime next week. The patient understands amputation will need to be done, level to be determined after he has at least 3 to 4 days of IV antibiotics. PEBBLES Lopez/BEATRIZ /[id number]
[2020-08-15] MEDS ORDERED: DEXTROSE 50% SYRINGE 50 ML IV PRN (09:15)
[2020-08-15] MEDS ORDERED: MAGNESIUM HYDROXIDE 30 ML UDC PO PRN (09:30)
[2020-08-15] MEDS ORDERED: GADOBENATE DIMEGLUMINE 1 ML IV ONE (09:44)
--- NOTE | 2020-08-15 10:33 | Diagnostic Imaging Report ---
Right foot, 3 views INDICATION: ^osteomyelitis ^[id number] ^[id number] Comparison: None available. Discussion: Multiple views of the right foot are negative for an acute displaced fracture or dislocation. Negative for cortical erosion or periosteal reaction. No subcutaneous emphysema is identified. Advanced degenerative change of the first interphalangeal joint is noted. Prominent plantar calcaneal spur is noted. And these a fight is noted at the insertion of the Achilles tendon posteriorly. Mild dorsal tarsal spurring is noted. A few scattered arterial vascular calcifications are noted. IMPRESSION: Negative for radiographic evidence of osteomyelitis. Consider follow-up MRI or triple phase bone scan if clinically indicated. Moderate degenerative change of the first interphalangeal joint and mild scattered degenerative changes throughout the foot as described above. Signed by: Dimas Quezada MD on 08/15/2020 10:30 AM
[2020-08-15] MEDS ORDERED: SODIUM CHLORIDE 0.45% 1,000 ML IV ONE (11:00)
--- NOTE | 2020-08-15 11:31 | History and Physical ---
PRIMARY CARE PHYSICIAN: Dr. Ronald Seay. CONTACT WORKER LITHOGRAPHY: Dr. Faraz Das. CHIEF COMPLAINT: Right fourth toe gangrene with infection, possible osteomyelitis, infected diabetic foot ulcer. HISTORY OF PRESENT ILLNESS: A 64-year-old male with diabetes. The patient's blood sugar in the 200 to 300. He is only taking Lantus at night. The patient had a one week duration of right foot first started with a bruise and then subsequent infection and then within a few day it became gangrenous with necroses. The patient apparently has infected diabetic toe ulcer on the right fourth toe associated with gangrenous and necroses. The patient is admitted for IV antibiotics. The patient seen in the emergency room and initiated on antibiotics. The patient is stable. Blood sugar in the 300. At home, the patient was only taking Lantus at night. The patient is otherwise stable. He is ambulatory. 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 The patient has no chest pain. No short of breath. No history of coronary disease. He did have vascular workup as an outpatient with Dr. Das and it was otherwise unremarkable. The patient is stable at this time. PAST MEDICAL HISTORY: Hypertension, enlarged prostate, diabetes type 2 on insulin. PAST SURGICAL HISTORY: Noncontributory. SOCIAL HISTORY: The patient does not smoke or use alcohol. No regular drug. ALLERGIES: NO KNOWN ALLERGIES. HOME MEDICATIONS: The patient is on doxycycline, Lantus, Levaquin, lisinopril and Flomax. REVIEW OF SYSTEMS: Right foot pain. Right fourth toe wet gangrene with necrosis. No chest pain. No short of breath. No abdominal pain. No numbness to the upper or lower extremity. No visual changes. PHYSICAL EXAMINATION: VITAL SIGNS: Temperature is 98, blood pressure 165/87, pulse rate is 81, respiration 18. GENERAL: The patient is not in acute distress, he is awake. HEENT: Normocephalic and atraumatic. Pupils reactive. Anicteric. NECK: Supple grossly. PULMONARY: Diminished breath sounds bilaterally without any wheezing or rales. CARDIOVASCULAR: S1, S2. Regular rate and rhythm. ABDOMEN: Soft, grossly, nontender, no distention. EXTREMITIES: Right fourth toe necroses with wet gangrene associated with infected diabetic ulcer. Pulses both side intact. No cyanosis. NEUROLOGIC: No gross focal deficit. LABORATORY DATA: Sodium is 141, potassium 4.1, chloride 105, bicarb 27, BUN is 21, creatinine 1.1, glucose 326. Lactic acid is 0.6. WBC 7.3, hemoglobin 10.3, hematocrit 32, and platelet is 286. Serology; COVID-19 PCR pending. IMAGING TESTS: X-ray showed diffuse soft tissue swelling of the hallux suggestive of cellulitis. Degenerative changes of the first interphalangeal joint and the mild subchondral erosive changes. Consider MRI without and with contrast to delineate osteomyelitis. IMPRESSION: 1. Right fourth toe infected toe ulcer with wet gangrene and necrosis. 2. Infected diabetic foot ulcer. 3. Uncontrolled diabetes type 2. 4. Baseline hypertension. PLAN: IV Zosyn and vancomycin, adjusted antibiotics. Insulin sliding scale coverage. Resume home medication. We will start the patient on Humalog 5 units before meals. Insulin sliding scale. Check hemoglobin A1c and also thyroid function test. Continue to monitor the patient closely. We will give the patient Lovenox for DVT prophylaxis. MD CASIMIRO Antonio/MODL /[id number]
--- NOTE | 2020-08-15 11:51 | Diagnostic Imaging Report ---
TECHNIQUE: Magnetic resonance imaging of the RIGHT foot was performed WITH and WITHOUT injected contrast. Contrast: 17mL of Multihance HISTORY: Infection, foot osteomyelitis COMPARISON: Right foot radiographs 08/15/2020 and 08/14/2020 DISCUSSION: Bone: Bone marrow edema with T1 hypointense signal and diffuse enhancement throughout the proximal phalanx of the fourth digit, consistent with osteomyelitis. Adjacent T1 hypointense signal throughout the middle and distal phalanges of the fourth digit with lack of enhancement in the bones and surrounding soft tissues, may be related to gangrenous necrosis. No additional acute osseous abnormalities or suspicious bone marrow signal changes. Joints: No joint malalignment or dislocation. No joint effusions. Advanced degenerative changes at the first toe interphalangeal joint. Muscles/Tendons: Mild edema within the distal aspect of the intrinsic foot musculature extending from the fourth digit, likely represents reactive changes. Visualized flexor and extensor tendons appear grossly intact. Soft Tissues: Soft tissue thinning with questionable exposed bone at the distal phalanx of the fourth toe. Associated skin thickening and soft tissue edema of the fourth toe, may represent cellulitis and/or reactive changes. Poor contrast enhancement noted within the fourth digit soft tissues which extends along the plantar soft tissues at the level of the MTP joints, may represent callus/scarring or early ischemic changes. Focal edema and enhancement within the plantar soft tissues underlying the head of the first metatarsal, may represent early inflammatory phlegmon from developing ulcer. IMPRESSION: 1. Osteomyelitis of the fourth toe proximal phalanx. 2. Associated questionable exposed bone at the distal fourth toe with poor contrast enhancement in the distal/middle phalanges and surrounding soft tissues, concerning for gangrenous necrosis. 3. Poor contrast enhancement along the plantar soft tissues underlying the MTP joints, may represent callus/scarring or early ischemic changes. 4. Focal plantar soft tissue edema and enhancement underlying the head of the first metatarsal, may represent early inflammation from developing ulcer. Signed by: Dr. Eros Warren M.D. on 08/15/2020 11:48 AM
[2020-08-15] MEDS: INSULIN LISPRO 100 UNIT/1 ML 3ML VIAL SQ SCH ×5 (12:12→20:42)
[2020-08-15] MEDS: PIPER-TAZ 3.375 GM 50 ML IV SCH ×3 (13:40→23:00)
[2020-08-15] MEDS: TAMSULOSIN HCL 0.4 MG CAP PO SCH (17:00)
[2020-08-15] MEDS: FAMOTIDINE 20 MG TAB PO SCH (18:23)
[2020-08-15] MEDS: ENOXAPARIN SOD INJ 40 MG/0.4 ML SYR SC SCH (18:29)
--- NOTE | 2020-08-15 19:00 | NUR ---
Received change of shift report from AM nurse. Walking rounds completed.
--- NOTE | 2020-08-15 19:28 | NUR ---
Received change of shift report from GEOVANNY fermin Walking rounds completed. Addendum: 08/15/20 at 1956 by Neelam Marquez RN duplicate
--- NOTE | 2020-08-15 19:57 | NUR ---
Patient in bed. Denies pain at this time. Dressing intact to right foot. Comtinue monitor.
[2020-08-15] MEDS: INSULIN GLARGINE 100 UNITS/ML VIAL SC SCH (20:40)
[2020-08-15] MEDS: VANCOMYCIN 1GM/NS 250 ML 250 ML IV SCH (20:47)
[2020-08-15] MEDS: HYDROCODONE/APAP 7.5MG-325MG 1 EA TAB PO PRN (20:48)
[2020-08-16] VITALS (10 sets, daily range): BP systolic 137–195; BP diastolic 68–89
--- NOTE | 2020-08-16 00:23 | NUR ---
Patient resting quitly at this time. Continue monitor.
[2020-08-16] MEDS: PIPER-TAZ 3.375 GM 50 ML IV SCH ×4 (04:13→23:00)
[2020-08-16] MEDS: INSULIN LISPRO 100 UNIT/1 ML 3ML VIAL SQ SCH ×7 (07:30→20:16)
--- NOTE | 2020-08-16 08:41 | Progress Note ---
DATE: 08/16/2020 SUBJECTIVE: The patient at bedside, doing better. Denies any history of fever, chills, nausea, or vomiting. OBJECTIVE: VITAL SIGNS: Afebrile, pulse rate 60, respirations 17, blood pressure 137/69, and O2 saturation 100%. EXTREMITIES: Right foot, getting lot less swollen, decreased cellulitis. Still cellulitis up to the mid foot. Gangrenous changes noted to the 4th toe, right foot, grade 3 ulcer proximal to that, proximal to the proximal interphalangeal joint. Pedal pulses are palpable. ASSESSMENT: Gangrene osteo with a grade 3/4 ulceration. PLAN: We will continue IV antibiotics. The patient is scheduled for surgical intervention on Wednesday of next week. We will continue with the foot demarcate. Continue IV antibiotics and local wound care. PEBBLES Lopez/BEATRIZ /[id number]
[2020-08-16] MEDS: FAMOTIDINE 20 MG TAB PO SCH ×2 (08:57→16:37)
--- NOTE | 2020-08-16 10:09 | NUR ---
Pt expressed fear and need of prayer , center specialists provided validation of feeling , provided hoe building and prayer, pt felt more peaceful and hopeful . chaplain Audrey
[2020-08-16] MEDS: HYDROCODONE/APAP 7.5MG-325MG 1 EA TAB PO PRN (12:16)
[2020-08-16] MEDS: AMLODIPINE BESYLATE 5 MG TAB PO PRN ×2 (12:52→21:06)
[2020-08-16] MEDS ORDERED: SODIUM CHLORIDE 0.9% 250ML 250 ML ONE (13:54)
[2020-08-16] MEDS: ENOXAPARIN SOD INJ 40 MG/0.4 ML SYR SC SCH (16:36)
[2020-08-16] MEDS: TAMSULOSIN HCL 0.4 MG CAP PO SCH (16:38)
--- NOTE | 2020-08-16 19:25 | NUR ---
Received change of shift report from AM nurse. Walking rounds completed.
[2020-08-16] MEDS: VANCOMYCIN 1GM/NS 250 ML 250 ML IV SCH (20:06)
[2020-08-16] MEDS: INSULIN GLARGINE 100 UNITS/ML VIAL SC SCH (20:15)
--- NOTE | 2020-08-16 23:41 | NUR ---
Patient resting in bed with no c/o at this time. Dressing to right toe dry and intact.
[2020-08-17] VITALS (10 sets, daily range): BP systolic 133–189; BP diastolic 70–87
[2020-08-17] MEDS: PIPER-TAZ 3.375 GM 50 ML IV SCH ×4 (04:19→23:55)
--- NOTE | 2020-08-17 04:27 | NUR ---
Patient resting quitly at this time. Continue monitor.
[2020-08-17] MEDS: FAMOTIDINE 20 MG TAB PO SCH ×2 (08:50→17:10)
[2020-08-17] MEDS: INSULIN LISPRO 100 UNIT/1 ML 3ML VIAL SQ SCH ×7 (09:12→21:40)
[2020-08-17] MEDS: TAMSULOSIN HCL 0.4 MG CAP PO SCH (17:00)
[2020-08-17] MEDS: ENOXAPARIN SOD INJ 40 MG/0.4 ML SYR SC SCH (17:10)
--- NOTE | 2020-08-17 19:15 | NUR ---
Patient visited in room during nursing rounds. Patient alert and oriented x3. Ambulatory in room prn. Pt denies pain or discomfort at this time. Right 4th digit black (eschared) and covered with betading wet-to-dry dressing. Pt on scheduled IV antibiotics. Call ingram within reach. Will monitor pt closely.
--- NOTE | 2020-08-17 21:00 | NUR ---
Patient took a bath and changed dressing on 4th right toe.
[2020-08-17] MEDS: INSULIN GLARGINE 100 UNITS/ML VIAL SC SCH (21:40)
[2020-08-17] MEDS ORDERED: SODIUM CHLORIDE 0.9% 250ML 250 ML ONE (21:44)
[2020-08-17] MEDS: VANCOMYCIN 1GM/NS 250 ML 250 ML IV SCH (21:45)
[2020-08-18] VITALS (8 sets, daily range): BP systolic 122–162; BP diastolic 68–85
[2020-08-18] MEDS: PIPER-TAZ 3.375 GM 50 ML IV SCH ×4 (05:10→23:50)
[2020-08-18] MEDS: FAMOTIDINE 20 MG TAB PO SCH ×2 (06:58→16:22)
--- NOTE | 2020-08-18 07:10 | NUR ---
PATIENT IS AWAKE, ALERT, AND IN STABLE CONDITION WITH NO S/S OF RESPIRATORY DISTRESS. NO PAIN VOICED. TELEMETRY APPLIED. DRESSING TO RIGHT FOOT IS CLEAN, DRY, AND INTACT. CALL LIGHT IS WITHIN REACH, PATIENT INSTRUCTED TO CALL FOR ASSISTANCE NEEDED.
[2020-08-18] MEDS: INSULIN LISPRO 100 UNIT/1 ML 3ML VIAL SQ SCH ×7 (07:30→21:35)
--- NOTE | 2020-08-18 14:00 | NUR ---
DR. STEINER ON THE FLOOR. WOUND CARE DRESSING COMPLETED TO PATIENT'S RIGHT FOOT.
--- NOTE | 2020-08-18 14:42 | Progress Note ---
DATE: 08/18/2020 SUBJECTIVE: The patient is at bedside, in good spirits. Denies any history of fever, chills, nausea, or vomiting. OBJECTIVE: VITAL SIGNS: Afebrile, pulse rate 62, respirations 20, blood pressure 143/71, and O2 saturation 99%. EXTREMITIES: Decreased cellulitis noted to the dorsal aspect right foot, still some cellulitis up to the mid proximal interphalangeal joint of 4th toe, right foot. Pedal pulses palpable. Gangrenous changes noted from the proximal interphalangeal joint distally with a grade 3 ulceration tracking down to bone proximal to that. ASSESSMENT: Cellulitis, abscess, and gangrene, right foot with osteomyelitis. PLAN: Continue local wound care. Continue diluted wet-to-dry Betadine. Continue let the foot demarcate. Definitive procedure will be done on Wednesday. PEBBLES Lopez/BEATRIZ /[id number]
--- NOTE | 2020-08-18 15:02 | Progress Note ---
DATE: 08/17/2020 SUBJECTIVE: The patient is seen at bedside. No distress. Denying any history of fever, chills, nausea, or vomiting. OBJECTIVE: VITAL SIGNS: Afebrile. Vital signs stable. EXTREMITIES: Gangrenous changes to the 4th toe, right foot, stabilizing. Decreased cellulitis to the dorsal aspect of right foot with pedal pulses palpable. Has some drainage proximal to the gangrenous area. ASSESSMENT: Gangrene, cellulitis, and osteomyelitis with a grade 3 ulceration. PLAN: Continue local wound care. Continue IV antibiotics such as Zosyn and vancomycin. We will continue to let the foot demarcate. The patient will be scheduled for definitive procedure on Wednesday. PEBBLES Lopez/BEATRIZ /[id number]
[2020-08-18] MEDS: ENOXAPARIN SOD INJ 40 MG/0.4 ML SYR SC SCH (16:22)
[2020-08-18] MEDS: TAMSULOSIN HCL 0.4 MG CAP PO SCH (16:26)
--- NOTE | 2020-08-18 19:12 | NUR ---
PATIENT IS SITTING IN THE RECLINER- IN STABLE CONDITION WITH NO S/S OF RESPIRATORY DISTRESS. NO PAIN VOICED. TELEMETRY APPLIED. DRESSING TO RIGHT FOOT/FOURTH TOE IS C/D/I. CALL LIGHT IS WITHIN REACH, PATIENT INSTRUCTED TO CALL FOR ASSISTANCE NEEDED. BEDSIDE SHIFT REPORT GIVEN TO ONCOMING NURSE.
--- NOTE | 2020-08-18 19:15 | NUR ---
Patient visited in room during nursing rounds. Patient alert and oriented x3. Ambulatory in room prn. Pt denies pain or discomfort at this time. Right 4th digit necrotic (eschared) and covered with betadine wet-to-dry dressing. Pt on scheduled IV antibiotics. Call ingram within reach. Will monitor pt closely.
[2020-08-18] MEDS: INSULIN GLARGINE 100 UNITS/ML VIAL SC SCH (21:35)
[2020-08-18] MEDS: VANCOMYCIN 1GM/NS 250 ML 250 ML IV SCH (21:38)
[2020-08-19] VITALS (10 sets, daily range): BP systolic 115–182; BP diastolic 59–81
[2020-08-19] MEDS: PIPER-TAZ 3.375 GM 50 ML IV SCH ×4 (04:30→22:00)
[2020-08-19] MEDS ORDERED: SODIUM CHLORIDE 0.9% 250ML 250 ML ONE (07:26)
[2020-08-19] MEDS: INSULIN LISPRO 100 UNIT/1 ML 3ML VIAL SQ SCH ×7 (07:30→20:51)
[2020-08-19] MEDS: FAMOTIDINE 20 MG TAB PO SCH ×2 (08:53→17:41)
--- NOTE | 2020-08-19 13:47 | Progress Note ---
DATE: 08/19/2020 SUBJECTIVE: The patient is seen at bedside. No distress. Denies any history of fever, chills, nausea, vomiting, shortness of breath or productive cough. OBJECTIVE: VITAL SIGNS: Afebrile, pulse rate 60, respirations 18, blood pressure 115/59, and O2 saturation 97%. EXTREMITIES: Has gangrenous changes with cellulitis up to the mid foot, right foot with gangrene 4th toe with a grade 3/4 ulceration proximal to the gangrene and some foul smell present. LABORATORY DATA: Noted. ASSESSMENT: Cellulitis and osteomyelitis with abscess, grade 4 ulcer, right foot. PLAN: The patient will be taken for surgical intervention tomorrow. Surgery will consist of I and D of abscess, amputation, 4th toe with rotational flap closure, a more proximal amputation may need to be done if not responsive. The patient is aware of intraoperative findings. Depending on intraoperative findings, a more proximal amputation may need to be done. We will continue IV antibiotics and local wound care such as Zosyn and vancomycin and diluted wet-to-dry. The patient will be scheduled tomorrow morning. N.p.o. after midnight tonight. No guarantees or warrantees were given. PEBBLES Lopez/BEATRIZ /[id number]
--- NOTE | 2020-08-19 16:30 | NUR ---
Patient had sliding scale insulin 6 units lisinopril for blood sugar of 181
[2020-08-19] MEDS: TAMSULOSIN HCL 0.4 MG CAP PO SCH (17:00)
[2020-08-19] MEDS ORDERED: HYDRALAZINE HCL 20 MG/ML VIAL IV PRN (17:30)
[2020-08-19] MEDS ORDERED: DEXTROSE 50% SYRINGE 50 ML IV PRN (17:30)
[2020-08-19] MEDS ORDERED: DOCUSATE SODIUM 100 MG CAP PO PRN (17:30)
[2020-08-19] MEDS ORDERED: ALBUTEROL/IPRATROPIUM 3 ML NEB NEB PRN (17:30)
[2020-08-19] MEDS ORDERED: BENZONATATE 100 MG CAP PO PRN (17:30)
[2020-08-19] MEDS ORDERED: ACETAMINOPHEN 325 MG TAB PO PRN (17:30)
[2020-08-19] MEDS ORDERED: POLYETHYLENE GLYCOL 3350 17 GM PACK PO PRN (17:30)
[2020-08-19] MEDS ORDERED: NIFEDIPINE CR 30 MG TAB PO SCH (17:45)
[2020-08-19] MEDS: AMLODIPINE BESYLATE 5 MG TAB PO PRN (17:45)
[2020-08-19] MEDS: ENOXAPARIN SOD INJ 40 MG/0.4 ML SYR SC SCH (17:46)
--- NOTE | 2020-08-19 18:12 | NUR ---
Nutrition Screen Note RD Recommendation for Physician: -Recommend diabetic/cardiac diet Plan of Care: RD following, monitoring for tolerance and adequacy Nutrition reason for involvement: length of stay Primary Diagnose(s): right foot osteomyelitis PMH: hypertension, enlarged prostate, diabetes type 2 on insulin. Ht: 70 in Wt:180 lb BMI: 25.8 kg/m2 IBW:[address] Assessment: (08/19/20) Chart reviewed. Labs and meds reviewed. Pt is a 64 year old male admitted with right foot osteomyelitis. Pt reports a good appetite with >50% meal intake. 75-100% meal intake is recorded in chart. Pt was unsure of any weight changes and mentioned he usually weighs 180 lbs. No N/V/D/C or chewing/swallowing issues. Pt declined the need for diet education. Will continue to monitor. Current Diet: cardiac Malnutrition Evaluation (08/19/20) The patient does not meet criteria for a specified degree of malnutrition at this time. Will re-evaluate at follow-up as appropriate. Diet Education Needs Assessment: Pt declined the need for diet education Nutrition Care Level: low Signed: Lily Reina, RD, LD
--- NOTE | 2020-08-19 18:43 | Progress Note ---
DATE: 08/19/2020 Medicine Progress Note I am covering for Dr. De La Trore. SUBJECTIVE: The patient was admitted for underlying osteomyelitis of the right foot, 4th digit and he is scheduled for Podiatry surgery tomorrow to get his toe amputated. He is currently on antibiotics. No overnight events. PHYSICAL EXAMINATION: VITAL SIGNS: Temperature is 97.9, pulse 70, respiratory rate is 18, blood pressure 116/78, and pulse ox 100% on room air. GENERAL: Not in acute distress. Alert and oriented x3. Cooperative on examination. HEENT: Head; normocephalic, atraumatic. Eyes; pupils are equal, round, and reactive to light bilaterally. Extraocular movements intact bilaterally. Throat; no evidence of erythema or exudates in the posterior pharynx. Has poor dentition. NECK: Supple. Good range of motion. PULMONARY: Clear to auscultation bilaterally. No wheezing, no rales, no rhonchi, no crackles appreciated. CARDIOVASCULAR: Positive S1 and S2. No murmurs, rubs, or gallops appreciated. ABDOMEN: Soft, nondistended, and nontender to palpation. Bowel sounds present. MUSCULOSKELETAL: Right foot 4th digit, bone exposed on examination. LABORATORY FINDINGS: Show white count 9.2, hemoglobin 10.1, hematocrit is 31, and platelets of 247. Chemistry reviewed, stable. IMPRESSION: 1. Right foot osteomyelitis, 4th digit with underlying cellulitis. 2. Hypertension. 3. Type 2 diabetes. 4. Peripheral neuropathy. PLAN: At this time, continue with IV antibiotic therapy. He is scheduled for amputation of the 4th toe of the right foot tomorrow by Podiatry. In fact, once the toe is removed, the patient does not need antibiotics for discharge, but may go home with oral Cipro and doxycycline with clean margins. Resume same plan of care, same antihypertensive medications. Lovenox for DVT prophylaxis. N.p.o. after midnight for procedure tomorrow. MD LEELA Watkins/MODL /[id number]
[2020-08-19] MEDS: VANCOMYCIN 1GM/NS 250 ML 250 ML IV SCH (20:48)
[2020-08-19] MEDS: INSULIN GLARGINE 100 UNITS/ML VIAL SC SCH (20:53)
[2020-08-19] MEDS ORDERED: MELATONIN 5 MG TABLET PO PRN (21:00)
[2020-08-20] VITALS (9 sets, daily range): BP systolic 110–165; BP diastolic 64–80
[2020-08-20] MEDS: PIPER-TAZ 3.375 GM 50 ML IV SCH ×4 (05:23→23:00)
[2020-08-20 05:55] LABS: BASOPHILS # (AUTO) 0.1 (0.0-0.1); BASOPHILS % 0.7 % (0.0-1.0); EOSINOPHILS # (AUTO) 0.3 (0.0-0.4); EOSINOPHILS % 4.2 % (0.0-6.0); HEMOGLOBIN 10.2 g/dL (14.0-18.0); LYMPHOCYTES # (AUTO) 2.2 (1.0-3.2); LYMPHOCYTES % 26.8 % (18.0-39.1); MEAN CORPUSCULAR HEMOGLOBIN 25.8 pg (28-32); MEAN CORPUSCULAR HGB CONC 32.9 g/dL (31-35); MEAN CORPUSCULAR VOLUME 78.3 fL (81-99); MONOCYTES # (AUTO) 0.7 (0.2-0.8); MONOCYTES % 8.3 % (4.4-11.3); NEUTROPHILS # (AUTO) 4.9 (2.1-6.9); NEUTROPHILS % 59.8 % (38.7-80.0); PLATELET COUNT 172 x10e3/uL (140-360); RED BLOOD COUNT 3.96 x10e6/uL (4.3-5.7)
[2020-08-20 06:12] LABS: ALANINE AMINOTRANSFERASE 12 IU/L (0-55); ALBUMIN 3.2 g/dL (3.5-5.0); ALKALINE PHOSPHATASE 94 IU/L (40-150); ANION GAP 10.9 mmol/L (8-16); BLOOD UREA NITROGEN 14 mg/dL (7-26); BUN/CREATININE RATIO 16 (6-25); CARBON DIOXIDE 30 mmol/L (22-29); CHLORIDE 106 mmol/L (98-107); CREATININE, SERUM 0.85 mg/dL (0.72-1.25); EST GLOMERULAR FILTRATION RATE > 60 ML/MIN (60-); GLUCOSE 87 mg/dL (74-118); PHOSPHORUS 3.8 MG/DL (2.3-4.7); POTASSIUM 3.9 mmol/L (3.5-5.1); SODIUM 143 mmol/L (136-145)
--- NOTE | 2020-08-20 07:05 | NUR ---
pt off unit for procedure.
[2020-08-20] MEDS: INSULIN LISPRO 100 UNIT/1 ML 3ML VIAL SQ SCH ×7 (07:30→21:00)
[2020-08-20] MEDS ORDERED: MUPIROCIN 2% OINT 22 GM TUBE ONE (07:40)
[2020-08-20] MEDS ORDERED: LIDOCAINE HCL 1% LOCAL INJ 20 ML VIAL ONE (07:40)
[2020-08-20] MEDS ORDERED: BETAMETHASONE DISODIUM PHOS 6 MG/ML VIAL ONE (07:40)
[2020-08-20] MEDS ORDERED: VANCOMYCIN HCL 1 GM VIAL ONE (07:40)
[2020-08-20] MEDS ORDERED: BUPIVACAINE HCL 0.5% INJ 30 ML VIAL INJ ONE (07:41)
--- NOTE | 2020-08-20 09:01 | Diagnostic Imaging Report ---
EXAM: FOOT RIGHT AP LAT DATE: 08/20/2020 8:20 AM INDICATION: Osteoarthritis, postop COMPARISON: 08/15/2020 FINDINGS: Please note overlying casting material obscures bony detail. There are postsurgical changes from interval amputation of the fourth digit. There is no evidence for acute fracture or dislocation. No focal lytic or blastic abnormalities identified. Degenerative changes noted at the first interphalangeal joint. Plantar calcaneal spurring noted. No radiopaque foreign body is appreciated. IMPRESSION: Expected post surgical changes from interval amputation of the fourth digit. Signed by: Dr. Joe Lainez MD on 08/20/2020 8:58 AM
--- NOTE | 2020-08-20 09:30 | NUR ---
pt returned to floor resp even and unlabored at this time no distress noted, no c/o pain when asked, will cont to monitor.
[2020-08-20] MEDS: LISINOPRIL 10 MG TAB PO SCH (09:39)
[2020-08-20] MEDS: FAMOTIDINE 20 MG TAB PO SCH ×2 (09:40→17:44)
--- NOTE | 2020-08-20 10:41 | Operative Report ---
DATE OF PROCEDURE: 08/20/2020 SURGEON: Faraz Das DPM PREOPERATIVE DIAGNOSES: 1. Abscess, right foot. 2. Grade 4 ulceration, right foot. 3. Gangrene, right foot. 4. Osteomyelitis, right 4th toe. POSTOPERATIVE DIAGNOSES: Confirmed. OPERATIVE PROCEDURE: 1. I and D of right foot, deep down to bone. 2. Amputation of the 4th toe, right foot. 3. Rotational flap closure, right foot. 4. Application of posterior splint. ANESTHESIA: General. HEMOSTASIS: None. PROCEDURE IN DETAIL: The patient was taken into the operating room, placed on the operating table in supine position. Following induction of general anesthesia by the anesthesiologist, the right foot was then prepped and draped in the usual aseptic manner. Procedure #1: I and D down to bone, right foot. Attention was directed to the dorsal aspect of the right 4th toe proximal to the gangrenous changes where a 3 cm incision was performed down to bone. Deep abscesses were encountered and cultured for aerobic and anaerobic growth. Necrotic tissue was removed until good viable bleeding tissue was achieved. Procedure #2: Amputation of 4th toe, right foot. Incision was then carried proximal to the 4th metatarsophalangeal joint where the toe was then disarticulated at the MPJ level and sent for pathological analysis. Further debridement of necrotic tissue was removed via sharp and blunt dissection until good viable bleeding tissue was achieved. The areas were then copiously flushed with sterile antibiotic solution and suction and all ligators or pumpers were bovied or ligated as necessary. Procedure #3: Rotational flap closure. The incision was then carried proximal medially and plantar laterally to create a plantar flap to allow for proper closure of the toe with minimal skin tension. The plantar flap was then reapproximated and utilizing 3-0 Vicryl in a horizontal mattress-type fashion, the flap was then reapproximated with as minimal skin tension as possible. Approximately 10 mL of 0.5% plain Marcaine plus 5 mL of 1% Xylocaine plain were then used to achieve local anesthesia of above-mentioned surgical area. Sterile dressing was applied. Procedure #4: Application of posterior splint. A properly placed posterior splint was then applied keeping the foot in 90 degrees with respect to the leg to try for any type of postop complications. The patient was then transferred from the OR to recovery room with vital signs stable and neurovascular status intact. No intraoperative complications were encountered. Blood loss from the surgery was minimal. The patient is to remain nonweightbearing. Continue his IV antibiotic dose for one more day and okay to be discharged tomorrow morning after antibiotic dose. The patient will be trained to use to be nonweightbearing with the aid of crutches. PEBBLES Lopez/BEATRIZ /[id number]
[2020-08-20] MEDS ORDERED: EPHEDRINE SULFATE INJ 50 MG/ML VIAL ONE (13:16)
[2020-08-20] MEDS ORDERED: PROPOFOL IV EMULSION 10 MG/ML 20 ML VIAL ONE (13:16)
[2020-08-20] MEDS ORDERED: SEVOFLURANE INHAL SOLN 250 ML PEN BTL ONE (13:16)
[2020-08-20] MEDS ORDERED: ONDANSETRON HCL INJ 2MG/ML 2ML 2 MG/ML VIAL ONE (13:16)
[2020-08-20] MEDS ORDERED: LIDOCAINE HCL 2% LOCAL INJ 5 ML SDV VIAL INJ ONE (13:16)
[2020-08-20] MEDS: TAMSULOSIN HCL 0.4 MG CAP PO SCH (17:00)
[2020-08-20] MEDS: ENOXAPARIN SOD INJ 40 MG/0.4 ML SYR SC SCH (17:44)
[2020-08-20 17:48] LABS: BASOPHILS # (AUTO) 0.1 (0.0-0.1); BASOPHILS % 0.7 % (0.0-1.0); EOSINOPHILS # (AUTO) 0.3 (0.0-0.4); EOSINOPHILS % 3.9 % (0.0-6.0); HEMATOCRIT 32.5 % (38.2-49.6); HEMOGLOBIN 10.4 g/dL (14.0-18.0); LYMPHOCYTES # (AUTO) 2.1 (1.0-3.2); LYMPHOCYTES % 26.6 % (18.0-39.1); MEAN CORPUSCULAR HEMOGLOBIN 25.2 pg (28-32); MEAN CORPUSCULAR VOLUME 78.7 fL (81-99); MONOCYTES # (AUTO) 0.6 (0.2-0.8); MONOCYTES % 7.1 % (4.4-11.3); NEUTROPHILS # (AUTO) 4.9 (2.1-6.9); NEUTROPHILS % 61.1 % (38.7-80.0); PLATELET COUNT 171 x10e3/uL (140-360); RED BLOOD COUNT 4.13 x10e6/uL (4.3-5.7); RED CELL DISTRIBUTION WIDTH 13.2 % (11.7-14.4)
--- NOTE | 2020-08-20 18:15 | Progress Note ---
DATE: 08/20/2020 Medicine Progress Note SUBJECTIVE: The patient is doing well today with no complaints. He did undergo I and D of the right foot and an amputation of the 4th toe of the right foot, performed today by Podiatry. PHYSICAL EXAMINATION: VITAL SIGNS: Temperature is 98, pulse 79, respiratory rate is 17, blood pressure 116/68, and pulse ox 100% on room air. GENERAL: Not in acute distress. Alert and oriented x3. Cooperative on examination. HEENT: Head; normocephalic, atraumatic. Eyes; pupils are equal, round, and reactive to light bilaterally. Extraocular movements intact bilaterally. Throat; no evidence of erythema or exudates in the posterior pharynx. Has poor dentition. NECK: Supple. Good range of motion. PULMONARY: Clear to auscultation bilaterally. No wheezing, no rales, no rhonchi, no crackles appreciated. CARDIOVASCULAR: Positive S1 and S2. No murmurs, rubs, or gallops appreciated. ABDOMEN: Soft, nondistended, and nontender to palpation. Bowel sounds present. MUSCULOSKELETAL: Strength is 5/5 throughout. LABORATORY DATA: White count 8.1, hemoglobin 10.2, hematocrit is 31, and platelets of 172. Chemistries reviewed, stable. MICROBIOLOGY: Blood cultures, no growth. Wound cultures are pending, no growth to date. IMAGING STUDIES: Foot x-ray shows expected postsurgical changes of the interval amputation of the 4th digit. IMPRESSION: 1. Right foot osteomyelitis, 4th digit, underlying cellulitis, status post amputation performed today, 08/20/2020, by Podiatry. 2. Hypertension. 3. Type 2 diabetes. 4. Peripheral neuropathy. PLAN: At this time, continue with IV antibiotics for now. He did undergo amputation of the 4th toe of the right foot. Continue with local wound care. Podiatry is following. Consult with ID about discharge medications for home. Likely he will be discharged on oral Cipro and doxycycline for 2 weeks with clean margins of the amputation. Continue antihypertensive medications. Lovenox for DVT prophylaxis. MD LEELA Watkins/MODL /[id number]
--- NOTE | 2020-08-20 19:10 | NUR ---
Bedside rounds completed with morning nurse. Pt alert and oriented to name, lying in bed HOB 45 degrees. Denies pain at this time. Informed to keep right foot elevated on pillow and NWB to right foot. Call light within reach. Bed low and locked.
--- NOTE | 2020-08-20 19:22 | NUR ---
report given to oncoming nurse, walking rounds complete.
[2020-08-20] MEDS: VANCOMYCIN 1GM/NS 250 ML 250 ML IV SCH (21:00)
[2020-08-20] MEDS: INSULIN GLARGINE 100 UNITS/ML VIAL SC SCH (21:00)
[2020-08-21] MEDS: PIPER-TAZ 3.375 GM 50 ML IV SCH ×3 (05:00→17:18)
[2020-08-21 05:49] VITALS: BP 119/64
--- NOTE | 2020-08-21 07:00 | NUR ---
ASSUMED CARE. PATIENT RESTING IN BED. AAOX3. ACYANOTIC. NO DISTRESS NOTED. DENIES PAIN. CALL LIGHT IN REACH. SIDE RAILS UP X2. BED LOW AND LOCKED.
[2020-08-21] MEDS: INSULIN LISPRO 100 UNIT/1 ML 3ML VIAL SQ SCH ×6 (07:30→16:24)
[2020-08-21 08:00] VITALS: BP 129/72
[2020-08-21 08:07] VITALS: BP 129/72
[2020-08-21] MEDS: FAMOTIDINE 20 MG TAB PO SCH ×2 (08:26→17:18)
[2020-08-21] MEDS: LISINOPRIL 10 MG TAB PO SCH (08:28)
[2020-08-21 11:45] VITALS: BP 156/76
[2020-08-21 16:09] VITALS: BP 142/70
[2020-08-21] MEDS: TAMSULOSIN HCL 0.4 MG CAP PO SCH (17:00)
[2020-08-21] MEDS: ENOXAPARIN SOD INJ 40 MG/0.4 ML SYR SC SCH (17:18)
--- NOTE | 2020-08-22 01:00 | Discharge Summary ---
FINAL DISCHARGE DIAGNOSES: 1. Right foot 4th digit osteomyelitis with underlying cellulitis, status post amputation, performed on 08/20/2020, by Podiatry. 2. Hypertension. 3. Type 2 diabetes. 4. Peripheral neuropathy. CONSULTANTS: ID and Podiatry. PHYSICAL EXAMINATION: VITAL SIGNS: Temperature is 98.6, pulse 70, respirations 14, blood pressure 142/70, pulse ox 100% on room air. LABORATORY DATA: Lab findings show white count 8, hemoglobin 10, hematocrit 32, platelets of 171. Chemistry; sodium 142, potassium 3.9, chloride 106, bicarb 30, anion gap of 10, BUN 14, creatinine 0.85, glucose is 87. LFTs within normal range. Total protein was 6.4 and TSH is 1.465. Troponins are negative. Toxicology none. Coronavirus not detected. MICROBIOLOGY: Blood cultures, no growth. Wound cultures were no growth. IMAGING STUDIES: Foot x-ray shows diffuse soft tissue swelling of the hallux, suggestive of cellulitis. Degenerative changes in the 1st metatarsal joint with mild subchondral erosive changes. Concern for also bilaterally remains. Another foot x-ray was performed, shows negative for radiographic evidence of osteomyelitis of the right foot. There are some degenerative changes noted. MRI of the foot shows osteomyelitis of the 4th toe proximal phalanx. Associated questionable exposed bone in the distal 4th toe with poor contrast enhancement. Possible underlying concerning gangrenous necrosis. Poor contrast enhancement along the plantar soft tissue underlying MTP joints. Focal plantar soft tissue edema and enhancement underlying the head of the 1st metatarsal may represent early inflammation from a developing ulcer. Repeat foot x-ray expected postsurgical change from interval amputation of the 4th digit. HOSPITAL COURSE: A 64-year-old male was sent in by Podiatry, Dr. Das due to worsening right foot 4th digit gangrene needing amputation, antibiotic therapy, and further treatment and care. The patient was admitted for further evaluation. I was covering for Dr. Dewey De La Torre. The patient had an underlying right 4th toe ulceration, wet gangrene, prompting IV antibiotic therapy. While here, Podiatry was consulted and the patient underwent amputation of the right 4th digit on 08/20/2020. The patient did well postoperatively with no complaints. Had very minimal pain. His diabetic medications were adjusted accordingly while here in the hospital stay. He has been maintained on broad-spectrum IV antibiotic therapy. Blood cultures were no growth. Wound cultures also showed no growth. He was discharged on oral Cipro and doxy for 2 weeks, assuming clean margins of the toe amputation. In fact I spoke with Podiatry and they recommended that the margins were very clean and recommended 2 weeks of antibiotic therapy. He was discharged on antibiotics and pain control. He was stable prior to being discharged to home. He has been cleared for discharge by all consultants. On the day of discharge, vital signs were stable, labs reviewed and stable. The patient was seen, evaluated, and examined thoroughly on the day of discharge, no other complaints. The patient verbalized understanding and agrees to plan of care to follow up as an outpatient with the primary care physician in 1 week and Podiatry in 1 week's time. He will go home and follow up within 1 week with Wound Care and he was educated about having no changing in his dressing changes until he sees Podiatry, Dr. Das in 1 week in his office. In fact, I confirmed that with the technical coordinator on the phone with the patient listening to the conversation. MEDICATIONS: See med reconciliation form. DISPOSITION: Home. CONDITION: Stable. DIET: Heart healthy. In the event of worsening symptoms, the patient was advised to come back to the ED for further evaluation. Discharge summary took greater than 35 minutes. MD LEELA Watkins/BEATRIZ /[id number]
== END 2020-08-21 19:41 | disposition home or self-care (01) | DRG 256 ==
LOC: ER 19:19 → ERHOLD 21:35 → MED/SURG3 08-15 01:04
PROVIDERS: ADMIT Internal Medicine; ATTEND Internal Medicine
PROC: 0JXQ0ZZ Transfer Right Foot Subcutaneous Tissue and Fascia, Open Approach (ICD-10-PCS; 2020-08-20)
PROC: 0QBL0ZZ Excision of Right Tarsal, Open Approach (ICD-10-PCS; 2020-08-20)
PROC: 0Y6V0Z0 Detachment at Right 4th Toe, Complete, Open Approach (ICD-10-PCS; principal; 2020-08-20 07:39)
DX: E11.52 Type 2 diabetes mellitus with diabetic peripheral angiopathy with gangrene (principal); I96 Gangrene, not elsewhere classified; M86.8X7 Other osteomyelitis, ankle and foot; L03.115 Cellulitis of right lower limb; E11.621 Type 2 diabetes mellitus with foot ulcer; L08.9 Local infection of the skin and subcutaneous tissue, unspecified; E11.69 Type 2 diabetes mellitus with other specified complication; Z20.828 Contact with and (suspected) exposure to other viral communicable diseases; N40.0 Benign prostatic hyperplasia without lower urinary tract symptoms; I10 Essential (primary) hypertension
CPT/HCPCS: 36415; 80053; 80202; 82550; 82553; 82948; 83036; 83605; 83735; 84100; 84443; 84484; 85025; 87040; 87071; 87075; 87186; 87205; 88304; 88311; 96372; 97139; 99284; J0360; J0692; J0720; J1650; J1815; J2001; J2405; J2543; J3370; J7050; U0002

== ENCOUNTER 2021-10-04 16:01 | Emergency (ER) | payer BC ==
[~2021-10-04] VITALS: Ht 177.8 cm; Wt 81.6 kg
[~2021-10-04 16:01] MED LIST: DOXYCYCLINE HY100 MG PO; FLOMAX0.4 MG PO; LANTUS 3ML100 UNITS/ SC; LEVOFLOXACIN500 MG PO; LISINOPRIL10 MG PO
[2021-10-04 16:25] LABS: BASOPHILS % 0.1 % (0.0-1.0); EOSINOPHILS % 0.4 % (0.0-6.0); HEMATOCRIT 40.6 % (38.2-49.6); HEMOGLOBIN 12.6 g/dL (14.0-18.0); LYMPHOCYTES # (AUTO) 1.8 (1.0-3.2); LYMPHOCYTES % 20.8 % (18.0-39.1); MEAN CORPUSCULAR HEMOGLOBIN 25.1 pg (28-32); MEAN CORPUSCULAR VOLUME 80.9 fL (81-99); MONOCYTES # (AUTO) 0.6 (0.2-0.8); MONOCYTES % 7.2 % (4.4-11.3); NEUTROPHILS % 70.9 % (38.7-80.0); PLATELET COUNT 214 x10e3/uL (140-360); RED BLOOD COUNT 5.02 x10e6/uL (4.3-5.7); RED CELL DISTRIBUTION WIDTH 12.9 % (11.7-14.4)
[2021-10-04 16:51] LABS: ALBUMIN 3.1 g/dL (3.5-5.0); ALBUMIN/GLOBULIN RATIO 0.8 (0.8-2.0); ANION GAP 15.8 mmol/L (8-16); CALCIUM 8.8 mg/dL (8.4-10.2); CREATININE, SERUM 1.47 mg/dL (0.72-1.25); POTASSIUM 4.8 mmol/L (3.5-5.1)
[2021-10-04 16:54] LABS: CLARITY,URINE CLEAR (CLEAR); COLOR,URINE YELLOW (YELLOW); KETONES,URINE NEGATIVE (NEGATIVE); LEUKOCYTE ESTERASE ,URINE NEGATIVE (NEGATIVE); NITRITE,URINE NEGATIVE (NEGATIVE); PROTEIN,URINE DIPSTICK 2+ (NEGATIVE); URINE UROBILINOGEN 0.2 mg/dL (0.2 - 1)
[2021-10-04] MEDS ORDERED: SODIUM CHLORIDE 0.9% 1000ML 1,000 ML IV ONE (17:00)
[2021-10-04] MEDS ORDERED: SODIUM CHLORIDE 0.9% 1000ML 1,000 ML ONE (17:08)
[2021-10-04] MEDS ORDERED: INSULIN REGULAR, HUMAN 100 UNIT/1 ML ONE (17:11)
[2021-10-04 17:14] LABS: BACTERIA,URINE MANY /HPF; EPITHELIAL CELLS,URINE FEW /LPF
[2021-10-04 17:15] LABS: RENAL EPITHELIAL CELLS,URINE FEW
[2021-10-04] MEDS ORDERED: INSULIN REGULAR, HUMAN 100 UNIT/1 ML IV ONE (17:30)
[2021-10-04 20:24] VITALS: BP 157/81
== END 2021-10-04 20:32 | disposition home or self-care (01) ==
LOC: ER 16:56
DX: U07.1 COVID-19 (principal); M54.50 Low back pain, unspecified; I10 Essential (primary) hypertension; E11.9 Type 2 diabetes mellitus without complications; N40.0 Benign prostatic hyperplasia without lower urinary tract symptoms
CPT/HCPCS: 36415; 71045; 74176; 80053; 81001; 82948; 85025; 99284; J1817; J7030; U0002